=== PATIENT | female | born 1930 | race Caucasian/White ===

== ENCOUNTER 2016-08-01 15:11 | Outpatient (CLI) | payer MEDICARE, MEDICAID | END 2016-08-01 15:12 | disposition home or self-care (01) | DX: M50.30 Other cervical disc degeneration, unspecified cervical region (principal); M47.812 Spondylosis without myelopathy or radiculopathy, cervical region ==

== ENCOUNTER 2017-08-31 13:20 | Outpatient (CLI) | payer MEDICARE, MEDICAID ==
--- NOTE | 2017-09-01 18:39 | Mammography Report ---
DIGITAL SCREENING MAMMOGRAM: 08/31/2017 CLINICAL INDICATION: An 87-year-old with family history of breast cancer for screening. COMPARISON: 07/2015, 02/2012, 10/2009. TECHNIQUE: Routine CC and MLO projections were obtained of the breasts. FINDINGS: The breasts again demonstrate heterogeneously dense fibroglandular parenchyma bilaterally. Coarse and punctate, typically benign calcifications are present. No suspicious masses, clustered microcalcifications or regions of architectural distortion are identified. IMPRESSION: BENIGN FINDINGS. RECOMMENDATIONS: Routine annual screening unless otherwise clinically indicated. BIRADS category 2 benign findings. STANDARD QUALIFYING STATEMENTS 1. This examination was reviewed with the aid of Computed-Aided Detection (CAD). 2. A negative or benign imaging report should not delay biopsy if clinically suspicious findings are present. Consider surgical consultation if warranted. More than 5% of cancers are not identified by imaging. 3. Dense breasts may obscure an underlying neoplasm. TD: 09/01/2017 18:37
== END 2017-08-31 13:21 | disposition home or self-care (01) ==
LOC: DI 13:20
PROVIDERS: ATTEND Internal Medicine
DX: Z12.31 Encounter for screening mammogram for malignant neoplasm of breast (principal); Z80.3 Family history of malignant neoplasm of breast
CPT/HCPCS: 77067

== ENCOUNTER 2017-12-13 12:56 | Observation (INO) | payer MEDICARE, MEDICAID ==
--- NOTE | 2017-12-13 13:59 | XRAY Report ---
EXAM: CHEST RADIOGRAPHY EXAM DATE: 12/13/2017 01:46 PM. CLINICAL HISTORY: Dizzy, chest pain. COMPARISON: None. TECHNIQUE: 2 views. FINDINGS: Lungs/Pleura: There are peripheral reticular interstitial densities bilaterally. There is no consolid ation or pleural effusion. Negative for pneumothorax. Mediastinum: There is a moderate-sized retrocardiac density with air-fluid level consistent with hiat al hernia. Heart size is normal. There is mild/moderate aortic arch atherosclerotic calcification. Other: None. IMPRESSION: 1. Moderate-sized hiatal hernia. 2. Peripheral reticular interstitial density, most suggestive of chronic airway thickening versus int erstitial fibrosis. [facility] Referring Provider Line: [phone] SITE ID: [id number]
--- NOTE | 2017-12-13 13:59 | XRAY Preliminary Report ---
Exam: XR CHEST 2 VIEW X-RAY IMPRESSION: 1. Moderate-sized hiatal hernia. 2. Peripheral reticular interstitial density, most suggestive of chronic airway thickening versus int erstitial fibrosis. [facility] SITE ID: [id number]
[2017-12-13 14:04] LABS: BASOPHILS % (AUTO) 0.3 %; EOSINOPHILS # (AUTO) 0.1 10^3/uL (0.0-0.7); EOSINOPHILS % (AUTO) 1.1 %; HGB - HEMOGLOBIN 12.5 g/dL (12.0-16.0); LYMPHOCYTES # (AUTO) 0.8 10^3/uL (1.5-3.5); LYMPHOCYTES % (AUTO) 9.8 %; MEAN CORPUSCULAR HEMOGLOBIN 28.1 pg (27.0-31.0); MEAN CORPUSCULAR HGB CONC 33.2 g/dL (32.0-36.0); MEAN CORPUSCULAR VOLUME 84.9 fL (81.0-99.0); MONOCYTES # (AUTO) 0.4 10^3/uL (0.0-1.0); NEUTROPHILS # (AUTO) 6.9 10^3/uL (1.5-6.6); NEUTROPHILS % (AUTO) 83.8 %; PLT - PLATELET COUNT 229 10^3/uL (130-450); RED BLOOD COUNT 4.45 10^6/uL (4.20-5.40); RED CELL DISTRIBUTION WIDTH 14.2 % (12.0-15.0); WHITE BLOOD COUNT 8.2 x10^3/uL (4.8-10.8)
--- NOTE | 2017-12-13 14:13 | ED Physician Documentation ---
PD HPI ABD PAIN - Stated complaint Stated Complaint: DIZZY/RIB PX - Chief complaint Chief Complaint: Cardiac - History obtained from History obtained from: Patient, Friend - History of Present Illness Timing - onset: Today Timing - duration: Hours Timing - details: Gradual onset, Still present Quality: Sharp, Pain Location: RUQ Improved by: Laying still Worsened by: Moving, Breathing, Position, Palpation Associated symptoms: Nausea, Dizzy, Near syncope / syncope Similar symptoms before: Has not had sx before Recently seen: Not recently seen - Additional information Additional information: 87-year-old female was well last week and yesterday evening she began to have some chills and this morning while she was in [employer] she began to have some right upper quadrant pain she developed diaphoresis and nausea and felt faint. She is brought here to the emergency department by a friend for evaluation. Review of Systems Constitutional: reports: Chills. denies: Fever Eyes: denies: Decreased vision Ears: denies: Ear pain Nose: denies: Rhinorrhea / runny nose, Congestion Throat: denies: Sore throat Cardiac: denies: Chest pain / pressure, Palpitations Respiratory: denies: Dyspnea, Cough GI: reports: Abdominal Pain, Nausea. denies: Vomiting : denies: Dysuria, Frequency Skin: denies: Rash Musculoskeletal: denies: Neck pain, Back pain Neurologic: denies: Generalized weakness, Focal weakness, Numbness PD PAST MEDICAL HISTORY - Past Medical History Cardiovascular: Hypertension Musculoskeletal: Osteoarthritis - Allergies Allergies/Adverse Reactions: Allergies Allergy/AdvReac Type Severity Reaction Status Date / Time No Known Drug Allergies Allergy Verified 12/13/17 13:05 PD ED PE NORMAL - Vitals Vital signs reviewed: Yes (hypertensiv mild, bradycardic) - General General: No acute distress, Well developed/nourished - HEENT HEENT: Atraumatic, PERRL, EOMI - Neck Neck: Supple, no meningeal sign, No bony TTP - Cardiac Cardiac: RRR, No murmur - Respiratory Respiratory: No respiratory distress, Other (bibasilar rales ) - Abdomen Abdomen: Soft, Other (RUQ tenderness with + jones's ) - Back Back: No CVA TTP, No spinal TTP - Derm Derm: Normal color, Warm and dry, No rash - Extremities Extremities: No deformity, No edema - Neuro Neuro: No motor deficit, No sensory deficit Eye Opening: Spontaneous Motor: Obeys Commands Verbal: Oriented GCS Score: 15 - Psych Psych: Normal mood, Normal affect Results - Vitals Vitals: Vital Signs - 24 hr 12/13/17 13:03 Temperature 35.8 C L Heart Rate 45 L Respiratory 16 Rate Blood Pressure 148/68 H O2 Saturation 99 Oxygen O2 Source Room air - EKG (time done) 1314 Rate: Rate (enter#) (48) Rhythm: Sinus bradycardia Compare to prior EKG: Old EKG unavailable Computer interpretation: Disagree with computer (I do not see q-waves in the lateral leads) - Labs Labs: Laboratory Tests 12/13/17 12/13/17 12/13/17 13:58 13:58 13:58 WBC 8.2 RBC 4.45 Hgb 12.5 Hct 37.8 MCV 84.9 MCH 28.1 MCHC 33.2 RDW 14.2 Plt Count 229 MPV 8.0 Neut # 6.9 H Lymph # 0.8 L King # 0.4 Eos # 0.1 Baso # 0.0 Absolute Nucleated RBC 0.00 Nucleated RBC % 0.0 Sodium 131 L Potassium 3.6 Chloride 97 L Carbon Dioxide 26 Anion Gap 8.0 BUN 21 H Creatinine 0.8 Estimated GFR (MDRD) 68 L Glucose 128 H Calcium 9.3 Total Bilirubin 0.9 AST 22 ALT 15 Alkaline Phosphatase 68 Troponin I < 0.04 Total Protein 7.3 Albumin 4.0 Globulin 3.3 Albumin/Globulin Ratio 1.2 Lipase 31 - Rads (name of study) 2 veiw chest Radiology: Prelim report reviewed (Impression: 1. Moderate sized hiatal hernia 2. peripheral reticular interstitial density, most suggestive of chronic airway thickening versus interstitial fibrosis.), EMP read indepedently, See rad report abd ultrasound Radiology: Prelim report reviewed (Impression: Distended thick-walled gallbladder containing sludge. Unable to accurately assess for sonographic Jones sign is patient received pain medications prior to the exam. Gallbladder wall is thickening is a nonspecific sign which can be seen with cholecystitis as well as systemic process including pancreatitis hepatitis and others.), EMP read indepedently, See rad report Procedures - Bedside sono Bedside sono by EMP: With the use of bedside ultrasound the abdomen is examined in the right upper quadrant. There is an enlarged tender gallbladder with a thickened wall that reproduces the pain the patient is experiencing. There are no obvious stones the gallbladder is distended and tender. - IVC sono (time) 1404 Bedside IVC sono: IVC measures (cm) (1.32), Dehydration (minimal est 500ml deficit) PD MEDICAL DECISION MAKING - ED course Complexity details: reviewed old records, reviewed results, re-evaluated patient , considered differential, d/w patient, d/w family ED course: 87 y/o female was well yesterday and today she has significant right upper quadrant tenderness and pain that caused a near syncopal episode while she was in [employer]. She is come to the emergency department for evaluation and we have discovered an enlarged tender gallbladder with a thickened wall. She is diagnosed with cholecystitis. Dr. Popeye Gonzales is consulted in the case and will admit the patient to observation as she is now pain free and has a normal WBC after administration of toradal. Departure - Departure Disposition: ED Place in Observation Clinical Impression: Cholecystitis, acute Condition: Stable
[2017-12-13 14:16] LABS: ALBUMIN/GLOBULIN RATIO 1.2 (1.0-2.2); BILIRUBIN,TOTAL 0.9 mg/dL (0.2-1.0); CALCIUM 9.3 mg/dL (8.5-10.3); CREATININE 0.8 mg/dL (0.4-1.0); TOTAL PROTEIN 7.3 g/dL (6.7-8.2)
[2017-12-13] MEDS ORDERED: SODIUM CHLORIDE 0.9% 500 ML IV ONE (14:38)
[2017-12-13] MEDS ORDERED: KETOROLAC 60 MG/2 ML VIAL IVP STA (15:50)
--- NOTE | 2017-12-13 17:09 | Ultrasound Report ---
EXAM: ABDOMEN ULTRASOUND LIMITED, RUQ EXAM DATE: 12/13/2017 04:21 PM. CLINICAL HISTORY: Right upper quadrant tenderness with nausea/vomiting. COMPARISON: None. TECHNIQUE: Real-time scanning was performed with static images obtained. FINDINGS: Liver: Normal parenchymal echotexture. Main portal vein flow: Hepatopetal. Gallbladder: Distended and thick walled, the wall measuring up to 9 mm. Contains sludge. No sonograph ic Jones's sign, however, patient had received pain medications. Biliary System: CBD measures 5 mm. No intrahepatic or extrahepatic ductal dilatation. Right Kidney: 10.4 cm in length. Normal parenchymal echotexture. The visualized shadowing stones or h ydronephrosis. IMPRESSION: Distended, thick-walled gallbladder containing sludge. Unable to accurately assess for so nographic Jones's sign as patient received pain medications prior to the exam. Gallbladder wall thic kening is a nonspecific sign which can be seen with cholecystitis as well as systemic processes inclu ding pancreatitis, hepatitis, others. [facility] Referring Provider Line: [phone] SITE ID: [id number]
[2017-12-13] MEDS ORDERED: SODIUM CHLORIDE FLUSH 0.9% 10 ML SYRINGE IVP PRN (18:46)
[2017-12-13] MEDS ORDERED: ACETAMINOPHEN 1,000 MG/100 ML 100 ML IV PRN (18:46)
[2017-12-13] MEDS ORDERED: LACTATED RINGERS 1,000 ML IV SCH (19:00)
[2017-12-13] MEDS ORDERED: SODIUM CHLORIDE 0.9% 1,000 ML IV SCH (19:00)
--- NOTE | 2017-12-13 19:07 | CONSULTATION NOTE ---
Referring Provider Name of Referring Provider:: Dr. Marcano Consult Date: 12/13/17 Chief Complaint - Chief Complaint Chief Complaint: abdominal pain History of Present Illness - Admitted From Admitted From:: ER - History Obtained From Records Reviewed: yes History obtained from: pt Exam Limitations: none - History of Present Illness HPI Comment/Other: 87 yo female in her usual state of health until she awakend from sleep at 0530 today with RUQ pain, described as constant, steady, 3/10. She went to [facility] and while there noted dizziness, diaphoresis, and nausea, and was brought to the ER for further evaluation. In the ER she was c/o 5/10 pain and was given ketorolac following which her pain has resolved and she feels back to normal now. No hx prior similar episodes, hepatitis/jaundice, vomiting, wt loss, change in bowel habits, fever/chills, melena, hematochezia. Neg FH gallbladder disease and CRC. She has a hx of GERD which is well controlled with PPI therapy ; no dysphagia. No hx PUD. No use of NSAIDs, tobacco, or alcohol. History - Past Medical History Cardiovascular: reports: Hypertension Respiratory: reports: None Neuro: reports: None Endocrine/Autoimmune: reports: HyPOthyroidism GI: reports: GERD HEENT: reports: Chronic hearing loss Psych: reports: None Musculoskeletal: reports: Osteoarthritis MRSA Hx?: No - Past Surgical History General: reports: Colonoscopy (2006 several small polyps removed 10yr f/u rec per pt) /[employer]: reports: Hysterectomy HEENT: reports: Other (stapedectomy bilat) - Family & Social History Living arrangement: At home Living Situation: Alone - Substance History Use: Uses substance without health or social issues: NONE Abuse: Recurrent use of substance despite neg consequences: NONE Dependence: Experiences withdrawal or developed tolerances: NONE - POLST Patient has POLST: No POLST Status: Full Code Meds/Allgy - Home Medications Home Medications: Ambulatory Orders Medication Instructions Recorded Confirmed Levothyroxine [Synthroid] 125 mcg PO QDAC 12/13/17 12/13/17 Lisinopril/Hydrochlorothiazide 1 each PO DAILY 12/13/17 12/13/17 [Lisinopril-Hctz 20-12.5 mg Tab] Omeprazole [PriLOSEC] 20 mg PO DAILY 12/13/17 12/13/17 - Allergies Allergies/Adverse Reactions: Allergies Allergy/AdvReac Type Severity Reaction Status Date / Time No Known Drug Allergies Allergy Verified 12/13/17 13:05 Review of Systems - Constitutional Constitutional: reports: Diaphoresis. denies: Fever, Chills, Weight gain, Weight loss - Cardiovascular Cariovascular: reports: Lightheadedness, Exertional dyspnea. denies: Irregular heart rate, Palpitations, Chest pain, Edema, Syncope - Respiratory Respiratory: reports: SOB with exertion. denies: Cough, Sputum production, Wheezing, SOB at rest - Gastrointestinal Gastrointestinal: reports: Abdominal pain, Nausea. denies: Abdominal distention , Constipation, Diarrhea, Change in bowel habits, Rectal bleeding, Black stools , Bloody stools, Vomiting - Genitourinary Genitourinary: reports: Frequency. denies: Dysuria - Musculoskeletal Musculoskeletal: reports: Back pain - Hematologic/Lymphatic Hematologic/Lymphatic: denies: Bruising, Blood clots, Bleeding tendencies - All Other Systems All Other Systems: reports: Reviewed and negative Exam - Vital Signs Reviewed Vital Signs: Yes Vital Signs: Vital Signs x48h Temp Pulse Resp BP Pulse Ox 12/13/17 13:03 35.8 C L 45 L 16 148/68 H 99 - Physical Exam General Appearance: positive: No acute distress, Alert Eyes Bilateral: positive: Normal inspection, No scleral icterus ENT: positive: ENT inspection nml, Pharynx nml, No signs of dehydration Neck: positive: Nml inspection, No JVD. negative: Lymphadenopathy (R), Lymphadenopathy (L) Respiratory: positive: Chest non-tender, No respiratory distress, Breath sounds nml. negative: Wheezes, Rales, Rhonchi Cardiovascular: positive: Regular rate & rhythm, No murmur, No gallop Abdomen: positive: Nml bowel sounds, Tenderness (minimal RUQ tenderness to deep palpation; neg Jones's sign). negative: No organomegaly, No distention, Guarding, Rebound, Hepatomegaly, Splenomegaly, Mass Back: positive: Nml inspection. negative: CVA tenderness (R), CVA tenderness (L ) Skin: positive: Color nml, Warm, Dry. negative: Diaphoresis Extremities: positive: Non-tender, Nml appearance, No pedal edema. negative: Calf tenderness Neurologic/Psychiatric: positive: Oriented x3 Conclusion/Plan - Diagnosis Diagnosis: RUQ pain, resolving, likely due to biliary colic or subacute acalculous cholecystitis in elderly female. Bradycardia of unclear etiology. - Plan Plan: Admit for observation and hospitalist consultation. If pain recurs, then will recommend lap michelle if cleared medically for surgery. Discussed with pt who agrees with this plan. - Lab Results Fish Bones: 12/13/17 13:58 12/13/17 13:58 - Diagnostic Imaging Results Diagnostic Imaging Results: positive: Final report reviewed Diagnostic Imaging Results Comments: CT abd/pelvis: indistinct gb wall; rec US for further eval ABD US: thickened gb wall, sludge but no stones in gb; nl bile ducts; no pericholecystic fluid; neg Jones's sign. CXR: possible mild pulm fibrosis; NAD - EKG Results EKG Interpreted Independently: No EKG Findings: sinus bradycardia rate in 40s
[2017-12-13 20:12] LABS: BILIRUBIN,URINE NEGATIVE (NEGATIVE); GLUCOSE, URINE (UA) NEGATIVE (NEGATIVE); KETONES,URINE (UA) NEGATIVE (NEGATIVE); LEUKOCYTE ESTERASE, URINE NEGATIVE (NEGATIVE); NITRITE,URINE NEGATIVE (NEGATIVE); OCCULT BLOOD,URINE TRACE-INTA (NEGATIVE); PROTEIN,URINE NEGATIVE (NEGATIVE); UROBILINOGEN,URINE 0.2 (NORMAL) E.U./dL (NORMAL)
[2017-12-13 20:14] LABS: CLARITY,URINE CLEAR (CLEAR)
[2017-12-13] MEDS ORDERED: cloNIDine 0.1 MG PATCH TOP SCH (21:00)
[2017-12-13] MEDS: cloNIDine 0.1 MG TABLET PO PRN ×2 (21:06→21:35)
[2017-12-13] MEDS: SODIUM CHLORIDE 0.9% 1,000 ML IV SCH (21:07)
[2017-12-13] MEDS: SODIUM CHLORIDE 1 GM TABLET PO SCH (21:35)
[2017-12-14] MEDS: SODIUM CHLORIDE FLUSH 0.9% 10 ML SYRINGE IVP SCH ×2 (00:03→09:43)
[2017-12-14] MEDS ORDERED: cloNIDine 0.2 MG PATCH TOP SCH (01:00)
--- NOTE | 2017-12-14 01:20 | CONSULTATION NOTE ---
Referring Provider Name of Referring Provider:: Popeye Gonzales MD Consult Date: 12/13/17 Chief Complaint - Chief Complaint Chief Complaint: Nausea, RUQ pain History of Present Illness - Admitted From Admitted From:: Home - History Obtained From History obtained from: patient, ED physician Exam Limitations: None noted - History of Present Illness HPI Comment/Other: Mrs. Vidhya Lorenzana is a very pleasant 87-year-old woman who has had abdominal pain beginning yesterday with associated nausea. When the pain did not go away she came to the emergency department for evaluation and treatment. While here a CAT scan of her abdomen suggests that she may have cholecystitis and her admitting physician, Dr. Popeye Gonzales, has consulted the hospitalist team for medical management and evaluation/treatment of her bradycardia which was 45 in the ED but has since resolved. History - Past Medical History Cardiovascular: reports: Hypertension Respiratory: reports: None Neuro: reports: None Endocrine/Autoimmune: reports: HyPOthyroidism GI: reports: GERD : reports: Incontinence HEENT: reports: Chronic hearing loss Psych: reports: None Musculoskeletal: reports: Osteoarthritis Derm: reports: None, Other MRSA Hx?: No - Past Surgical History General: reports: Colonoscopy (2006 several small polyps removed 10yr f/u rec per pt) /[employer]: reports: Hysterectomy HEENT: reports: Other (stapedectomy bilat) - Family & Social History Living arrangement: At home Living Situation: Alone - Substance History Use: Uses substance without health or social issues: NONE Abuse: Recurrent use of substance despite neg consequences: NONE Dependence: Experiences withdrawal or developed tolerances: NONE - POLST Patient has POLST: No POLST Status: Full Code Meds/Allgy - Home Medications Home Medications: Ambulatory Orders Medication Instructions Recorded Confirmed Calcium Carbonate/Vitamin D3 12/13/17 [Calcium 250-Vit D3 125 Tablet] Levothyroxine [Synthroid] 125 mcg PO QDAC 12/13/17 12/13/17 Lisinopril/Hydrochlorothiazide 1 each PO DAILY 12/13/17 12/13/17 [Lisinopril-Hctz 20-12.5 mg Tab] Multivitamin [Multivitamins] 1 each PO 12/13/17 Omeprazole [PriLOSEC] 20 mg PO DAILY 12/13/17 12/13/17 - Allergies Allergies/Adverse Reactions: Allergies Allergy/AdvReac Type Severity Reaction Status Date / Time No Known Drug Allergies Allergy Verified 12/13/17 13:05 Review of Systems - Constitutional Constitutional: reports: Poor appetite. denies: Fatigue, Fever, Chills, Malaise - Eyes Eyes: denies: Pain, Irritation, Amaurosis, Blurred vision, Dipolpia - Ears, Nose & Throat Ears, Nose & Throat: reports: Hearing loss, Hearing aids. denies: Ear pain, Tinnitus, Vertigo, Nasal pain, Nasal discharge, Nosebleeds, Nasal congestion - Cardiovascular Cariovascular: denies: Irregular heart rate, Palpitations, Chest pain, Edema, Syncope - Respiratory Respiratory: denies: Cough, Sputum production, Wheezing, Snoring, Hemoptysis, Orthopnea, SOB at rest, SOB with exertion - Gastrointestinal Gastrointestinal: reports: Abdominal pain, Nausea. denies: Abdominal distention , Constipation, Diarrhea, Change in bowel habits, Vomiting - Genitourinary Genitourinary: denies: Dysuria, Frequency, Urgency, Hematuria - Musculoskeletal Musculoskeletal: denies: Muscle pain, Back pain, Muscle aches, Stiffness - Integumentary Integumentary: denies: Rash, Pruritis, Lesions, Dryness - Neurological Neurological: denies: General weakness, Focal weakness, Headache, Dizziness - Psychiatric Psychiatric: denies: Depression, Anxiety, Suicidal, Hallucinations - Endocrine Endocrine: denies: Polyuria, Polydypsia, Polyphagia - Hematologic/Lymphatic Hematologic/Lymphatic: denies: Anemia, Bruising, Petechiae, Lymphadenopathy - All Other Systems All Other Systems: reports: Reviewed and negative Exam - Vital Signs Reviewed Vital Signs: Yes Vital Signs: Vital Signs x48h Temp Pulse Resp BP BP Pulse Ox 12/13/17 23:46 36.9 C 62 17 130/53 L 96 12/13/17 20:08 36.0 C L 69 18 206/67 H 96 12/13/17 19:55 18 208/70 H 96 - Physical Exam General Appearance: positive: No acute distress, Alert. negative: Anxious, Lethargic Eyes Bilateral: positive: Normal inspection, PERRL, EOMI, No lid inflammation, Conjunctivae nml, No scleral icterus ENT: positive: ENT inspection nml, Pharynx nml, No signs of dehydration Neck: positive: Nml inspection, Thyroid nml, No JVD, Trachea midline. negative : Thyromegaly Respiratory: positive: Chest non-tender, No respiratory distress, Breath sounds nml. negative: Wheezes, Rales, Rhonchi Cardiovascular: positive: Regular rate & rhythm, No murmur, No gallop Peripheral Pulses: positive: 1+ Abdomen: positive: No organomegaly, Nml bowel sounds, No distention, Tenderness , Guarding. negative: Rebound, Hepatomegaly, Splenomegaly, Mass Back: positive: Nml inspection. negative: CVA tenderness (R), CVA tenderness (L ) Skin: positive: Color nml, No rash, Warm, Dry. negative: Cyanosis Extremities: positive: Non-tender, Full ROM, Nml appearance, No pedal edema Neurologic/Psychiatric: positive: Oriented x3, CN's nml (2-12), Motor nml, Sensation nml, Mood/affect nml Conclusion/Plan - Diagnosis Diagnosis: 1) RUQ pain, likely cholecystitis. Pt is currently NPO, may have surgery tomorrow. Coag studies ordered, corecting slight electrolyte abnormalities. 2) Bradycardia on admission, now resolved. Pt is not on any beta blockers or calcium channel blockers. Will check echocardiogram, troponin. 3) Hypothyroidism, continue synthroid. 4) Hypertension, continue ACEI - Lab Results Lab results reviewed: Yes Fish Bones: 12/13/17 13:58 12/13/17 13:58 - Diagnostic Imaging Results Diagnostic Imaging Results: positive: Final report reviewed Diagnostic Imaging Results Comments: EXAM: CHEST RADIOGRAPHY EXAM DATE: 12/13/2017 01:46 PM. CLINICAL HISTORY: Dizzy, chest pain. COMPARISON: None. TECHNIQUE: 2 views. FINDINGS: Lungs/Pleura: There are peripheral reticular interstitial densities bilaterally. There is no consolidation or pleural effusion. Negative for pneumothorax. Mediastinum: There is a moderate-sized retrocardiac density with air-fluid level consistent with hiatal hernia. Heart size is normal. There is mild/moderate aortic arch atherosclerotic calcification. Other: None. IMPRESSION: 1. Moderate-sized hiatal hernia. 2. Peripheral reticular interstitial density, most suggestive of chronic airway thickening versus interstitial fibrosis. EXAM: ABDOMEN ULTRASOUND LIMITED, RUQ EXAM DATE: 12/13/2017 04:21 PM. CLINICAL HISTORY: Right upper quadrant tenderness with nausea/vomiting. COMPARISON: None. TECHNIQUE: Real-time scanning was performed with static images obtained. FINDINGS: Liver: Normal parenchymal echotexture. Main portal vein flow: Hepatopetal. Gallbladder: Distended and thick walled, the wall measuring up to 9 mm. Contains sludge. No sonographic Jones's sign, however, patient had received pain medications. Biliary System: CBD measures 5 mm. No intrahepatic or extrahepatic ductal dilatation. Right Kidney: 10.4 cm in length. Normal parenchymal echotexture. The visualized shadowing stones or hydronephrosis. IMPRESSION: Distended, thick-walled gallbladder containing sludge. Unable to accurately assess for sonographic Jones's sign as patient received pain medications prior to the exam. Gallbladder wall thickening is a nonspecific sign which can be seen with cholecystitis as well as systemic processes including pancreatitis, hepatitis, others. - EKG Results EKG Interpreted Independently: Yes EKG Comparison: Old EKG unavailable EKG Findings: Sinus bradycardia, rate 48.
[2017-12-14 05:18] LABS: BASOPHILS % (AUTO) 0.4 %; EOSINOPHILS # (AUTO) 0.1 10^3/uL (0.0-0.7); EOSINOPHILS % (AUTO) 1.2 %; HGB - HEMOGLOBIN 11.2 g/dL (12.0-16.0); LYMPHOCYTES % (AUTO) 15.2 %; MEAN CORPUSCULAR HEMOGLOBIN 28.2 pg (27.0-31.0); MEAN CORPUSCULAR HGB CONC 33.3 g/dL (32.0-36.0); MEAN CORPUSCULAR VOLUME 84.8 fL (81.0-99.0); MEAN PLATELET VOLUME 8.2 fL (7.9-10.8); MONOCYTES # (AUTO) 0.7 10^3/uL (0.0-1.0); MONOCYTES % (AUTO) 10.2 %; NEUTROPHILS # (AUTO) 4.9 10^3/uL (1.5-6.6); PLT - PLATELET COUNT 200 10^3/uL (130-450); RED BLOOD COUNT 3.97 10^6/uL (4.20-5.40); RED CELL DISTRIBUTION WIDTH 14.3 % (12.0-15.0); WHITE BLOOD COUNT 6.7 x10^3/uL (4.8-10.8)
[2017-12-14 05:27] LABS: ALBUMIN 3.3 g/dL (3.2-5.5); ALBUMIN/GLOBULIN RATIO 1.2 (1.0-2.2); BILIRUBIN,TOTAL 0.8 mg/dL (0.2-1.0); CALCIUM 8.9 mg/dL (8.5-10.3); CREATININE 0.6 mg/dL (0.4-1.0)
[2017-12-14 05:30] LABS: PT - PROTHROMBIN TIME 11.5 secs (9.9-12.6)
[2017-12-14] MEDS: SODIUM CHLORIDE 0.9% 1,000 ML IV SCH (06:21)
[2017-12-14] MEDS ORDERED: SODIUM CHLORIDE 0.9% 1,000 ML IV SCH (08:17)
--- NOTE | 2017-12-14 08:20 | PROVIDER PROGRESS NOTE ---
Subjective - Prog Note Date Prog Note Date: 12/14/17 Prog Note Time: 08:18 - Subjective Pt reports feeling: No change Subjective: pt c/o minimal RUQ discomfort when taking a deep breath, no N/V; does not call it pain and doesn't want any analgesics; is hungry; wants to avoid surgery unless absolutely necessary. Current Medications - Current Medications Current Medications: Active Medications Generic Name Dose Route Start Last Admin Trade Name Freq PRN Reason Stop Dose Admin Clonidine HCl 0.1 mg 12/13/17 20:39 12/13/17 21:06 Catapres PO 0.1 mg Q2H PRN Administration SBP>140 or DBP>90 Clonidine HCl 1 patch 12/14/17 01:00 12/14/17 02:42 [id number] TOP Not Given Q7D GIANA Enoxaparin Sodium 40 mg 12/14/17 09:00 Lovenox SUBQ DAILY GIANA Acetaminophen 100 mls @ 400 mls/hr 12/13/17 18:46 Ofirmev IV Q6HR PRN PAIN Potassium Chloride 10 meq in 100 mls @ 100 mls/hr 12/14/17 08:03 Potassium Chloride IV 12/14/17 10:02 Q1H GIANA Sodium Chloride 1,000 mls @ 50 mls/hr 12/14/17 08:17 Normal Saline 0.9% IV .Q20H GIANA Nystatin 1 applic 12/14/17 09:00 Nystop TOP BID GIANA Sodium Chloride 10 ml 12/14/17 01:00 12/14/17 00:03 Normal Saline Flush 0.9% IVP Not Given 0100,0900,1700 GIANA Sodium Chloride 10 ml 12/13/17 18:46 Normal Saline Flush 0.9% IVP PRN PRN NEEDED PER PROVIDER ORDERS Sodium Chloride 1 gm 12/13/17 20:00 12/13/17 21:35 Salt Tab PO 1 gm DAILY GIANA Administration Calcium Carbonate/Vitamin D3 [Calcium 250-Vit D3 125 Tablet] 12/13/17 Levothyroxine [Synthroid] 125 mcg PO QDAC 12/13/17 Lisinopril/Hydrochlorothiazide [Lisinopril-Hctz 20-12.5 mg Tab] 1 each PO DAILY 12/13/17 Multivitamin [Multivitamins] 1 each PO 12/13/17 Omeprazole [PriLOSEC] 20 mg PO DAILY 12/13/17 Objective - Vital Signs/Intake & Output Reviewed Vital Signs: Yes Vital Signs: Vital Signs x48h Temp Pulse Resp BP Pulse Ox 12/14/17 04:47 36.9 C 58 L 17 118/48 L 96 12/14/17 02:43 55 L 132/55 H 12/14/17 02:40 37.0 C 62 18 147/61 H 97 Intake & Output: Intake & Output 12/11/17 12/12/17 12/13/17 12/14/17 23:59 23:59 23:59 23:59 Intake Total 923.333 Balance 923.333 - Objective General Appearance: positive: No acute distress, Alert Eyes Bilateral: positive: Normal inspection, No scleral icterus ENT: positive: Pharynx nml, No signs of dehydration Neck: positive: Nml inspection, No JVD Respiratory: positive: Chest non-tender, No respiratory distress, Breath sounds nml, Rales (fine right basilar rales) Cardiovascular: positive: Regular rate & rhythm, No murmur, No gallop Abdomen: positive: No organomegaly, Nml bowel sounds, No distention, Tenderness (minimal to deep palpation in RUQ; neg Jones's; no peritoneal signs). negative : Guarding, Rebound, Hepatomegaly, Splenomegaly, Mass Skin: positive: Color nml, Warm, Dry Extremities: positive: Non-tender, No pedal edema. negative: Calf tenderness Neurologic/Psychiatric: positive: Oriented x3 - Lab Results Fish Bones: 12/14/17 04:43 12/14/17 04:43 Other Labs: Lab Results x24hrs 12/14/17 12/14/17 12/14/17 Range/Units 04:43 04:43 04:43 WBC (4.8-10.8) x10^3/uL RBC (4.20-5.40) 10^6/uL Hgb (12.0-16.0) g/dL Hct (37.0-47.0) % MCV (81.0-99.0) fL MCH (27.0-31.0) pg MCHC (32.0-36.0) g/dL RDW (12.0-15.0) % Plt Count (130-450) 10^3/uL MPV (7.9-10.8) fL Neut # (1.5-6.6) 10^3/uL Lymph # (1.5-3.5) 10^3/uL [place] # (0.0-1.0) 10^3/uL Eos # (0.0-0.7) 10^3/uL Baso # (0.0-0.1) 10^3/uL Absolute Nucleated RBC x10^3/uL Nucleated RBC % /100WBC PT 11.5 (9.9-12.6) secs INR 1.0 (0.8-1.2) APTT 28.0 (24.9-33.3) secs Sodium (135-145) mmol/L Potassium (3.5-5.0) mmol/L Chloride (101-111) mmol/L Carbon Dioxide (21-32) mmol/L Anion Gap (6-13) BUN (6-20) mg/dL Creatinine (0.4-1.0) mg/dL Estimated GFR (MDRD) (>89) Glucose (70-100) mg/dL Calcium (8.5-10.3) mg/dL Total Bilirubin (0.2-1.0) mg/dL AST (10-42) IU/L ALT (10-60) IU/L Alkaline Phosphatase (42-121) IU/L Total Protein (6.7-8.2) g/dL Albumin (3.2-5.5) g/dL Globulin (2.1-4.2) g/dL Albumin/Globulin Ratio (1.0-2.2) TSH 0.64 (0.34-5.60) uIU/mL Urine Color Urine Clarity (CLEAR) Urine pH (5.0-7.5) PH Ur Specific [place] (1.002-1.030) Urine Protein (NEGATIVE) mg/dL Urine Glucose (UA) (NEGATIVE) mg/dL Urine Ketones (NEGATIVE) mg/dL Urine Occult Blood (NEGATIVE) Urine Nitrite (NEGATIVE) Urine Bilirubin (NEGATIVE) Urine Urobilinogen (NORMAL) E.U./dL Ur Leukocyte Esterase (NEGATIVE) Ur Microscopic Review Urine Culture Comments 12/14/17 12/14/17 12/13/17 Range/Units 04:43 04:43 20:00 WBC 6.7 (4.8-10.8) x10^3/uL RBC 3.97 L (4.20-5.40) 10^6/uL Hgb 11.2 L (12.0-16.0) g/dL Hct 33.6 L (37.0-47.0) % MCV 84.8 (81.0-99.0) fL MCH 28.2 (27.0-31.0) pg MCHC 33.3 (32.0-36.0) g/dL RDW 14.3 (12.0-15.0) % Plt Count 200 (130-450) 10^3/uL MPV 8.2 (7.9-10.8) fL Neut # 4.9 (1.5-6.6) 10^3/uL Lymph # 1.0 L (1.5-3.5) 10^3/uL [place] # 0.7 (0.0-1.0) 10^3/uL Eos # 0.1 (0.0-0.7) 10^3/uL Baso # 0.0 (0.0-0.1) 10^3/uL Absolute Nucleated RBC 0.00 x10^3/uL Nucleated RBC % 0.0 /100WBC PT (9.9-12.6) secs INR (0.8-1.2) APTT (24.9-33.3) secs Sodium 136 (135-145) mmol/L Potassium 3.3 L (3.5-5.0) mmol/L Chloride 102 (101-111) mmol/L Carbon Dioxide 26 (21-32) mmol/L Anion Gap 8.0 (6-13) BUN 17 (6-20) mg/dL Creatinine 0.6 (0.4-1.0) mg/dL Estimated GFR (MDRD) 95 (>89) Glucose 98 (70-100) mg/dL Calcium 8.9 (8.5-10.3) mg/dL Total Bilirubin 0.8 (0.2-1.0) mg/dL AST 19 (10-42) IU/L ALT 12 (10-60) IU/L Alkaline Phosphatase 53 (42-121) IU/L Total Protein 6.0 L (6.7-8.2) g/dL Albumin 3.3 (3.2-5.5) g/dL Globulin 2.7 (2.1-4.2) g/dL Albumin/Globulin Ratio 1.2 (1.0-2.2) TSH (0.34-5.60) uIU/mL Urine Color YELLOW Urine Clarity CLEAR (CLEAR) Urine pH 7.0 (5.0-7.5) PH Ur Specific [place] 1.010 (1.002-1.030) Urine Protein NEGATIVE (NEGATIVE) mg/dL Urine Glucose (UA) NEGATIVE (NEGATIVE) mg/dL Urine Ketones NEGATIVE (NEGATIVE) mg/dL Urine Occult Blood [place] (NEGATIVE) Urine Nitrite NEGATIVE (NEGATIVE) Urine Bilirubin NEGATIVE (NEGATIVE) Urine Urobilinogen 0.2 (NORMAL) (NORMAL) E.U./dL Ur Leukocyte Esterase NEGATIVE (NEGATIVE) Ur Microscopic Review NOT INDICATED Urine Culture Comments NOT INDICATED ABX Reporting Has patient been on IV antibiotics over the past 48 hours?: No Assessment/Plan - Problem List (1) Cholecystitis, acute Impression: Very mild subacute acalculous cholecystitis in an 87 yo female. No signs of sepsis or biliary obstruction; no stones noted on US. Plan: pt wishes to avoid surgery if possible; will start low fat diet and continue observation; if sx worsen, will recommend lap michelle. Echocardiogram pending per Dr. Santoyo
[2017-12-14] MEDS ORDERED: ENOXAPARIN 40 MG/0.4 ML SYRINGE SUBQ SCH (09:00)
[2017-12-14] MEDS ORDERED: NYSTATIN POWDER 15 GM TOP SCH (09:00)
[2017-12-14] MEDS: POTASSIUM CHLOR 10 MEQ/100 ML 10 MEQ/100 ML BAG IV SCH ×2 (09:34→10:46)
[2017-12-14] MEDS: SODIUM CHLORIDE 1 GM TABLET PO SCH (09:39)
[2017-12-14] MEDS ORDERED: POTASSIUM CHLORIDE 20 MEQ TABLET PO ONE (11:41)
[2017-12-14 14:38] VITALS: BP 158/54
--- NOTE | 2017-12-14 15:04 | Discharge Plan ---
Discharge Plan Disposition: 01 Home, Self Care Condition: Good Diet: Regular (low fat diet) Activity Restrictions: No Restrictions Shower Restrictions: No Driving Restrictions: No Instruction Topics: Gallstones Additional Instructions or Follow Up instructions: Call Dr. Popeye Gonzales's office at [phone] to arrange for a follow up appointment for 1 week or sooner if pain recurs. No Smoking: If you smoke, Please STOP! Call for help. Follow-up with: Shayna Astorga MD [Primary Care Provider] - 1 Week
--- NOTE | 2017-12-14 15:10 | DISCHARGE SUMMARY ---
"Discharge Summary Admit Date: 12/13/17 Discharge Date: 12/14/17 Discharging Provider: Popeye Gonzales MD Primary Care Provider: Dr. Fuller Code Status: Attempt Resuscitation Condition at Discharge: Good Discharge Disposition: 01 Home, Self Care Discharge Facility Name: [facility] - DIAGNOSES Admission Diagnoses: Subacute cholecystitis Discharge Diagnoses with Status of Each Condition: Same, resolving - HPI History of Present Illness: See admission H & P - CONSULTS | PROCEDURES Consultations: Hospitalist Procedures: None - HOSPITAL COURSE Hospital Course: Pt's pain essentially completely resolved and she was able to tolerate a low fat diet without difficulty. She remained afebrile with stable vs. Her initial bradycardia resolved as well. She preferred nonsurgical treatment of her condition if at all possible so she was discharged home on a low fat diet with plans for outpatient f/u with me and her PCP. - ALLERGIES Allergies/Adverse Reactions: Allergies Allergy/AdvReac Type Severity Reaction Status Date / Time No Known Drug Allergies Allergy Verified 12/13/17 13:05 - MEDICATIONS Home Medications: Ambulatory Orders Medication Instructions Recorded Confirmed Multivitamin [Multivitamins] 1 each PO DAILY 12/13/17 12/14/17 Omeprazole [PriLOSEC] 20 mg PO DAILY 12/13/17 12/13/17 Calcium Carbonate/Vitamin D3 1 each PO BID 12/14/17 12/14/17 [Calcium 600 + Vit D 400 Tablet] Hydrochlorothiazide 12.5 mg PO DAILY 12/14/17 12/14/17 Levothyroxine [Synthroid] 100 mcg PO QDAC 12/14/17 12/14/17 Lisinopril 20 mg PO BID 12/14/17 12/14/17 - PHYSICAL EXAM AT DISCHARGE General Appearance: positive: No acute distress, Alert Eyes Bilateral: positive: Normal inspection ENT: positive: ENT inspection nml Neck: positive: Nml inspection, No JVD Respiratory: positive: Chest non-tender, No respiratory distress, Breath sounds nml Cardiovascular: positive: Regular rate & rhythm, No murmur, No gallop Abdomen: positive: Non-tender, No organomegaly, Nml bowel sounds, No distention. negative: Guarding, Rebound Skin: positive: Color nml, Warm, Dry Extremities: positive: Non-tender. negative: Pedal edema, Calf tenderness Neurologic/Psychiatric: positive: Oriented x3 - LABS Result Diagrams: 12/14/17 04:43 12/14/17 04:43 - DIAGNOSTIC IMAGING Diagnostic Imaging Results: Final report reviewed - FOLLOW UP Follow Up: 1 week with PCP and Dr. Popeye Gonzales - TIME SPENT Time Spent in Discharge (Minutes): 15"
[2017-12-14] MEDS ORDERED: LEVOTHYROXINE 100 MCG TABLET PO SCH (16:00)
[2017-12-14] MEDS ORDERED: LISINOPRIL 20 MG TABLET PO SCH (21:00)
[2017-12-14] MEDS ORDERED: CALCIUM CARBONATE CHEW 500 MG TABLET PO SCH (21:00)
[2017-12-14] MEDS ORDERED: CHOLECALCIFEROL 400 UNIT TABLET PO SCH (21:00)
[2017-12-15] MEDS ORDERED: MULTIVITAMIN TABLET PO SCH (08:00)
[2017-12-15] MEDS ORDERED: hydroCHLOROthiazide 12.5 MG CAPSULE PO SCH (09:00)
== END 2017-12-14 15:45 | disposition home or self-care (01) ==
LOC: ED 12:56 → OBS 18:46
PROVIDERS: ADMIT Internal Medicine Gastroenterology; ATTEND Internal Medicine Gastroenterology
DX: K81.0 Acute cholecystitis (principal); R55 Syncope and collapse; E86.0 Dehydration; I10 Essential (primary) hypertension; R00.1 Bradycardia, unspecified; K21.9 Gastro-esophageal reflux disease without esophagitis; E03.9 Hypothyroidism, unspecified; Z86.010 Personal history of colon polyps
CPT/HCPCS: 36415; 71046; 76705; 80053; 81003; 83690; 84443; 84484; 85025; 85610; 85730; 93005; 96361; 96374; 99283; 99285; A9270; G0378; J1650; 81001; 87086; 96365; 96372; 96375; 99282

== ENCOUNTER 2019-04-26 17:08 | Outpatient (CLI) | payer MEDICARE, MEDICAID | END 2019-04-26 17:09 | disposition critical access hospital (66) | LOC: EMS 17:08 | PROVIDERS: ATTEND Surgery | DX: R10.10 Upper abdominal pain, unspecified (principal); R11.2 Nausea with vomiting, unspecified | CPT/HCPCS: A0425; A0429 ==

== ENCOUNTER 2019-04-26 17:11 | Inpatient (IN) | payer MEDICARE, MEDICAID ==
[2019-04-26] MEDS ORDERED: MORPHINE 2 MG/ML CARPUJECT IVP STA ×2 (17:29→18:31)
[2019-04-26] MEDS ORDERED: ONDANSETRON 4 MG/2 ML VIAL IVP STA (17:29)
--- NOTE | 2019-04-26 17:30 | ED Physician Documentation ---
PD HPI ABD PAIN - Stated complaint Stated Complaint: ABD PAIN - Chief complaint Chief Complaint: Abd Pain - History obtained from History obtained from: Patient, EMS - History of Present Illness Timing - onset: Today (88-year-old woman with a history of hypertension presents with abdominal pain that started this morning. Central and right upper quadrant. Its associated with vomiting and decreased bowel movements. She had a similar episode last year with cholecystitis that was conservatively managed. She says this feels similar but she is more nauseous with this and is having chills which she does not remember last time. She has a history of hysterectomy. She still does have her gallbladder.) Review of Systems Ten Systems: 10 systems reviewed and negative Constitutional: reports: Chills. denies: Fever Cardiac: denies: Chest pain / pressure, Palpitations, Pedal edema, Calf pain Respiratory: denies: Dyspnea, Cough GI: reports: Abdominal Pain. denies: Nausea, Vomiting, Constipation, Diarrhea : denies: Dysuria, Frequency PD PAST MEDICAL HISTORY - Past Medical History Past Medical History: No Cardiovascular: Hypertension Respiratory: None Neuro: None Endocrine/Autoimmune: HyPOthyroidism GI: GERD PATHOLOGY TRANSCRIPTIONIST: None : Incontinence HEENT: Chronic hearing loss Psych: None Musculoskeletal: Osteoarthritis Derm: Other - Past Surgical History Past Surgical History: Yes General: Colonoscopy /PATHOLOGY TRANSCRIPTIONIST: Hysterectomy HEENT: Other - Present Medications Home Medications: Ambulatory Orders Medication Instructions Recorded Confirmed Multivitamin [Multivitamins] 1 each PO DAILY 12/13/17 12/14/17 Omeprazole [PriLOSEC] 20 mg PO DAILY 12/13/17 12/13/17 Calcium Carbonate/Vitamin D3 1 each PO BID 12/14/17 12/14/17 [Calcium 600 + Vit D 400 Tablet] Hydrochlorothiazide 12.5 mg PO DAILY 12/14/17 12/14/17 Levothyroxine [Synthroid] 100 mcg PO QDAC 12/14/17 12/14/17 Lisinopril 20 mg PO BID 12/14/17 12/14/17 - Allergies Allergies/Adverse Reactions: Allergies Allergy/AdvReac Type Severity Reaction Status Date / Time No Known Drug Allergies Allergy Verified 04/26/19 17:19 - Social History Does the pt smoke?: No Smoking Status: Never smoker Does the pt drink ETOH?: No Does the pt have substance abuse?: No - Immunizations Immunizations are current?: Yes - POLST Patient has POLST: No POLST Status: Full Code PD ED PE NORMAL - Vitals Vital signs reviewed: Yes - General General: Alert and oriented X 3, No acute distress - HEENT HEENT: PERRL, EOMI - Neck Neck: Supple, no meningeal sign, No bony TTP - Cardiac Cardiac: RRR, No murmur - Respiratory Respiratory: No respiratory distress, Clear bilaterally - Abdomen Abdomen: Normal bowel sounds, Soft, Other (TTP RUQ) - Back Back: No CVA TTP, No spinal TTP - Derm Derm: Normal color, Warm and dry - Extremities Extremities: No edema, No calf tenderness / cord - Neuro Neuro: Alert and oriented X 3, Normal speech - Psych Psych: Normal mood, Normal affect Results - Vitals Vitals: Vital Signs - 24 hr 04/26/19 04/26/19 04/26/19 17:14 18:40 19:20 Temperature 36.7 C 37 C Heart Rate 80 76 91 Respiratory 18 22 20 Rate Blood Pressure 217/94 H 147/80 H 183/63 H O2 Saturation 97 99 99 Oxygen O2 Source Room air - EKG (time done) 1735 Rate: Rate (enter#) (77) Rhythm: NSR [place]: Normal Intervals: Normal AL QRS: LVH Ischemia: Non specific changes Computer interpretation: Agree with computer - Labs Labs: Laboratory Tests 04/26/19 04/26/19 04/26/19 17:42 17:42 17:42 WBC 16.2 H RBC 4.90 Hgb 13.8 Hct 42.6 MCV 86.9 MCH 28.2 MCHC 32.4 RDW 13.4 Plt Count 246 MPV 9.9 Neut # (Auto) 15.2 H Lymph # (Auto) 0.2 L [place] # (Auto) 0.6 Eos # (Auto) 0.0 Baso # (Auto) 0.1 Absolute Nucleated RBC 0.00 Nucleated RBC % 0.0 Sodium 138 Potassium 3.4 L Chloride 98 L Carbon Dioxide 27 Anion Gap 13.0 BUN 16 Creatinine 0.7 Estimated GFR (MDRD) 79 L Glucose 157 H Calcium 10.0 Total Bilirubin 1.8 H AST 154 H ALT 119 H Alkaline Phosphatase 65 Troponin I High Sens 5.2 Total Protein 7.6 Albumin 4.3 Globulin 3.3 Albumin/Globulin Ratio 1.3 Lipase 1600 H - Rads (name of study) RUQ sono Radiology: EMP read contemporaneously (Biliary sludge, mildlyProminent gallbladder wall and pericholecystic fluid) PD MEDICAL DECISION MAKING - ED course ED course: 88-year-old woman with history of conservatively managed cholecystitis in the past presents with similar episode but she says it is worse this time. Work-up demonstrates pancreatitis with modest elevation of her liver enzymes. Ultrasound as shown. Case discussed by phone with Dr. Popeye Gonzales at 8:05 PM who defers to medicine for admission, recommends no antibiotics at this juncture. Spoke with Dr. Ibarra for admission at 8:10 PM. Departure - Departure Disposition: 66 [facility] DC/Xfer Clinical Impression: Gallstone pancreatitis Condition: Serious
[2019-04-26 17:47] LABS: BASOPHILS # (AUTO) 0.1 10^3/uL (0.0-0.1); BASOPHILS % (AUTO) 0.3 %; EOSINOPHILS % (AUTO) 0.2 %; HGB - HEMOGLOBIN 13.8 g/dL (12.0-16.0); LYMPHOCYTES # (AUTO) 0.2 10^3/uL (1.5-3.5); LYMPHOCYTES % (AUTO) 1.1 %; MEAN CORPUSCULAR HEMOGLOBIN 28.2 pg (27.0-31.0); MEAN CORPUSCULAR HGB CONC 32.4 g/dL (32.0-36.0); MEAN CORPUSCULAR VOLUME 86.9 fL (81.0-99.0); MEAN PLATELET VOLUME 9.9 fL (7.9-10.8); MONOCYTES # (AUTO) 0.6 10^3/uL (0.0-1.0); MONOCYTES % (AUTO) 3.6 %; NEUTROPHILS # (AUTO) 15.2 10^3/uL (1.5-6.6); NEUTROPHILS % (AUTO) 94.3 %; PLT - PLATELET COUNT 246 10^3/uL (130-450); RED CELL DISTRIBUTION WIDTH 13.4 % (12.0-15.0); WHITE BLOOD COUNT 16.2 x10^3/uL (4.8-10.8)
[2019-04-26 18:28] LABS: ALBUMIN 4.3 g/dL (3.2-5.5); ALBUMIN/GLOBULIN RATIO 1.3 (1.0-2.2); BILIRUBIN,TOTAL 1.8 mg/dL (0.2-1.0); CREATININE 0.7 mg/dL (0.4-1.0); TOTAL PROTEIN 7.6 g/dL (6.7-8.2)
--- NOTE | 2019-04-26 20:00 | Ultrasound Report ---
Reason: Ruq pain Procedure Date: 04/26/2019 Accession Number: [id number] / [id number] Procedure: US - Abdomen Limited CPT Code: FULL RESULT: EXAM: ABDOMEN ULTRASOUND LIMITED, RUQ EXAM DATE: 04/26/2019 07:18 PM. CLINICAL HISTORY: Ruq pain. COMPARISON: ABDOMEN LIMITED 12/13/2017 3:14 PM. TECHNIQUE: Real-time scanning was performed with static images obtained. FINDINGS: Limited study secondary to patient positioning. LIVER: Top normal in size and heterogeneous in echogenicity. No suspicious hepatic masses identified. Lower surface is not well evaluated. PORTAL VEIN: Patent with hepatopedal flow. BILIARY: The common bile duct is normal in caliber for patient age. No intrahepatic biliary dilatation. GALLBLADDER: Sludge in gallbladder with nonspecific gallbladder wall thickening and pericholecystic fluid. Patient was medicated therefore unable to obtain a sonographic Jones's sign. RIGHT KIDNEY: Atrophic without hydronephrosis, large shadowing stones or perinephric fluid collections. PANCREAS: The visualized portions of the pancreas are unremarkable. IVC: The visualized portions of the inferior vena cava are unremarkable. AORTA: The visualized aorta is normal in caliber. ASCITES: No significant free fluid. Measurements: Liver: 16.6 cm Gallbladder wall thickness: 4 mm Common bile duct: 6 mm Right kidney: 8.2 cm IMPRESSION: 1. Sludge in the gallbladder with nonspecific gallbladder wall thickening and pericholecystic fluid. Patient was medicated therefore unable to obtain a sonographic Jones's sign. Findings are nonspecific and can be seen in cholecystitis, portal hypertension, congestive heart failure and other etiologies. Recommend clinical correlation. If persistent concern for cholecystitis, recommend HIDA scan. 2. The liver is heterogeneous in echotexture. The liver surface was not well evaluated. Correlate clinically for chronic liver disease. RADIA
[2019-04-26] MEDS ORDERED: ONDANSETRON 4 MG/2 ML VIAL IVP PRN (20:11)
--- NOTE | 2019-04-26 20:59 | HISTORY & PHYSICAL EXAMINATION ---
Chief Complaint - Chief Complaint Chief Complaint: epigastric pain History of Present Illness - Admitted From Admitted From:: [facility] - History Obtained From Records Reviewed: yes History obtained from: patient - History of Present Illness HPI Comment/Other: Patient seen and examined on 04/26/19 around 21:00pm Patient is an 88 y/o female who presented to the ED with complain of epigastric pain which start this morning when she was having breakfast. She reports vomiting about 4 times today. She did not have any problems with dinner last night. She has had similar symptoms in the past and it was managed medically. She denied chest pain, dyspnea, fever or chills. She has chronic back pain. She rated her pain 10/10 at onset and currently 7/10. In the ED she was found to have a lipase of 1600. Abdominal US showed sludge in gallbladder, nonspecific gallbladder wall thickening and pericholecystic fluid. As a result she was presented for admission for further management. History - Past Medical History Cardiovascular: reports: Hypertension Respiratory: reports: None Neuro: reports: None Endocrine/Autoimmune: reports: HyPOthyroidism GI: reports: GERD BANKRUPTCY LEGAL ASSISTANT: reports: None : reports: Incontinence HEENT: reports: Chronic hearing loss Psych: reports: None Musculoskeletal: reports: Osteoarthritis Derm: reports: Other MRSA Hx?: No - Past Surgical History General: reports: Colonoscopy Ortho: reports: Other (Back Surgery) /BANKRUPTCY LEGAL ASSISTANT: reports: Hysterectomy HEENT: reports: Other - Family & Social History Family History: Mother: Hypertension, Father: CVA/TIA, Sister: Cancer (breast), Brother: COPD/Emphysema, CVA/TIA Living Situation: Alone Social History Notes: She lives alone in an apartment. She has a caregiver who comes twice a week for 2 hours each time. An older sister lives in [place]. She denies alcohol, tobacco products or illicit drug. - Substance History Use: Uses substance without health or social issues: NONE - POLST Patient has POLST: No POLST Status: Full Code Meds/Allgy - Home Medications Home Medications: Ambulatory Orders Medication Instructions Recorded Confirmed Multivitamin [Multivitamins] 1 each PO DAILY 12/13/17 12/14/17 Omeprazole [PriLOSEC] 20 mg PO DAILY 12/13/17 12/13/17 Calcium Carbonate/Vitamin D3 1 each PO BID 12/14/17 12/14/17 [Calcium 600 + Vit D 400 Tablet] Hydrochlorothiazide 12.5 mg PO DAILY 12/14/17 12/14/17 Levothyroxine [Synthroid] 100 mcg PO QDAC 12/14/17 12/14/17 Lisinopril 20 mg PO BID 12/14/17 12/14/17 - Allergies Allergies/Adverse Reactions: Allergies Allergy/AdvReac Type Severity Reaction Status Date / Time No Known Drug Allergies Allergy Verified 04/26/19 17:19 Review of Systems - Constitutional Constitutional: denies: Fatigue, Fever - Eyes Eyes: denies: Blurred vision, Vision loss, Dipolpia - Ears, Nose & Throat Ears, Nose & Throat: denies: Vertigo, Sore throat - Cardiovascular Cariovascular: denies: Irregular heart rate, Chest pain, Edema, Syncope, Exertional dyspnea - Respiratory Respiratory: denies: Cough, Sputum production, Wheezing, SOB at rest, SOB with exertion - Gastrointestinal Gastrointestinal: reports: Abdominal pain, Nausea, Vomiting, Reflux/heartburn, Poor appetite. denies: Abdominal distention, Constipation, Diarrhea, Coffee grounds emesis - Genitourinary Genitourinary: denies: Dysuria, Frequency, Urgency, Hematuria, Incontinence, Flank pain - Musculoskeletal Musculoskeletal: reports: Back pain (chronic). denies: Muscle pain - Integumentary Integumentary: denies: Rash, Pruritis, Lesions, Dryness - Neurological Neurological: denies: General weakness, Headache, Dizziness - Psychiatric Psychiatric: denies: Depression, Anxiety - Endocrine Endocrine: denies: Polyuria, Polydypsia - Hematologic/Lymphatic Hematologic/Lymphatic: denies: Anemia, Bruising, Petechiae Prior Level of Functionality: She lives alone in an apartment. She has a caregiver who comes twice a week for 2 hours each time. An older sister lives in [place] She denies alcohol, tobacco products or illicit drug. Exam - Vital Signs Vital Signs: Vital Signs x48h Temp Pulse Resp BP Pulse Ox 04/26/19 20:46 90 18 148/57 H 96 04/26/19 19:20 37 C 91 20 183/63 H 99 04/26/19 18:40 76 22 147/80 H 99 04/26/19 17:14 36.7 C 80 18 217/94 H 97 - Physical Exam General Appearance: positive: Alert, Moderate distress. negative: Lethargic Eyes Bilateral: positive: Normal inspection, PERRL, EOMI ENT: positive: ENT inspection nml, Pharynx nml, No signs of dehydration Neck: positive: Nml inspection, No JVD, Trachea midline Respiratory: positive: Chest non-tender, No respiratory distress. negative: Wheezes, Rales, Rhonchi Cardiovascular: positive: Regular rate & rhythm Abdomen: positive: No distention, Tenderness. negative: Guarding, Rebound Back: positive: Nml inspection Skin: positive: Color nml, No rash, Warm, Dry Extremities: positive: Non-tender, Full ROM, Nml appearance Neurologic/Psychiatric: positive: Oriented x3, CN's nml (2-12), Motor nml, Sensation nml, Mood/affect nml Conclusion/Plan - Problem List (1) Gallstone pancreatitis Conclusion/Plan: NPO. IV Hydration with normal saline Pain management with dilaudid IV. General Surgery (Dr Popeye Gonzales) aware of patient and consulted (2) Leukocytosis Conclusion/Plan: Likely reactive. Will monitor (3) Hypertension Conclusion/Plan: Likely exacerbated by pain Will address pain with dilaudid On lisinopril and HCTZ at home. Will continue (4) Hypothyroidism Conclusion/Plan: Resume synthroid once verified (5) GERD (gastroesophageal reflux disease) Conclusion/Plan: Protonix ordered (6) Osteoporosis Conclusion/Plan: Patient on Calcium/Vit D supplement at home (7) Chronic back pain Conclusion/Plan: Pain management prn (8) Hypokalemia Conclusion/Plan: Will replace and recheck in the am - Lab Results Fish Bones: 04/26/19 17:42 04/26/19 17:42 Core Measures - Anticipated LOS I expect patient to be DC'd or transferred within 96 hours.: Yes - DVT/VTE - Prophylaxis VTE/DVT Device ordered at admit?: Yes
[2019-04-26] MEDS ORDERED: SODIUM CHLORIDE 0.9% 1,000 ML IV SCH (21:00)
[2019-04-26] MEDS: POTASSIUM CHLOR 10 MEQ/100 ML 10 MEQ/100 ML BAG IV SCH (22:09)
[2019-04-26] MEDS: SODIUM CHLORIDE FLUSH 0.9% 10 ML SYRINGE IVP PRN (22:11)
[2019-04-26] MEDS: HYDROmorphone 0.5 MG/0.5 ML SYRINGE IVP PRN (22:43)
[2019-04-27] MEDS: POTASSIUM CHLOR 10 MEQ/100 ML 10 MEQ/100 ML BAG IV SCH ×2 (00:43→01:43)
[2019-04-27] MEDS: HYDROmorphone 0.5 MG/0.5 ML SYRINGE IVP PRN ×7 (02:11→23:56)
[2019-04-27 05:53] LABS: BASOPHILS % (AUTO) 0.3 %; EOSINOPHILS % (AUTO) 1.6 %; HGB - HEMOGLOBIN 13.7 g/dL (12.0-16.0); MEAN CORPUSCULAR HEMOGLOBIN 28.5 pg (27.0-31.0); MEAN CORPUSCULAR VOLUME 86.5 fL (81.0-99.0); MONOCYTES % (AUTO) 3.7 %; NEUTROPHILS % (AUTO) 91.7 %; PLT - PLATELET COUNT 245 10^3/uL (130-450); RED CELL DISTRIBUTION WIDTH 13.7 % (12.0-15.0); WHITE BLOOD COUNT 13.6 x10^3/uL (4.8-10.8)
[2019-04-27 05:54] LABS: ABNORMAL LYMPHS % (MANUAL) 0 %
[2019-04-27] MEDS: PANTOPRAZOLE 40 MG VIAL IVP SCH (05:59)
[2019-04-27] MEDS: SODIUM CHLORIDE FLUSH 0.9% 10 ML SYRINGE IVP PRN (05:59)
[2019-04-27 06:10] LABS: BAND NEUTROPHILS % (MANUAL) 18 %; DIFFERENTIAL COMMENT MANUAL DIFFERENTIAL; LYMPHOCYTES # (MANUAL) 0.3 10^3/uL (1.5-3.5); LYMPHOCYTES % (MANUAL) 2 %; MONOCYTES # (MANUAL) 0.4 10^3/uL (0.0-1.0); PLATELET ESTIMATE, MANUAL NORMAL (130-450,000) (NORMAL); RBC MORPHOLOGY (MULTIPLE) NORMAL APPEARANCE (NORMAL)
[2019-04-27 06:20] LABS: ALBUMIN 3.4 g/dL (3.2-5.5); ALBUMIN/GLOBULIN RATIO 1.1 (1.0-2.2); BILIRUBIN,TOTAL 1.7 mg/dL (0.2-1.0); CALCIUM 8.9 mg/dL (8.5-10.3); CREATININE 1.3 mg/dL (0.4-1.0); TOTAL PROTEIN 6.4 g/dL (6.7-8.2)
[2019-04-27] MEDS ORDERED: MIN OIL/DIMETHICON/COCONUT OIL 92 GM TUBE TOP PRN (06:24)
[2019-04-27] MEDS: SODIUM CHLORIDE FLUSH 0.9% 10 ML SYRINGE IVP SCH ×3 (06:54→18:29)
[2019-04-27] MEDS: SODIUM CHLORIDE 0.9% 1,000 ML IV SCH ×2 (08:22→17:05)
[2019-04-27] MEDS: POLYETHYLENE GLYCOL 3350 17 GM PACKET PO SCH (08:23)
--- NOTE | 2019-04-27 08:52 | CONSULTATION NOTE ---
Referring Provider Name of Referring Provider:: Dr. Ibarra Consult Date: 04/27/19 Chief Complaint - Chief Complaint Chief Complaint: abd pain, N,V History of Present Illness - Admitted From Admitted From:: ER - History Obtained From Records Reviewed: yes History obtained from: pt, records Exam Limitations: none - History of Present Illness HPI Comment/Other: 88 yo female in her usual state of health until yesterday morning around 0700 when she noted the sudden onset of severe generalized upper abdominal pain, nausea and vomiting, which prompted her to seek evaluation in the ER yesterday and to be subsequently admitted. The pain is described as severe, constant, waxing and waning in severity but never completely resolving, initially 10/10, now somewhat improved to 7/10 and partially responsive to narcotic analgesics. The N/V have resolved over night but the pain has persisted. No change in bowel habits, melena, hematochezia, hematemesis or recent unexplained wt loss. She reports similar sx in 11/2017 where records show a brief admission for RUQ pain and findings c/w mild subacute acalculous cholecystitis. US showed sludge in the gallbladder but no stones. Her LFT's and lipase were nl at that time. She was treated medically with resolution of her sx and no recurrence of abdominal pain until now. She reports that she feels "blah" with fatty foods and so avoids them. Neg FH gallbladder disease or GI tumors. She has a hx of GERD well controlled with PPI therapy. She has a hx of a colonoscopy in 2006 showing several small polyps. No hx hepatitis or jaundice. Evaluation in the ER yesterday was notable for a WBC of 18K, lipase of 1600, bili of 1.8, moderate transaminitis (150,119), nl alk phos, and an abd US showing sludge in gallbladder, mild gb wall thickening, nl bile ducts, small amount of pericholecystic fluid. Today lipase is down to 890, WBC down to 13k, but lft's essentially unchanged. Surgical consultation was requested. History - Past Medical History Cardiovascular: reports: Hypertension Respiratory: reports: None Neuro: reports: None Endocrine/Autoimmune: reports: HyPOthyroidism GI: reports: GERD, Colon polyps (2006) CARPENTER MINE: reports: None : reports: Incontinence HEENT: reports: Chronic hearing loss Psych: reports: None Musculoskeletal: reports: Osteoarthritis, Chronic back pain Derm: reports: Other MRSA Hx?: No - Past Surgical History General: reports: Colonoscopy (2006) Ortho: reports: Other (Back Surgery) /CARPENTER MINE: reports: Hysterectomy (for benign disease) HEENT: reports: Other - Family & Social History Family History: Mother: Hypertension, Father: CVA/TIA, Sister: Cancer (breast), Brother: COPD/Emphysema, CVA/TIA Family History Comment/Other: neg for CRC or gb disease Living Situation: Alone Social History Notes: She lives alone in an apartment. She has a caregiver who comes twice a week for 2 hours each time. An older sister lives in [place]. She denies alcohol, tobacco products or illicit drug. - Substance History Use: Uses substance without health or social issues: NONE - POLST Patient has POLST: No POLST Status: Full Code Meds/Allgy - Home Medications Home Medications: Ambulatory Orders Medication Instructions Recorded Confirmed Multivitamin [Multivitamins] 1 each PO DAILY 12/13/17 12/14/17 Omeprazole [PriLOSEC] 20 mg PO DAILY 12/13/17 12/13/17 Calcium Carbonate/Vitamin D3 1 each PO BID 12/14/17 12/14/17 [Calcium 600 + Vit D 400 Tablet] Hydrochlorothiazide 12.5 mg PO DAILY 12/14/17 12/14/17 Levothyroxine [Synthroid] 100 mcg PO QDAC 12/14/17 12/14/17 Lisinopril 20 mg PO BID 12/14/17 12/14/17 - Allergies Allergies/Adverse Reactions: Allergies Allergy/AdvReac Type Severity Reaction Status Date / Time No Known Drug Allergies Allergy Verified 04/26/19 17:19 Review of Systems - Constitutional Constitutional: denies: Weight gain, Weight loss - Gastrointestinal Gastrointestinal: reports: Abdominal pain, Nausea, Vomiting, Reflux/heartburn. denies: Constipation, Diarrhea, Change in bowel habits, Rectal bleeding, Black stools, Bloody stools, Mariusz blood emesis, Coffee grounds emesis - Musculoskeletal Musculoskeletal: reports: Back pain - Hematologic/Lymphatic Hematologic/Lymphatic: denies: Bruising, Blood clots, Bleeding tendencies - All Other Systems All Other Systems: reports: Reviewed and negative (or covered in HPI/PMH) Exam - Vital Signs Reviewed Vital Signs: Yes Vital Signs: Vital Signs x48h Temp Pulse Resp BP Pulse Ox 04/27/19 05:00 36.9 C 79 16 146/62 H 94 04/27/19 01:00 37.4 C 80 16 123/49 L 93 - Physical Exam General Appearance: positive: Alert, Moderate distress Eyes Bilateral: positive: Normal inspection, Conjunctivae nml, No scleral icterus ENT: positive: ENT inspection nml, Dry mucous membranes Neck: positive: Nml inspection, Thyroid nml, No JVD, Trachea midline. negative: Lymphadenopathy (R), Lymphadenopathy (L) Respiratory: positive: Chest non-tender, No respiratory distress, Breath sounds nml Cardiovascular: positive: Regular rate & rhythm, No murmur, No gallop Abdomen: positive: Nml bowel sounds, Tenderness (diffuse upper abdominal tenderness with guarding) Back: positive: Nml inspection Skin: positive: Color nml, No rash, Warm, Dry. negative: Cyanosis Extremities: positive: No pedal edema. negative: Calf tenderness Neurologic/Psychiatric: positive: Oriented x3 Conclusion/Plan - Diagnosis Diagnosis: Acute biliary pancreatitis in an otherwise reasonably healthy 88 yo female. Currently she appears to be slowly improving. Persistent abnormal lfts concerning for persistent choledocholithiasis/partial biliary obstruction. Worsening renal function, possibly due to pre-renal azotemia. - Plan Plan: Agree with present management, including bowel rest, IVF, analgesics, PPI therapy. Would obtain MRCP for further evaluation. If common duct stones are demonstrated, then pt would probably benefit from preop ERCP, otherwise I would recommend cholecystectomy this admission following resolution of this episode in order to prevent a recurrence. Pt is agreeable with this plan; she definitely wants to have surgery if it will prevent another episode like this. Will follow. Thanks, - Lab Results Lab results reviewed: Yes Fish Bones: 04/27/19 05:25 04/27/19 05:25 Other Lab Results: See HPI - Diagnostic Imaging Results Diagnostic Imaging Results: positive: Final report reviewed Diagnostic Imaging Results Comments: See HPI
[2019-04-27] MEDS: NYSTATIN POWDER 15 GM TOP SCH ×2 (10:41→20:15)
[2019-04-27] MEDS: LIDOCAINE PATCH 5% TOP PRN (10:42)
[2019-04-27 13:04] LABS: BASOPHILS % (AUTO) 0.3 %; EOSINOPHILS # (AUTO) 0.3 10^3/uL (0.0-0.7); EOSINOPHILS % (AUTO) 2.1 %; LYMPHOCYTES # (AUTO) 0.3 10^3/uL (1.5-3.5); LYMPHOCYTES % (AUTO) 2.4 %; MEAN CORPUSCULAR HEMOGLOBIN 27.7 pg (27.0-31.0); MEAN CORPUSCULAR HGB CONC 32.1 g/dL (32.0-36.0); MEAN CORPUSCULAR VOLUME 86.4 fL (81.0-99.0); MEAN PLATELET VOLUME 10.3 fL (7.9-10.8); MONOCYTES # (AUTO) 0.5 10^3/uL (0.0-1.0); NEUTROPHILS # (AUTO) 10.7 10^3/uL (1.5-6.6); NEUTROPHILS % (AUTO) 90.7 %; PLT - PLATELET COUNT 228 10^3/uL (130-450); RED BLOOD COUNT 4.69 10^6/uL (4.20-5.40); RED CELL DISTRIBUTION WIDTH 14.1 % (12.0-15.0); WHITE BLOOD COUNT 11.7 x10^3/uL (4.8-10.8)
[2019-04-27] MEDS: oxyCODONE 5 MG TABLET PO PRN ×2 (13:10→20:52)
[2019-04-27 13:29] LABS: RBC MORPHOLOGY (MULTIPLE) 1+ ANISOCYTOSIS (NORMAL)
--- NOTE | 2019-04-27 14:45 | CT Report ---
Reason: abdominal pain, cholecystitis?, pancreatitis Procedure Date: 04/27/2019 Accession Number: [id number] / [id number] Procedure: CT - Abdomen/Pelvis WO CPT Code: FULL RESULT: EXAM: CT ABDOMEN AND PELVIS EXAM DATE: 04/27/2019 01:20 PM. CLINICAL HISTORY: Abdominal pain, cholecystitis?, pancreatitis. COMPARISONS: None. TECHNIQUE: Routine helical CT imaging was performed through the abdomen and pelvis. IV contrast: No. Enteric contrast: No. Reconstructions: Coronal and sagittal. In accordance with CT protocol optimization, one or more of the following dose reduction techniques were utilized for this exam: automated exposure control, adjustment of mA and/or KV based on patient size, or use of iterative reconstructive technique. FINDINGS: Lung Bases: There is bilateral patchy peripheral basilar density favoring dependent atelectasis. There is a very small right pleural effusion. Liver: The liver size is normal. The capsule of the liver has a mildly lobulated contour. Gallbladder/Bile Ducts: The gallbladder wall appears thickened. The gallbladder appears enlarged. There is pericholecystic fat stranding and edema. No calcified gallstone is visualized. Spleen: Normal in size. Pancreas: Grossly normal in size and contour. Adrenal Glands: Normal. Kidneys: Normal. No masses or hydronephrosis. Peritoneal Cavity/Bowel: There is a small volume of free fluid in the right upper quadrant of the abdomen. There is no mechanical bowel obstruction. The appendix is well visualized and normal. The cecum is located in the anterior right mid abdomen. Pelvic Organs: Urinary bladder appears unremarkable. There is a complex cystic structure in the pelvis located superior to the urinary bladder. This structure overall measures 91 x 90 x 81 mm. There is a single septation. A portion of the structure measures near water density at 8 HU. There is a portion which is more dense at 24 HU which could be complex fluid or solid. Ovaries not definitely identified separately. Uterus not visualized. Vasculature: There is moderate atherosclerotic vascular calcification and tortuosity without aneurysm. Bones: There are findings of previous laminectomy at L2 and L3. Other: None. IMPRESSION: 1. Dilated gallbladder with thickened wall and surrounding inflammation/edema suspicious for acute cholecystitis. 2. Small volume of intraperitoneal free fluid. 3. Lobulated liver contour suspicious for chronic liver disease and liver fibrosis. 4. Complex cyst or cystic mass in pelvis measuring 91 x 90 x 81 mm. Possibly arising from ovary, although ovaries not definitely identified. Differential including benign versus malignant cystic ovarian neoplasm versus complex omental cyst. RADIA
[2019-04-27] MEDS ORDERED: SODIUM CHLORIDE 0.9% 500 ML IV ONE (15:05)
[2019-04-27] MEDS: PIPERACILLIN/TAZOBACTAM 3.375 GM in SODIUM CHLORIDE 0.9% MINIBAG 100 ML IV SCH ×2 (16:19→23:51)
--- NOTE | 2019-04-27 16:35 | PROVIDER PROGRESS NOTE ---
Subjective - Prog Note Date Prog Note Date: 04/27/19 - Subjective Pt reports feeling: Improved Subjective: pt feel slight better for abdominal pain. she report epigastric pain in the palpitation. she denies nausea, vomiting at hospital. she denies fever, chill, chest pain. Current Medications - Current Medications Current Medications: Active Medications Hydromorphone HCl (Dilaudid Inj Syringe) 0.5 mg IVP Q2H PRN PRN Reason: Pain 8 to 10 Last Admin: 04/27/19 12:52 Dose: 0.5 mg Sodium Chloride (Normal Saline 0.9%) 1,000 mls @ 125 mls/hr IV .Q8H [facility] Last Admin: 04/27/19 08:22 Dose: 125 mls/hr Sodium Chloride (Normal Saline 0.9%) 500 mls @ 250 mls/hr IV ONCE ONE Stop: 04/27/19 17:04 Piperacillin Sod/Tazobactam (Sod 3.375 gm/ Sodium Chloride) 100 mls @ 200 mls/hr IV Q8H [facility] Last Admin: 04/27/19 16:19 Dose: 200 mls/hr Levothyroxine Sodium (Synthroid) 100 mcg PO QDAC [facility] Lidocaine (Lidoderm Patch) 1 patch TOP DAILY PRN PRN Reason: PAIN Last Admin: 04/27/19 10:42 Dose: 1 patch Lisinopril (Zestril) 20 mg PO BID [facility] Mineral Oil (Cavilon) 1 applic TOP PRN PRN PRN Reason: Skin Care Last Admin: 04/27/19 08:24 Dose: 1 applic Nystatin (Nystop) 1 applic TOP BID [facility] Last Admin: 04/27/19 10:41 Dose: 1 applic Ondansetron HCl (Zofran Inj) 4 mg IVP Q6HR PRN PRN Reason: Nausea / Vomiting Oxycodone HCl (Roxicodone) 5 mg PO Q4HR PRN PRN Reason: PAIN Last Admin: 04/27/19 13:10 Dose: 5 mg Pantoprazole Sodium (Protonix) 40 mg IVP QDAC [facility] Last Admin: 04/27/19 05:59 Dose: 40 mg Polyethylene Glycol (Miralax) 17 gm PO DAILY [facility] Last Admin: 04/27/19 08:23 Dose: Not Given Sodium Chloride (Normal Saline Flush 0.9%) 10 ml IVP PRN PRN PRN Reason: NEEDED PER PROVIDER ORDERS Last Admin: 04/27/19 05:59 Dose: 10 ml Sodium Chloride (Normal Saline Flush 0.9%) 10 ml IVP 0100,0900,1700 GIANA Last Admin: 04/27/19 08:23 Dose: Not Given Multivitamin [Multivitamins] 1 each PO DAILY 12/13/17 Omeprazole [PriLOSEC] 20 mg PO DAILY 12/13/17 Calcium Carbonate/Vitamin D3 [Calcium 600 + Vit D 400 Tablet] 1 tab PO BID 12/14/17 Hydrochlorothiazide 12.5 mg PO DAILY 12/14/17 Levothyroxine [Synthroid] 100 mcg PO QDAC 12/14/17 Lisinopril 20 mg PO BID 12/14/17 Objective - Vital Signs/Intake & Output Reviewed Vital Signs: Yes Vital Signs: Vital Signs x48h Temp Pulse Pulse Resp BP Pulse Ox 04/27/19 15:55 36.9 C 91 18 148/62 H 93 04/27/19 12:15 36.8 C 88 18 138/58 H 93 04/27/19 08:48 36.3 C L 85 18 136/50 H 93 04/27/19 08:44 36.9 C 79 16 95 Intake & Output: Intake & Output 04/24/19 04/25/19 04/26/19 04/27/19 23:59 23:59 23:59 23:59 Intake Total 1176.667 Output Total 200 Balance -200 1176.667 - Objective General Appearance: positive: No acute distress, Alert. negative: Lethargic Eyes Bilateral: positive: Normal inspection, PERRL, No lid inflammation, Conjunctivae nml ENT: positive: ENT inspection nml, Pharynx nml, No signs of dehydration. negative: Purulent nasal drainage, Pharyngeal erythema, Oral lesions Respiratory: positive: Chest non-tender, No respiratory distress, Breath sounds nml. negative: Wheezes, Rales, Rhonchi Cardiovascular: positive: Regular rate & rhythm, No murmur, No gallop. negative: Irregularly irregular, Extrasystoles, Tachycardia, Bradycardia, JVD present, Systolic murmur, Diastolic murmur Peripheral Pulses: 2+ Radial (R), 2+ Radial (L), 2+ Dorsalis pedis (R), 2+ Dorsalis pedis (L) Abdomen: positive: Non-tender, No organomegaly, Nml bowel sounds, No distention. negative: Tenderness, Guarding, Rebound Back: positive: Nml inspection. negative: CVA tenderness (R), CVA tenderness (L) Skin: positive: Color nml, No rash, Warm, Dry. negative: Cyanosis, Diaphoresis, Pallor Extremities: positive: Non-tender, Nml appearance. negative: Calf tenderness, Joint swelling, Steve's sign/cords Neurologic/Psychiatric: positive: Oriented x3, Sensation nml, Mood/affect nml. negative: Weakness, Sensory loss, Facial droop, Slurred/abnml speech, Depressed mood/affect - Lab Results Fish Bones: 04/27/19 12:41 04/27/19 05:25 Other Labs: Lab Results x24hrs 04/27/19 04/27/19 04/27/19 Range/Units 12:41 12:41 09:48 WBC 11.7 H (4.8-10.8) x10^3/uL RBC 4.69 (4.20-5.40) 10^6/uL Hgb 13.0 (12.0-16.0) g/dL Hct 40.5 (37.0-47.0) % MCV 86.4 (81.0-99.0) fL MCH 27.7 (27.0-31.0) pg MCHC 32.1 (32.0-36.0) g/dL RDW 14.1 (12.0-15.0) % Plt Count 228 (130-450) 10^3/uL MPV 10.3 (7.9-10.8) fL Neut # (Auto) 10.7 H (1.5-6.6) 10^3/uL Lymph # (Auto) 0.3 L (1.5-3.5) 10^3/uL [place] # (Auto) 0.5 (0.0-1.0) 10^3/uL Eos # (Auto) 0.3 (0.0-0.7) 10^3/uL Baso # (Auto) 0.0 (0.0-0.1) 10^3/uL Absolute Nucleated RBC 0.00 x10^3/uL Total Counted Band Neuts % (Manual) (0 - 10) % Abnorm Lymph % (Manual) % Nucleated RBC % 0.0 /100WBC Neutrophils # (Manual) (1.5-6.6) 10^3/uL Lymphocytes # (Manual) (1.5-3.5) 10^3/uL Monocytes # (Manual) (0.0-1.0) 10^3/uL Eosinophils # (Manual) (0-0.7) 10^3/uL Basophils # (Manual) (0-0.1) 10^3/uL Differential Comment Manual Slide Review Indicated Platelet Estimate (NORMAL) RBC Morph Micro Appear 1+ ANISOCYTOSIS (NORMAL) Whole Blood INR 1.1 (0.8-1.2) Sodium (135-145) mmol/L Potassium (3.5-5.0) mmol/L Chloride (101-111) mmol/L Carbon Dioxide (21-32) mmol/L Anion Gap (6-13) BUN (6-20) mg/dL Creatinine (0.4-1.0) mg/dL Estimated GFR (MDRD) (>89) Glucose (70-100) mg/dL Lactic Acid 1.4 (0.5-2.2) mmol/L Calcium (8.5-10.3) mg/dL Total Bilirubin (0.2-1.0) mg/dL AST (10-42) IU/L ALT (10-60) IU/L Alkaline Phosphatase (42-121) IU/L Troponin I High Sens (2.3-14.8) pg/mL Total Protein (6.7-8.2) g/dL Albumin (3.2-5.5) g/dL Globulin (2.1-4.2) g/dL Albumin/Globulin Ratio (1.0-2.2) Lipase (22-51) U/L 04/27/19 04/27/19 04/26/19 Range/Units 05:25 05:25 17:42 WBC 13.6 H (4.8-10.8) x10^3/uL RBC 4.80 (4.20-5.40) 10^6/uL Hgb 13.7 (12.0-16.0) g/dL Hct 41.5 (37.0-47.0) % MCV 86.5 (81.0-99.0) fL MCH 28.5 (27.0-31.0) pg MCHC 33.0 (32.0-36.0) g/dL RDW 13.7 (12.0-15.0) % Plt Count 245 (130-450) 10^3/uL MPV 10.0 (7.9-10.8) fL Neut # (Auto) Not Reportable (1.5-6.6) 10^3/uL Lymph # (Auto) Not Reportable (1.5-3.5) 10^3/uL [place] # (Auto) Not Reportable (0.0-1.0) 10^3/uL Eos # (Auto) Not Reportable (0.0-0.7) 10^3/uL Baso # (Auto) Not Reportable (0.0-0.1) 10^3/uL Absolute Nucleated RBC Not Reportable x10^3/uL Total Counted 100 Band Neuts % (Manual) 18 H (0 - 10) % Abnorm Lymph % (Manual) 0 % Nucleated RBC % Not Reportable /100WBC Neutrophils # (Manual) 12.9 H (1.5-6.6) 10^3/uL Lymphocytes # (Manual) 0.3 L (1.5-3.5) 10^3/uL Monocytes # (Manual) 0.4 (0.0-1.0) 10^3/uL Eosinophils # (Manual) 0.0 (0-0.7) 10^3/uL Basophils # (Manual) 0.0 (0-0.1) 10^3/uL Differential Comment MANUAL DIFFERENTIAL Manual Slide Review Platelet Estimate NORMAL (130-450,000) (NORMAL) RBC Morph Micro Appear NORMAL APPEARANCE (NORMAL) Whole Blood INR (0.8-1.2) Sodium 137 (135-145) mmol/L Potassium 4.5 (3.5-5.0) mmol/L Chloride 100 L (101-111) mmol/L Carbon Dioxide 27 (21-32) mmol/L Anion Gap 10.0 (6-13) BUN 26 H (6-20) mg/dL Creatinine 1.3 H (0.4-1.0) mg/dL Estimated GFR (MDRD) 39 L (>89) Glucose 123 H (70-100) mg/dL Lactic Acid (0.5-2.2) mmol/L Calcium 8.9 (8.5-10.3) mg/dL Total Bilirubin 1.7 H (0.2-1.0) mg/dL AST 220 H (10-42) IU/L ALT 214 H (10-60) IU/L Alkaline Phosphatase 60 (42-121) IU/L Troponin I High Sens 5.2 (2.3-14.8) pg/mL Total Protein 6.4 L (6.7-8.2) g/dL Albumin 3.4 (3.2-5.5) g/dL Globulin 3.0 (2.1-4.2) g/dL Albumin/Globulin Ratio 1.1 (1.0-2.2) Lipase 890 H (22-51) U/L 04/26/19 04/26/19 Range/Units 17:42 17:42 WBC 16.2 H (4.8-10.8) x10^3/uL RBC 4.90 (4.20-5.40) 10^6/uL Hgb 13.8 (12.0-16.0) g/dL Hct 42.6 (37.0-47.0) % MCV 86.9 (81.0-99.0) fL MCH 28.2 (27.0-31.0) pg MCHC 32.4 (32.0-36.0) g/dL RDW 13.4 (12.0-15.0) % Plt Count 246 (130-450) 10^3/uL MPV 9.9 (7.9-10.8) fL Neut # (Auto) 15.2 H (1.5-6.6) 10^3/uL Lymph # (Auto) 0.2 L (1.5-3.5) 10^3/uL [place] # (Auto) 0.6 (0.0-1.0) 10^3/uL Eos # (Auto) 0.0 (0.0-0.7) 10^3/uL Baso # (Auto) 0.1 (0.0-0.1) 10^3/uL Absolute Nucleated RBC 0.00 x10^3/uL Total Counted Band Neuts % (Manual) (0 - 10) % Abnorm Lymph % (Manual) % Nucleated RBC % 0.0 /100WBC Neutrophils # (Manual) (1.5-6.6) 10^3/uL Lymphocytes # (Manual) (1.5-3.5) 10^3/uL Monocytes # (Manual) (0.0-1.0) 10^3/uL Eosinophils # (Manual) (0-0.7) 10^3/uL Basophils # (Manual) (0-0.1) 10^3/uL Differential Comment Manual Slide Review Platelet Estimate (NORMAL) RBC Morph Micro Appear (NORMAL) Whole Blood INR (0.8-1.2) Sodium 138 (135-145) mmol/L Potassium 3.4 L (3.5-5.0) mmol/L Chloride 98 L (101-111) mmol/L Carbon Dioxide 27 (21-32) mmol/L Anion Gap 13.0 (6-13) BUN 16 (6-20) mg/dL Creatinine 0.7 (0.4-1.0) mg/dL Estimated GFR (MDRD) 79 L (>89) Glucose 157 H (70-100) mg/dL Lactic Acid (0.5-2.2) mmol/L Calcium 10.0 (8.5-10.3) mg/dL Total Bilirubin 1.8 H (0.2-1.0) mg/dL AST 154 H (10-42) IU/L ALT 119 H (10-60) IU/L Alkaline Phosphatase 65 (42-121) IU/L Troponin I High Sens (2.3-14.8) pg/mL Total Protein 7.6 (6.7-8.2) g/dL Albumin 4.3 (3.2-5.5) g/dL Globulin 3.3 (2.1-4.2) g/dL Albumin/Globulin Ratio 1.3 (1.0-2.2) Lipase 1600 H (22-51) U/L ABX Reporting Has patient been on IV antibiotics over the past 48 hours?: Yes Assessment/Plan - Problem List (1) Pancreatitis Impression: 04/27 Lipase is down to 890 from 1600. pt report her abdominal pain is slight better. pt can not have MRCP because of metal in her ear. CT reveals suspicion of acute cholecystitis max sims consulted with surgeon, followup continue IVF of NS continue pain control continue lab monitor Lipase (2)acute kidney injury 04/27 creatinine increase to 1.3 from 0.7. it is likely from pt's nausea and vomiting, pt's hypovolemia Bolus of NS of 500ml, increase IVF to 125 cc/h of NS continue lab monitor (3) Hypertension Conclusion/Plan: stable, continue home meds, Lisinopril and HCTZ vital monitor (4) Hypothyroidism Conclusion/Plan: will check TSH, and Resume synthroid (5) GERD (gastroesophageal reflux disease) Conclusion/Plan: Protonix ordered (6) Osteoporosis Conclusion/Plan: Patient on Calcium/Vit D supplement at home (7) Chronic back pain Conclusion/Plan: Pain management prn (8) Hypokalemia Conclusion/Plan: 04/27 resolved Will replace and recheck in the am
[2019-04-27] MEDS: LISINOPRIL 20 MG TABLET PO SCH (20:14)
[2019-04-28] MEDS: SODIUM CHLORIDE FLUSH 0.9% 10 ML SYRINGE IVP SCH ×3 (00:02→16:12)
[2019-04-28] MEDS: SODIUM CHLORIDE 0.9% 1,000 ML IV SCH (01:07)
[2019-04-28 05:00] LABS: BASOPHILS % (AUTO) 0.3 %; EOSINOPHILS % (AUTO) 1.3 %; HGB - HEMOGLOBIN 12.3 g/dL (12.0-16.0); LYMPHOCYTES % (AUTO) 2.6 %; MEAN CORPUSCULAR HEMOGLOBIN 27.8 pg (27.0-31.0); MEAN CORPUSCULAR HGB CONC 31.1 g/dL (32.0-36.0); MEAN CORPUSCULAR VOLUME 89.4 fL (81.0-99.0); MONOCYTES % (AUTO) 2.8 %; NEUTROPHILS % (AUTO) 92.7 %; PLT - PLATELET COUNT 179 10^3/uL (130-450); RED BLOOD COUNT 4.43 10^6/uL (4.20-5.40); RED CELL DISTRIBUTION WIDTH 14.4 % (12.0-15.0); WHITE BLOOD COUNT 9.6 x10^3/uL (4.8-10.8)
[2019-04-28 05:09] LABS: ABNORMAL LYMPHS % (MANUAL) 0 %
[2019-04-28 05:17] LABS: ALBUMIN 2.8 g/dL (3.2-5.5); BILIRUBIN,TOTAL 1.4 mg/dL (0.2-1.0); CALCIUM 8.1 mg/dL (8.5-10.3); TOTAL PROTEIN 5.7 g/dL (6.7-8.2)
[2019-04-28 05:30] LABS: BAND NEUTROPHILS % (MANUAL) 28 %; DIFFERENTIAL COMMENT MANUAL DIFFERENTIAL; LYMPHOCYTES # (MANUAL) 0.5 10^3/uL (1.5-3.5); LYMPHOCYTES % (MANUAL) 5 %; MONOCYTES # (MANUAL) 0.2 10^3/uL (0.0-1.0); PLATELET ESTIMATE, MANUAL NORMAL (130-450,000) (NORMAL); RBC MORPHOLOGY (MULTIPLE) NORMAL APPEARANCE (NORMAL)
[2019-04-28] MEDS: oxyCODONE 5 MG TABLET PO PRN ×3 (05:30→20:10)
[2019-04-28] MEDS: PANTOPRAZOLE 40 MG VIAL IVP SCH (06:39)
[2019-04-28] MEDS: SODIUM CHLORIDE FLUSH 0.9% 10 ML SYRINGE IVP PRN (06:39)
[2019-04-28] MEDS ORDERED: LEVOTHYROXINE 100 MCG TABLET PO SCH (07:00)
--- NOTE | 2019-04-28 07:35 | PROVIDER PROGRESS NOTE ---
Assessment/Plan - Problem List (1) Gallstone pancreatitis Assessment/Plan: Clinically slowly improving. Renal function improved. Persistent abn lft's concerning for choledocholithiasis despite neg CT scan; (unable to do MRCP due to metal in pt). Decreased O2 sat and pulm exam concerning for pneumonitis and /or atelectasis and/or pulm edema. Plan: obtain CXR, ow continue present management; will need to decide whether to do ERCP before lap michelle if lft's fail to improve over next few days. - Current Meds Current Meds: Current Medications Generic Name Dose Route Start Last Admin Trade Name Freq PRN Reason Stop Dose Admin Hydromorphone HCl 0.5 mg 04/26/19 20:11 04/27/19 23:56 Dilaudid Inj Syringe IVP 0.5 mg Q2H PRN Administration Pain 8 to 10 Sodium Chloride 1,000 mls @ 125 mls/hr 04/27/19 07:38 04/28/19 01:07 Normal Saline 0.9% IV 125 mls/hr .Q8H GIANA Administration Piperacillin Sod/Tazobactam 100 mls @ 200 mls/hr 04/27/19 16:00 04/28/19 01:08 Sod 3.375 gm/ Sodium Chloride IV Infused Q8H GIANA Infusion Levothyroxine Sodium 100 mcg 04/28/19 07:00 04/28/19 06:39 Synthroid PO 100 mcg QDAC GIANA Administration Lidocaine 1 patch 04/27/19 08:41 04/27/19 10:42 Lidoderm Patch TOP 1 patch DAILY PRN Administration PAIN Lisinopril 20 mg 04/27/19 21:00 04/27/19 20:14 Zestril PO 20 mg BID GIANA Administration Mineral Oil 1 applic 04/27/19 06:24 04/27/19 08:24 Cavilon TOP 1 applic PRN PRN Administration Skin Care Nystatin 1 applic 04/27/19 09:00 04/27/19 20:15 Nystop TOP 1 applic BID GIANA Administration Oxycodone HCl 5 mg 04/27/19 12:06 04/28/19 05:30 Roxicodone PO 5 mg Q4HR PRN Administration PAIN Pantoprazole Sodium 40 mg 04/27/19 07:00 04/28/19 06:39 Protonix IVP 40 mg QDAC GIANA Administration Polyethylene Glycol 17 gm 04/27/19 09:00 04/27/19 08:23 Miralax PO Not Given DAILY GIANA Sodium Chloride 10 ml 04/26/19 20:11 04/28/19 06:39 Normal Saline Flush 0.9% IVP 10 ml PRN PRN Administration NEEDED PER PROVIDER ORDERS Sodium Chloride 10 ml 04/27/19 01:00 04/28/19 00:02 Normal Saline Flush 0.9% IVP Not Given 0100,0900,1700 GIANA - Lab Result Lab results reviewed: Yes Fish Bone Diagrams: 04/28/19 04:40 04/28/19 04:40 - Diagnostic Imaging Results Diagnostic Imaging Results: Final report reviewed Diagnostic Imaging Results Comments: CT findings c/w acute cholecystitis; no biliary ductal dilatation; pancreas appears nl. - Additional Planning Condition/Complexity: Improved My Orders: My Active Orders 04/28/19 07:28 Chest 2 View X-Ray [XR] Routine 04/28/19 09:00 CA 125 [IAI] DAILY CEA - CARCINOEMBRYONIC ANTIGEN [IAI] DAILY Plan Discussed with:: Patient, Other (hospitalist) Time Spent: 31-60 minutes Subjective - Subjective Patient Reports: Feeling Better, Abdominal Pain (down to 4/10; no nausea/vo miting; no flatus/stool; getting hungry) Objective Vital Signs: Vital Signs - 24 hr 04/27/19 04/27/19 04/27/19 08:44 08:48 12:15 Temperature 36.9 C 36.3 C L 36.8 C Heart Rate 79 Heart Rate [ 85 88 Brachial] Respiratory 16 18 18 Rate Blood Pressure 136/50 H 138/58 H [Left Brachial artery] O2 Saturation 95 93 93 04/27/19 04/27/19 04/28/19 15:55 21:00 00:10 Temperature 36.9 C 37.0 C 37.1 C Heart Rate Heart Rate [ 91 92 105 H Brachial] Respiratory 18 18 18 Rate Blood Pressure 148/62 H 148/67 H 155/70 H [Left Brachial artery] O2 Saturation 93 91 L 88 L 04/28/19 04/28/19 01:11 04:48 Temperature 37.1 C Heart Rate Heart Rate [ 93 Brachial] Respiratory 18 Rate Blood Pressure 148/72 H [Left Brachial artery] O2 Saturation 93 97 Oxygen O2 Source Nasal cannula I&O (Last 24 Hrs): Intake and Output Totals x24h 04/26/19 04/27/19 04/28/19 23:59 23:59 23:59 Intake Total 2900.000 1100 Output Total 200 100 150 Balance -200 2800.000 950 General: Alert, Oriented x3, Cooperative, Mild distress HEENT: Mucous membr. moist/pink Neck: No JVD Neuro: Alert Cardiovascular: Regular rate, Normal S1, Normal S2, No murmurs Respiratory: Chest non-tender, No respiratory distress, Wheezes (faint basilar rales and exp wheezes; diminished breath sounds in bases), Rales Abdomen: Normal bowel sounds, Soft, No hepatospenomegaly, No masses, Other (mild upper abd tenderness, no guarding/rebound/peritoneal signs) Extremities: No edema, No tenderness/swelling - Results Results: Laboratory Results WBC 9.6 x10^3/uL (4.8-10.8) 04/28/19 04:40 RBC 4.43 10^6/uL (4.20-5.40) 04/28/19 04:40 Hgb 12.3 g/dL (12.0-16.0) 04/28/19 04:40 Hct 39.6 % (37.0-47.0) 04/28/19 04:40 MCV 89.4 fL (81.0-99.0) 04/28/19 04:40 MCH 27.8 pg (27.0-31.0) 04/28/19 04:40 MCHC 31.1 g/dL (32.0-36.0) L 04/28/19 04:40 RDW 14.4 % (12.0-15.0) 04/28/19 04:40 Plt Count 179 10^3/uL (130-450) 04/28/19 04:40 MPV 10.0 fL (7.9-10.8) 04/28/19 04:40 Neut # (Auto) Not Reportable 04/28/19 04:40 Lymph # (Auto) Not Reportable 04/28/19 04:40 [place] # (Auto) Not Reportable 04/28/19 04:40 Eos # (Auto) Not Reportable 04/28/19 04:40 Baso # (Auto) Not Reportable 04/28/19 04:40 Absolute Nucleated RBC Not Reportable 04/28/19 04:40 Total Counted 100 04/28/19 04:40 Band Neuts % (Manual) 28 % (0-10) H 04/28/19 04:40 Abnorm Lymph % (Manual) 0 % 04/28/19 04:40 Nucleated RBC % Not Reportable 04/28/19 04:40 Neutrophils # (Manual) 8.9 10^3/uL (1.5-6.6) H 04/28/19 04:40 Lymphocytes # (Manual) 0.5 10^3/uL (1.5-3.5) L 04/28/19 04:40 Monocytes # (Manual) 0.2 10^3/uL (0.0-1.0) 04/28/19 04:40 Eosinophils # (Manual) 0.0 10^3/uL (0-0.7) 04/28/19 04:40 Basophils # (Manual) 0.0 10^3/uL (0-0.1) 04/28/19 04:40 Differential Comment MANUAL DIFFERENTIAL 04/28/19 04:40 Manual Slide Review Indicated 04/27/19 12:41 Platelet Estimate NORMAL (130-450,000) (NORMAL) 04/28/19 04:40 RBC Morph Micro Appear NORMAL APPEARANCE (NORMAL) 04/28/19 04:40 Whole Blood INR 1.1 (0.8-1.2) 04/27/19 09:48 Sodium 138 mmol/L (135-145) 04/28/19 04:40 Potassium 3.9 mmol/L (3.5-5.0) 04/28/19 04:40 Chloride 105 mmol/L (101-111) 04/28/19 04:40 Carbon Dioxide 24 mmol/L (21-32) 04/28/19 04:40 Anion Gap 9.0 (6-13) 04/28/19 04:40 BUN 32 mg/dL (6-20) H 04/28/19 04:40 Creatinine 1.0 mg/dL (0.4-1.0) 04/28/19 04:40 Estimated GFR (MDRD) 53 (>89) L 04/28/19 04:40 Glucose 95 mg/dL (70-100) 04/28/19 04:40 Lactic Acid 1.4 mmol/L (0.5-2.2) 04/27/19 12:41 Calcium 8.1 mg/dL (8.5-10.3) L 04/28/19 04:40 Total Bilirubin 1.4 mg/dL (0.2-1.0) H 04/28/19 04:40 AST 221 IU/L (10-42) H 04/28/19 04:40 ALT 284 IU/L (10-60) H 04/28/19 04:40 Alkaline Phosphatase 78 IU/L (42-121) 04/28/19 04:40 Troponin I High Sens 5.2 pg/mL (2.3-14.8) 04/26/19 17:42 Total Protein 5.7 g/dL (6.7-8.2) L 04/28/19 04:40 Albumin 2.8 g/dL (3.2-5.5) L 04/28/19 04:40 Globulin 2.9 g/dL (2.1-4.2) 04/28/19 04:40 Albumin/Globulin Ratio 1.0 (1.0-2.2) 04/28/19 04:40 Lipase 217 U/L (22-51) H 04/28/19 04:40 TSH 0.20 uIU/mL (0.34-5.60) L 04/28/19 04:40 ABX Reporting Has patient been on IV antibiotics over the past 48 hours?: No
[2019-04-28] MEDS: hydroCHLOROthiazide 12.5 MG CAPSULE PO SCH (08:21)
[2019-04-28] MEDS: POLYETHYLENE GLYCOL 3350 17 GM PACKET PO SCH (08:21)
[2019-04-28] MEDS: PIPERACILLIN/TAZOBACTAM 3.375 GM in SODIUM CHLORIDE 0.9% MINIBAG 100 ML IV SCH ×2 (08:21→15:58)
[2019-04-28] MEDS: NYSTATIN POWDER 15 GM TOP SCH ×2 (08:21→20:13)
[2019-04-28] MEDS: LISINOPRIL 20 MG TABLET PO SCH ×2 (08:21→20:11)
--- NOTE | 2019-04-28 09:19 | XRAY Report ---
Reason: decreased 02 sat, eval for pneumonia, CHF Procedure Date: 04/28/2019 Accession Number: [id number] / [id number] Procedure: XR - Chest 2 View X-Ray CPT Code: 33128 FULL RESULT: EXAM: CHEST RADIOGRAPHY EXAM DATE: 04/28/2019 08:58 AM. CLINICAL HISTORY: Decreased 02 sat, eval for pneumonia, CHF. COMPARISON: CHEST 2 VIEW 12/13/2017 1:05 PM. TECHNIQUE: 2 views. FINDINGS IMPRESSION: 1. Interval new diffuse peripheral pulmonary opacities and new bilateral small pleural effusions with new mild cardiomegaly, suggesting new mild pulmonary edema versus nonspecific infiltrate. 2. No pneumothorax. 3. Moderate-sized hiatal hernia again noted, similar to the prior exam. RADIA
[2019-04-28] MEDS ORDERED: SODIUM CHLORIDE 0.9% 1,000 ML IV SCH (10:36)
[2019-04-28] MEDS ORDERED: D5.45NS W/20 MEQ KCL 1,000 ML IV SCH (11:00)
[2019-04-28] MEDS: D5.45NS W/20 MEQ KCL 1,000 ML IV SCH (15:55)
--- NOTE | 2019-04-28 16:07 | PROVIDER PROGRESS NOTE ---
Subjective - Prog Note Date Prog Note Date: 04/28/19 - Subjective Pt reports feeling: Improved Subjective: pt report her abdominal pain improved but when she deeply breath she still felt pain at right upper quadrant. she denies nausea or vomiting or fever. pt need 2 liter of O2 now. pt also present some shortness of breath and wheezing. pt denies fever, chill, and chest pain Current Medications - Current Medications Current Medications: Active Medications Hydrochlorothiazide (Hydrodiuril) 12.5 mg PO DAILY [facility] Last Admin: 04/28/19 08:21 Dose: 12.5 mg Hydromorphone HCl (Dilaudid Inj Syringe) 0.5 mg IVP Q2H PRN PRN Reason: Pain 8 to 10 Last Admin: 04/27/19 23:56 Dose: 0.5 mg Piperacillin Sod/Tazobactam (Sod 3.375 gm/ Sodium Chloride) 100 mls @ 200 mls/hr IV Q8H [facility] Last Admin: 04/28/19 15:58 Dose: 200 mls/hr Potassium Chloride/Dextrose/Sod Cl (D5.45ns W/20 Meq Kcl) 1,000 mls @ 75 mls/hr IV .[id number] [facility] Last Admin: 04/28/19 15:55 Dose: 75 mls/hr Levothyroxine Sodium (Synthroid) 88 mcg PO QDAC [facility] Lidocaine (Lidoderm Patch) 1 patch TOP DAILY PRN PRN Reason: PAIN Last Admin: 04/27/19 10:42 Dose: 1 patch Lisinopril (Zestril) 20 mg PO BID [facility] Last Admin: 04/28/19 08:21 Dose: 20 mg Mineral Oil (Cavilon) 1 applic TOP PRN PRN PRN Reason: Skin Care Last Admin: 04/27/19 08:24 Dose: 1 applic Nystatin (Nystop) 1 applic TOP BID [facility] Last Admin: 04/28/19 08:21 Dose: 1 applic Ondansetron HCl (Zofran Inj) 4 mg IVP Q6HR PRN PRN Reason: Nausea / Vomiting Oxycodone HCl (Roxicodone) 5 mg PO Q4HR PRN PRN Reason: PAIN Last Admin: 04/28/19 11:24 Dose: 5 mg Pantoprazole Sodium (Protonix) 40 mg IVP QDAC [facility] Last Admin: 04/28/19 06:39 Dose: 40 mg Polyethylene Glycol (Miralax) 17 gm PO DAILY [facility] Last Admin: 04/28/19 08:21 Dose: 17 gm Sodium Chloride (Normal Saline Flush 0.9%) 10 ml IVP PRN PRN PRN Reason: NEEDED PER PROVIDER ORDERS Last Admin: 04/28/19 06:39 Dose: 10 ml Sodium Chloride (Normal Saline Flush 0.9%) 10 ml IVP 0100,0900,1700 [facility] Last Admin: 04/28/19 16:12 Dose: Not Given Multivitamin [Multivitamins] 1 each PO DAILY 12/13/17 Omeprazole [PriLOSEC] 20 mg PO DAILY 12/13/17 Calcium Carbonate/Vitamin D3 [Calcium 600 + Vit D 400 Tablet] 1 tab PO BID 12/14/17 Hydrochlorothiazide 12.5 mg PO DAILY 12/14/17 Levothyroxine [Synthroid] 100 mcg PO QDAC 12/14/17 Lisinopril 20 mg PO BID 12/14/17 Objective - Vital Signs/Intake & Output Reviewed Vital Signs: Yes Vital Signs: Vital Signs x48h Temp Pulse Resp BP Pulse Ox 04/28/19 11:56 36.5 C 93 18 135/79 H 92 04/28/19 08:40 36.8 C 93 18 141/64 H 97 Intake & Output: Intake & Output 04/25/19 04/26/19 04/27/19 04/28/19 23:59 23:59 23:59 23:59 Intake Total 2900.000 2200.000 Output Total 200 100 600 Balance -200 2800.000 1600.000 - Objective General Appearance: positive: No acute distress, Alert. negative: Lethargic Eyes Bilateral: positive: Normal inspection, PERRL, No lid inflammation, Conjunctivae nml ENT: positive: ENT inspection nml, Pharynx nml, No signs of dehydration. negative: Purulent nasal drainage, Pharyngeal erythema, Oral lesions Neck: positive: Nml inspection, Thyroid nml, No JVD, Trachea midline. negative: Thyromegaly, Lymphadenopathy (R), Lymphadenopathy (L), Stiff neck, Swelling/bruising, Tracheal deviation Respiratory: positive: Chest non-tender, Wheezes. negative: Breath sounds nml, Rales, Rhonchi Cardiovascular: positive: Regular rate & rhythm, No murmur, No gallop. negative: Irregularly irregular, Extrasystoles, Tachycardia, Bradycardia, JVD present, Systolic murmur, Diastolic murmur Peripheral Pulses: 2+ Radial (R), 2+ Radial (L), 2+ Dorsalis pedis (R), 2+ Dorsalis pedis (L) Abdomen: positive: Non-tender, No organomegaly, Nml bowel sounds, No distention. negative: Tenderness, Guarding, Rebound Back: positive: Nml inspection. negative: CVA tenderness (R), CVA tenderness (L) Skin: positive: Color nml, No rash, Warm, Dry. negative: Cyanosis, Diaphoresis, Pallor Extremities: positive: Non-tender, Full ROM, Nml appearance. negative: Calf te nderness, Joint swelling, Steve's sign/cords Neurologic/Psychiatric: positive: Oriented x3, Sensation nml, Mood/affect nml. negative: Weakness, Sensory loss, Facial droop, Slurred/abnml speech, Depressed mood/affect - Lab Results Fish Bones: 04/28/19 04:40 04/28/19 04:40 Other Labs: Lab Results x24hrs 04/28/19 04/28/19 04/28/19 Range/Units 09:00 09:00 04:40 WBC (4.8-10.8) x10^3/uL RBC (4.20-5.40) 10^6/uL Hgb (12.0-16.0) g/dL Hct (37.0-47.0) % MCV (81.0-99.0) fL MCH (27.0-31.0) pg MCHC (32.0-36.0) g/dL RDW (12.0-15.0) % Plt Count (130-450) 10^3/uL MPV (7.9-10.8) fL Neut # (Auto) Lymph # (Auto) [place] # (Auto) Eos # (Auto) Baso # (Auto) Absolute Nucleated RBC Total Counted Band Neuts % (Manual) (0 - 10) % Abnorm Lymph % (Manual) % Nucleated RBC % Neutrophils # (Manual) (1.5-6.6) 10^3/uL Lymphocytes # (Manual) (1.5-3.5) 10^3/uL Monocytes # (Manual) (0.0-1.0) 10^3/uL Eosinophils # (Manual) (0-0.7) 10^3/uL Basophils # (Manual) (0-0.1) 10^3/uL Differential Comment Platelet Estimate (NORMAL) RBC Morph Micro Appear (NORMAL) Sodium (135-145) mmol/L Potassium (3.5-5.0) mmol/L Chloride (101-111) mmol/L Carbon Dioxide (21-32) mmol/L Anion Gap (6-13) BUN (6-20) mg/dL Creatinine (0.4-1.0) mg/dL Estimated GFR (MDRD) (>89) Glucose (70-100) mg/dL Calcium (8.5-10.3) mg/dL Total Bilirubin (0.2-1.0) mg/dL AST (10-42) IU/L ALT (10-60) IU/L Alkaline Phosphatase (42-121) IU/L Total Protein (6.7-8.2) g/dL Albumin (3.2-5.5) g/dL Globulin (2.1-4.2) g/dL Albumin/Globulin Ratio (1.0-2.2) Lipase (22-51) U/L Carcinoembryonic Ag 1.5 ng/mL CA 125 Antigen 12.1 (0.0-35.0) U/mL TSH 0.20 L (0.34-5.60) uIU/mL 04/28/19 04/28/19 Range/Units 04:40 04:40 WBC 9.6 (4.8-10.8) x10^3/uL RBC 4.43 (4.20-5.40) 10^6/uL Hgb 12.3 (12.0-16.0) g/dL Hct 39.6 (37.0-47.0) % MCV 89.4 (81.0-99.0) fL MCH 27.8 (27.0-31.0) pg MCHC 31.1 L (32.0-36.0) g/dL RDW 14.4 (12.0-15.0) % Plt Count 179 (130-450) 10^3/uL MPV 10.0 (7.9-10.8) fL Neut # (Auto) Not Reportable Lymph # (Auto) Not Reportable [place] # (Auto) Not Reportable Eos # (Auto) Not Reportable Baso # (Auto) Not Reportable Absolute Nucleated RBC Not Reportable Total Counted 100 Band Neuts % (Manual) 28 H (0 - 10) % Abnorm Lymph % (Manual) 0 % Nucleated RBC % Not Reportable Neutrophils # (Manual) 8.9 H (1.5-6.6) 10^3/uL Lymphocytes # (Manual) 0.5 L (1.5-3.5) 10^3/uL Monocytes # (Manual) 0.2 (0.0-1.0) 10^3/uL Eosinophils # (Manual) 0.0 (0-0.7) 10^3/uL Basophils # (Manual) 0.0 (0-0.1) 10^3/uL Differential Comment MANUAL DIFFERENTIAL Platelet Estimate NORMAL (130-450,000) (NORMAL) RBC Morph Micro Appear NORMAL APPEARANCE (NORMAL) Sodium 138 (135-145) mmol/L Potassium 3.9 (3.5-5.0) mmol/L Chloride 105 (101-111) mmol/L Carbon Dioxide 24 (21-32) mmol/L Anion Gap 9.0 (6-13) BUN 32 H (6-20) mg/dL Creatinine 1.0 (0.4-1.0) mg/dL Estimated GFR (MDRD) 53 L (>89) Glucose 95 (70-100) mg/dL Calcium 8.1 L (8.5-10.3) mg/dL Total Bilirubin 1.4 H (0.2-1.0) mg/dL AST 221 H (10-42) IU/L ALT 284 H (10-60) IU/L Alkaline Phosphatase 78 (42-121) IU/L Total Protein 5.7 L (6.7-8.2) g/dL Albumin 2.8 L (3.2-5.5) g/dL Globulin 2.9 (2.1-4.2) g/dL Albumin/Globulin Ratio 1.0 (1.0-2.2) Lipase 217 H (22-51) U/L Carcinoembryonic Ag ng/mL CA 125 Antigen (0.0-35.0) U/mL TSH (0.34-5.60) uIU/mL ABX Reporting Has patient been on IV antibiotics over the past 48 hours?: Yes Assessment/Plan - Problem List (1) Pancreatitis Impression: 04/28 improved. Lipase is down to 217. pt report her abdominal pain is better continue gently IVF with D5 lab monitor 04/27 Lipase is down to 890 from 1600. pt report her abdominal pain is slight better. pt can not have MRCP because of metal in her ear. CT reveals suspicion of acute cholecystitis add zosyn consulted with surgeon, followup continue IVF of NS continue pain control continue lab monitor Lipase (2) acute cholecystitis 04/28 CT reveals acute cholecystiti, and present right upper quadrant pain continue Zosyn continue pain control NPO with D5 1/2 NS (3)acute kidney injury 04/28 improved, creatinine is 1.o today. continue gently hydration, lab monitor 04/27 creatinine increase to 1.3 from 0.7. it is likely from pt's nausea and vomiting, pt's hypovolemia Bolus of NS of 500ml, increase IVF to 125 cc/h of NS continue lab monitor (4) Hypertension Conclusion/Plan: stable, continue home meds, Lisinopril and HCTZ vital monitor (5) Hypothyroidism Conclusion/Plan: 04/28 TSH is 0.2 lower, decrease synthroid to 88mcg from 100 mcg advise followup PCP management will check TSH, and Resume synthroid (6) GERD (gastroesophageal reflux disease) Conclusion/Plan: Protonix ordered (7) Osteoporosis Conclusion/Plan: Patient on Calcium/Vit D supplement at home (8) Chronic back pain Conclusion/Plan: Pain management prn (9) Hypokalemia Conclusion/Plan: 04/27 resolved (10) pelvic mass 04/28 CT reveal pelvic mass, 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
--- NOTE | 2019-04-28 23:01 | Ultrasound Report ---
Reason: characterize complex cystic mass Procedure Date: 04/28/2019 Accession Number: [id number] / [id number] Procedure: US - Pelvic w/Transvaginal CPT Code: FULL RESULT: EXAM: PELVIC ULTRASOUND EXAM DATE: 04/28/2019 09:30 PM. CLINICAL HISTORY: Complex cystic mass seen on recent abdomen/pelvis CT. Patient presents for further characterization. COMPARISON: ABDOMEN/PELVIS W/O 04/27/2019 1:19 PM. TECHNIQUE: Realtime transabdominal pelvic scan performed to identify the uterus and adnexa and as an overview of other pelvic structures, followed by transvaginal scan to provide greater detail of the uterus and adnexa, with static image documentation. FINDINGS: Limited evaluation secondary to patient positioning and cooperation. Uterus: Hysterectomy. Ovaries: Not reliably identified. Adnexa: Redemonstration of a cystic mass with thick septation in the right adnexa measuring approximately 9 x 5.9 x 8.6 cm. There appears to be vascular flow within the septation. The mass abuts and is inseparable from the dome of the urinary bladder. Free Fluid: None. IMPRESSION: 1. Status post hysterectomy. 2. The ovaries are not reliably identified. 3. Redemonstration of a cystic mass with thick septation in the right adnexa measuring approximately 9 x 5.9 x 8.6 cm. There appears to be vascular flow within the septation. The mass abuts and is inseparable from the dome of the urinary bladder. Both benign Shabnam etiology should be considered. Recommend MRI female pelvis for further evaluation. RADIA
[2019-04-29] MEDS: SODIUM CHLORIDE FLUSH 0.9% 10 ML SYRINGE IVP SCH ×3 (00:01→15:55)
[2019-04-29] MEDS: PIPERACILLIN/TAZOBACTAM 3.375 GM in SODIUM CHLORIDE 0.9% MINIBAG 100 ML IV SCH ×3 (00:06→15:55)
[2019-04-29] MEDS ORDERED: METOPROLOL 5 MG/5 ML VIAL IVP STA (00:10)
[2019-04-29] MEDS ORDERED: SODIUM CHLORIDE FLUSH 0.9% 10 ML SYRINGE ONE (00:23)
[2019-04-29] MEDS ORDERED: diltiaZEM INJ 5 MG/ML VIAL IVP PRN (00:23)
[2019-04-29] MEDS: D5.45NS W/20 MEQ KCL 1,000 ML IV SCH (00:42)
[2019-04-29 05:54] LABS: BASOPHILS % (AUTO) 0.5 %; EOSINOPHILS % (AUTO) 1.1 %; HGB - HEMOGLOBIN 11.2 g/dL (12.0-16.0); LYMPHOCYTES % (AUTO) 2.4 %; MEAN CORPUSCULAR HEMOGLOBIN 28.1 pg (27.0-31.0); MEAN CORPUSCULAR HGB CONC 32.2 g/dL (32.0-36.0); MEAN CORPUSCULAR VOLUME 87.2 fL (81.0-99.0); MEAN PLATELET VOLUME 10.4 fL (7.9-10.8); MONOCYTES % (AUTO) 4.8 %; NEUTROPHILS % (AUTO) 90.8 %; PLT - PLATELET COUNT 157 10^3/uL (130-450); RED BLOOD COUNT 3.99 10^6/uL (4.20-5.40); RED CELL DISTRIBUTION WIDTH 14.2 % (12.0-15.0); WHITE BLOOD COUNT 9.9 x10^3/uL (4.8-10.8)
[2019-04-29 06:06] LABS: ALBUMIN 2.4 g/dL (3.2-5.5); ALBUMIN/GLOBULIN RATIO 0.9 (1.0-2.2); BILIRUBIN,TOTAL 1.2 mg/dL (0.2-1.0); CALCIUM 8.3 mg/dL (8.5-10.3); CREATININE 0.8 mg/dL (0.4-1.0); TOTAL PROTEIN 5.2 g/dL (6.7-8.2)
[2019-04-29 06:13] LABS: ABNORMAL LYMPHS % (MANUAL) 0 %
[2019-04-29] MEDS: SODIUM CHLORIDE FLUSH 0.9% 10 ML SYRINGE IVP PRN (06:13)
[2019-04-29] MEDS: LEVOTHYROXINE 100 MCG TABLET PO SCH (06:13)
[2019-04-29] MEDS: PANTOPRAZOLE 40 MG VIAL IVP SCH (06:13)
[2019-04-29 06:22] LABS: BAND NEUTROPHILS % (MANUAL) 27 %; DIFFERENTIAL COMMENT MANUAL DIFFERENTIAL; LYMPHOCYTES # (MANUAL) 0.7 10^3/uL (1.5-3.5); LYMPHOCYTES % (MANUAL) 7 %; MONOCYTES # (MANUAL) 0.7 10^3/uL (0.0-1.0); PLATELET ESTIMATE, MANUAL NORMAL (130-450,000) (NORMAL); RBC MORPHOLOGY (MULTIPLE) NORMAL APPEARANCE (NORMAL)
[2019-04-29] MEDS ORDERED: POTASSIUM CHLOR 10 MEQ/100 ML 10 MEQ/100 ML BAG IV ONE (08:24)
[2019-04-29] MEDS: LISINOPRIL 20 MG TABLET PO SCH ×2 (08:29→20:46)
[2019-04-29] MEDS: hydroCHLOROthiazide 12.5 MG CAPSULE PO SCH (08:29)
[2019-04-29] MEDS: NYSTATIN POWDER 15 GM TOP SCH ×2 (08:30→20:51)
[2019-04-29] MEDS: POLYETHYLENE GLYCOL 3350 17 GM PACKET PO SCH (08:30)
--- NOTE | 2019-04-29 09:18 | XRAY Report ---
Reason: sob, pre-operation assessment Procedure Date: 04/29/2019 Accession Number: [id number] / [id number] Procedure: XR - Chest 1 View X-Ray CPT Code: 24687 FULL RESULT: EXAM: CHEST RADIOGRAPHY EXAM DATE: 04/29/2019 08:52 AM. CLINICAL HISTORY: Sob, pre-operation assessment. COMPARISON: CHEST 2 VIEW 04/28/2019 8:33 AM. TECHNIQUE: 1 view. FINDINGS: Lungs/Pleura: Pulmonary vascularity is increased with cephalization of the vessels, interstitial edema. Bibasilar atelectasis. Small bilateral effusions. Decrease all lines. No pneumothorax. Mediastinum: Cardiomegaly. Hiatal hernia. Other: None. IMPRESSION: 1. Cardiomegaly, CHF 2. Bibasilar atelectasis. Small bilateral effusions. RADIA
[2019-04-29] MEDS ORDERED: IPRATROPIUM/ALBUTEROL 3 ML NEB INH PRN (12:02)
[2019-04-29] MEDS ORDERED: ALBUTEROL NEB 2.5 MG/3 ML INH PRN (12:02)
[2019-04-29] MEDS: POTASSIUM CHLOR 10 MEQ/100 ML 10 MEQ/100 ML BAG IV SCH ×2 (12:06→14:02)
--- NOTE | 2019-04-29 12:46 | PROVIDER PROGRESS NOTE ---
Assessment/Plan - Problem List (1) Gallstone pancreatitis Assessment/Plan: clinically markedly improved; Rec: lap michelle if/when medically cleared for surgery. Discussed with pt, son, and hospitalists. (2) Cholecystitis, acute Assessment/Plan: clinically resolving; plan: lap michelle when medically cleared for surgery. (3) CHF (congestive heart failure) Qualifiers: Heart failure type: systolic Heart failure chronicity: acute Qualified Code(s): I50.21 - Acute systolic (congestive) heart failure Assessment/Plan: Onset yesterday; appears somewhat improved today. Rec: ECHO today, further eval/rx per hospitalists; surgery when well compensated/stable. 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 Rec: agree with repairer welding systems and equipment consultation. Unrelated to present illness. Outpt f/u likely will be advised. - Current Meds Current Meds: Current Medications Generic Name Dose Route Start Last Admin Trade Name Freq PRN Reason Stop Dose Admin Hydrochlorothiazide 12.5 mg 04/28/19 09:00 04/29/19 08:29 Hydrodiuril PO 12.5 mg DAILY GIANA Administration Hydromorphone HCl 0.5 mg 04/26/19 20:11 04/27/19 23:56 Dilaudid Inj Syringe IVP 0.5 mg Q2H PRN Administration Pain 8 to 10 Piperacillin Sod/Tazobactam 100 mls @ 200 mls/hr 04/27/19 16:00 04/29/19 09:05 Sod 3.375 gm/ Sodium Chloride IV Infused Q8H GIANA Infusion Potassium Chloride/Dextrose/Sod Cl 1,000 mls @ 75 mls/hr 04/28/19 14:53 04/29/19 00:42 D5.45ns W/20 Meq Kcl IV 75 mls/hr .[id number] GIANA Administration Levothyroxine Sodium 88 mcg 04/29/19 07:00 04/29/19 06:13 Synthroid PO 88 mcg QDAC GIANA Administration Lidocaine 1 patch 04/27/19 08:41 04/27/19 10:42 Lidoderm Patch TOP 1 patch DAILY PRN Administration PAIN Lisinopril 20 mg 04/27/19 21:00 04/29/19 08:29 Zestril PO 20 mg BID GIANA Administration Mineral Oil 1 applic 04/27/19 06:24 04/27/19 08:24 Cavilon TOP 1 applic PRN PRN Administration Skin Care Nystatin 1 applic 04/27/19 09:00 04/29/19 08:30 Nystop TOP 1 applic BID GIANA Administration Oxycodone HCl 5 mg 04/27/19 12:06 04/28/19 20:10 Roxicodone PO 5 mg Q4HR PRN Administration PAIN Pantoprazole Sodium 40 mg 04/27/19 07:00 04/29/19 06:13 Protonix IVP 40 mg QDAC GIANA Administration Polyethylene Glycol 17 gm 04/27/19 09:00 04/29/19 08:30 Miralax PO 17 gm DAILY GIANA Administration Sodium Chloride 10 ml 04/26/19 20:11 04/29/19 06:13 Normal Saline Flush 0.9% IVP 10 ml PRN PRN Administration NEEDED PER PROVIDER ORDERS Sodium Chloride 10 ml 04/27/19 01:00 04/29/19 08:30 Normal Saline Flush 0.9% IVP 10 ml 0100,0900,1700 GIANA Administration - Lab Result Fish Bone Diagrams: 04/29/19 05:25 04/29/19 05:25 - Diagnostic Imaging Results Diagnostic Imaging Results: Final report reviewed, Read independently Diagnostic Imaging Results Comments: CXR today: florid CHF and pulmonary edema with cardiomegaly, perihilar infiltrates, and small bilat pleural effusions. - Additional Planning Condition/Complexity: Improved Plan Discussed with:: Patient, Family, Other (hospitalists) Time Spent: 31-60 minutes Subjective - Subjective Patient Reports: Feeling Better, Abdominal Pain (minimal at present) Objective Vital Signs: Vital Signs - 24 hr 04/28/19 04/28/19 04/28/19 16:23 17:59 19:56 Temperature 36.8 C 37 C Heart Rate [ 92 145 H 89 Brachial] Respiratory 20 20 24 Rate Blood Pressure Blood Pressure 161/89 H [Left Brachial artery] Blood Pressure 151/66 H 183/85 H 152/89 H [Right Brachial artery] O2 Saturation 94 94 96 04/28/19 04/28/19 04/28/19 23:40 23:42 23:44 Temperature 37.4 C Heart Rate [ 158 H 125 H 158 H Brachial] Respiratory 26 H Rate Blood Pressure Blood Pressure 152/112 H 154/124 H 157/112 H [Left Brachial artery] Blood Pressure [Right Brachial artery] O2 Saturation 88 L 95 95 04/28/19 04/29/19 04/29/19 23:53 00:01 00:09 Temperature Heart Rate [ 142 H 149 H 149 H Brachial] Respiratory Rate Blood Pressure Blood Pressure 155/95 H 145/85 H 152/71 H [Left Brachial artery] Blood Pressure [Right Brachial artery] O2 Saturation 96 96 96 04/29/19 04/29/19 04/29/19 00:13 00:14 00:17 Temperature Heart Rate [ 140 H 131 H Brachial] Respiratory Rate Blood Pressure 137/60 H Blood Pressure 137/60 H [Left Brachial artery] Blood Pressure [Right Brachial artery] O2 Saturation 96 96 04/29/19 04/29/19 04/29/19 00:19 00:21 00:22 Temperature Heart Rate [ 139 H 127 H 128 H Brachial] Respiratory Rate Blood Pressure Blood Pressure 125/66 [Left Brachial artery] Blood Pressure [Right Brachial artery] O2 Saturation 96 96 96 04/29/19 04/29/19 04/29/19 00:24 00:25 00:26 Temperature Heart Rate [ 128 H 83 128 H Brachial] Respiratory Rate Blood Pressure Blood Pressure 131/56 H [Left Brachial artery] Blood Pressure [Right Brachial artery] O2 Saturation 96 96 97 04/29/19 04/29/19 04/29/19 00:28 00:35 00:37 Temperature Heart Rate [ 126 H 83 126 H Brachial] Respiratory Rate Blood Pressure Blood Pressure 115/53 L [Left Brachial artery] Blood Pressure [Right Brachial artery] O2 Saturation 96 04/29/19 04/29/19 04/29/19 00:40 00:45 01:00 Temperature Heart Rate [ 87 97 86 Brachial] Respiratory Rate Blood Pressure Blood Pressure 121/52 L 119/53 L [Left Brachial artery] Blood Pressure 115/54 L [Right Brachial artery] O2 Saturation 04/29/19 04/29/19 04/29/19 01:15 03:00 06:00 Temperature 37.1 C Heart Rate [ 86 88 85 Brachial] Respiratory 18 Rate Blood Pressure Blood Pressure 122/53 L 115/66 163/71 H [Left Brachial artery] Blood Pressure [Right Brachial artery] O2 Saturation 96 98 04/29/19 08:34 Temperature 36.9 C Heart Rate [ 85 Brachial] Respiratory 18 Rate Blood Pressure Blood Pressure 154/90 H [Left Brachial artery] Blood Pressure [Right Brachial artery] O2 Saturation 94 Oxygen O2 Source Room air I&O (Last 24 Hrs): Intake and Output Totals x24h 04/27/19 04/28/19 04/29/19 23:59 23:59 23:59 Intake Total 2900.000 3274.996 858.75 Output Total 100 800 400 Balance 2800.000 2474.996 458.75 General: Alert, Oriented x3, Cooperative, Mild distress Neck: Other (neck veins full) Cardiovascular: Regular rate, Normal S1, Normal S2 Respiratory: Chest non-tender, No respiratory distress, Other (diminished breath sounds in bases) Abdomen: Soft, No hepatospenomegaly, No masses, Other (mild RUQ tenderness, no peritoneal signs) Extremities: No edema, No tenderness/swelling Skin: No rashes - Results Results: Laboratory Results WBC 9.9 x10^3/uL (4.8-10.8) 04/29/19 05:25 RBC 3.99 10^6/uL (4.20-5.40) L 04/29/19 05:25 Hgb 11.2 g/dL (12.0-16.0) L 04/29/19 05:25 Hct 34.8 % (37.0-47.0) L 04/29/19 05:25 MCV 87.2 fL (81.0-99.0) 04/29/19 05:25 MCH 28.1 pg (27.0-31.0) 04/29/19 05:25 MCHC 32.2 g/dL (32.0-36.0) 04/29/19 05:25 RDW 14.2 % (12.0-15.0) 04/29/19 05:25 Plt Count 157 10^3/uL (130-450) 04/29/19 05:25 MPV 10.4 fL (7.9-10.8) 04/29/19 05:25 Neut # (Auto) Not Reportable 04/29/19 05:25 Lymph # (Auto) Not Reportable 04/29/19 05:25 [place] # (Auto) Not Reportable 04/29/19 05:25 Eos # (Auto) Not Reportable 04/29/19 05:25 Baso # (Auto) Not Reportable 04/29/19 05:25 Absolute Nucleated RBC Not Reportable 04/29/19 05:25 Total Counted 100 04/29/19 05:25 Band Neuts % (Manual) 27 % (0-10) H 04/29/19 05:25 Abnorm Lymph % (Manual) 0 % 04/29/19 05:25 Nucleated RBC % Not Reportable 04/29/19 05:25 Neutrophils # (Manual) 8.5 10^3/uL (1.5-6.6) H 04/29/19 05:25 Lymphocytes # (Manual) 0.7 10^3/uL (1.5-3.5) L 04/29/19 05:25 Monocytes # (Manual) 0.7 10^3/uL (0.0-1.0) 04/29/19 05:25 Eosinophils # (Manual) 0.0 10^3/uL (0-0.7) 04/29/19 05:25 Basophils # (Manual) 0.0 10^3/uL (0-0.1) 04/29/19 05:25 Differential Comment MANUAL DIFFERENTIAL 04/29/19 05:25 Manual Slide Review Indicated 04/27/19 12:41 Platelet Estimate NORMAL (130-450,000) (NORMAL) 04/29/19 05:25 RBC Morph Micro Appear NORMAL APPEARANCE (NORMAL) 04/29/19 05:25 Whole Blood INR 1.1 (0.8-1.2) 04/27/19 09:48 Sodium 138 mmol/L (135-145) 04/29/19 05:25 Potassium 3.3 mmol/L (3.5-5.0) L 04/29/19 05:25 Chloride 107 mmol/L (101-111) 04/29/19 05:25 Carbon Dioxide 23 mmol/L (21-32) 04/29/19 05:25 Anion Gap 8.0 (6-13) 04/29/19 05:25 BUN 26 mg/dL (6-20) H 04/29/19 05:25 Creatinine 0.8 mg/dL (0.4-1.0) 04/29/19 05:25 Estimated GFR (MDRD) 68 (>89) L 04/29/19 05:25 Glucose 127 mg/dL (70-100) H 04/29/19 05:25 Lactic Acid 1.4 mmol/L (0.5-2.2) 04/27/19 12:41 Calcium 8.3 mg/dL (8.5-10.3) L 04/29/19 05:25 Total Bilirubin 1.2 mg/dL (0.2-1.0) H 04/29/19 05:25 AST 74 IU/L (10-42) H 04/29/19 05:25 ALT 152 IU/L (10-60) H 04/29/19 05:25 Alkaline Phosphatase 128 IU/L (42-121) H 04/29/19 05:25 Troponin I High Sens 5.2 pg/mL (2.3-14.8) 04/26/19 17:42 Total Protein 5.2 g/dL (6.7-8.2) L 04/29/19 05:25 Albumin 2.4 g/dL (3.2-5.5) L 04/29/19 05:25 Globulin 2.8 g/dL (2.1-4.2) 04/29/19 05:25 Albumin/Globulin Ratio 0.9 (1.0-2.2) L 04/29/19 05:25 Lipase 54 U/L (22-51) H 04/29/19 05:25 Carcinoembryonic Ag 1.5 ng/mL 04/28/19 09:00 CA 125 Antigen 12.1 U/mL (0.0-35.0) 04/28/19 09:00 TSH 0.20 uIU/mL (0.34-5.60) L 04/28/19 04:40 ABX Reporting Has patient been on IV antibiotics over the past 48 hours?: Yes
[2019-04-29] MEDS ORDERED: D5.45NS W/20 MEQ KCL 1,000 ML IV SCH (13:30)
[2019-04-29] MEDS ORDERED: hydrALAZINE INJ 20 MG/ML VIAL IVP PRN (13:31)
--- NOTE | 2019-04-29 13:43 | PROVIDER PROGRESS NOTE ---
Subjective - Prog Note Date Prog Note Date: 04/29/19 - Subjective Pt reports feeling: Improved Subjective: pt report she feel better, breath good as she know. she denies fever, chill, shortness of breath, and chest pain. she report her abdominal pain is good controlled. Current Medications - Current Medications Current Medications: Active Medications Hydralazine HCl (Apresoline Inj) 10 mg IVP QID PRN PRN Reason: Hypertensive Emergency Hydrochlorothiazide (Hydrodiuril) 12.5 mg PO DAILY [facility] Last Admin: 04/29/19 08:29 Dose: 12.5 mg Hydromorphone HCl (Dilaudid Inj Syringe) 0.5 mg IVP Q2H PRN PRN Reason: Pain 8 to 10 Last Admin: 04/27/19 23:56 Dose: 0.5 mg Piperacillin Sod/Tazobactam (Sod 3.375 gm/ Sodium Chloride) 100 mls @ 200 mls/hr IV Q8H [facility] Last Infusion: 04/29/19 09:05 Dose: Infused Potassium Chloride/Dextrose/Sod Cl (D5.45ns W/20 Meq Kcl) 1,000 mls @ 40 mls/hr IV .Q25H [facility] Levalbuterol HCl (Xopenex) 1.25 mg INH RTQ4H PRN PRN Reason: Wheezing Levothyroxine Sodium (Synthroid) 88 mcg PO QDAC [facility] Last Admin: 04/29/19 06:13 Dose: 88 mcg Lidocaine (Lidoderm Patch) 1 patch TOP DAILY PRN PRN Reason: PAIN Last Admin: 04/27/19 10:42 Dose: 1 patch Lisinopril (Zestril) 20 mg PO BID [facility] Last Admin: 04/29/19 08:29 Dose: 20 mg Mineral Oil (Cavilon) 1 applic TOP PRN PRN PRN Reason: Skin Care Last Admin: 04/27/19 08:24 Dose: 1 applic Nystatin (Nystop) 1 applic TOP BID [facility] Last Admin: 04/29/19 08:30 Dose: 1 applic Ondansetron HCl (Zofran Inj) 4 mg IVP Q6HR PRN PRN Reason: Nausea / Vomiting Oxycodone HCl (Roxicodone) 5 mg PO Q4HR PRN PRN Reason: PAIN Last Admin: 04/28/19 20:10 Dose: 5 mg Pantoprazole Sodium (Protonix) 40 mg IVP QDAC [facility] Last Admin: 04/29/19 06:13 Dose: 40 mg Polyethylene Glycol (Miralax) 17 gm PO DAILY [facility] Last Admin: 04/29/19 08:30 Dose: 17 gm Sodium Chloride (Normal Saline Flush 0.9%) 10 ml IVP PRN PRN PRN Reason: NEEDED PER PROVIDER ORDERS Last Admin: 04/29/19 06:13 Dose: 10 ml Sodium Chloride (Normal Saline Flush 0.9%) 10 ml IVP 0100,0900,1700 [facility] Last Admin: 04/29/19 08:30 Dose: 10 ml Spironolactone (Aldactone) 25 mg PO DAILY [facility] Multivitamin [Multivitamins] 1 each PO DAILY 12/13/17 Omeprazole [PriLOSEC] 20 mg PO DAILY 12/13/17 Calcium Carbonate/Vitamin D3 [Calcium 600 + Vit D 400 Tablet] 1 tab PO BID 12/14/17 Hydrochlorothiazide 12.5 mg PO DAILY 12/14/17 Levothyroxine [Synthroid] 100 mcg PO QDAC 12/14/17 Lisinopril 20 mg PO BID 12/14/17 Objective - Vital Signs/Intake & Output Reviewed Vital Signs: Yes Vital Signs: Vital Signs x48h Temp Pulse Resp BP BP Pulse Ox 04/29/19 13:00 36.4 C L 80 18 183/85 H 94 04/29/19 08:34 36.9 C 85 18 154/90 H 94 04/29/19 06:00 37.1 C 85 18 163/71 H 98 Intake & Output: Intake & Output 04/26/19 04/27/19 04/28/19 04/29/19 23:59 23:59 23:59 23:59 Intake Total 2900.000 3274.996 858.75 Output Total 200 100 800 400 Balance -200 2800.000 2474.996 458.75 - Objective General Appearance: positive: No acute distress, Alert. negative: Lethargic Eyes Bilateral: positive: Normal inspection, PERRL, No lid inflammation ENT: positive: ENT inspection nml, Pharynx nml, No signs of dehydration. negative: Purulent nasal drainage, Dry mucous membranes Neck: positive: Nml inspection, Thyroid nml, No JVD, Trachea midline. negative: Thyromegaly, Lymphadenopathy (R), Lymphadenopathy (L), Stiff neck, Swelling/bruising, Tracheal deviation Respiratory: positive: Chest non-tender, No respiratory distress, Breath sounds nml. negative: Wheezes, Rales, Rhonchi Cardiovascular: positive: Regular rate & rhythm, No murmur, No gallop. negative: Irregularly irregular, Extrasystoles, Tachycardia, Bradycardia, JVD present, Systolic murmur, Diastolic murmur Peripheral Pulses: 2+ Radial (R), 2+ Radial (L), 2+ Dorsalis pedis (R), 2+ Dorsalis pedis (L) Abdomen: positive: Non-tender, No organomegaly, Nml bowel sounds, No distention. negative: Tenderness, Guarding, Rebound Back: positive: Nml inspection. negative: CVA tenderness (R), CVA tenderness (L) Skin: positive: Color nml, No rash, Warm, Dry. negative: Cyanosis, Diaphoresis, Pallor Extremities: positive: Non-tender, Full ROM, Nml appearance. negative: Calf tenderness, Joint swelling, Steve's sign/cords Neurologic/Psychiatric: positive: Oriented x3, Sensation nml, Mood/affect nml. negative: Weakness, Sensory loss, Facial droop, Slurred/abnml speech, Depressed mood/affect - Lab Results Fish Bones: 04/29/19 05:25 04/29/19 05:25 Other Labs: Lab Results x24hrs 04/29/19 04/29/19 Range/Units 05:25 05:25 WBC 9.9 (4.8-10.8) x10^3/uL RBC 3.99 L (4.20-5.40) 10^6/uL Hgb 11.2 L (12.0-16.0) g/dL Hct 34.8 L (37.0-47.0) % MCV 87.2 (81.0-99.0) fL MCH 28.1 (27.0-31.0) pg MCHC 32.2 (32.0-36.0) g/dL RDW 14.2 (12.0-15.0) % Plt Count 157 (130-450) 10^3/uL MPV 10.4 (7.9-10.8) fL Neut # (Auto) Not Reportable Lymph # (Auto) Not Reportable [place] # (Auto) Not Reportable Eos # (Auto) Not Reportable Baso # (Auto) Not Reportable Absolute Nucleated RBC Not Reportable Total Counted 100 Band Neuts % (Manual) 27 H (0 - 10) % Abnorm Lymph % (Manual) 0 % Nucleated RBC % Not Reportable Neutrophils # (Manual) 8.5 H (1.5-6.6) 10^3/uL Lymphocytes # (Manual) 0.7 L (1.5-3.5) 10^3/uL Monocytes # (Manual) 0.7 (0.0-1.0) 10^3/uL Eosinophils # (Manual) 0.0 (0-0.7) 10^3/uL Basophils # (Manual) 0.0 (0-0.1) 10^3/uL Differential Comment MANUAL DIFFERENTIAL Platelet Estimate NORMAL (130-450,000) (NORMAL) RBC Morph Micro Appear NORMAL APPEARANCE (NORMAL) Sodium 138 (135-145) mmol/L Potassium 3.3 L (3.5-5.0) mmol/L Chloride 107 (101-111) mmol/L Carbon Dioxide 23 (21-32) mmol/L Anion Gap 8.0 (6-13) BUN 26 H (6-20) mg/dL Creatinine 0.8 (0.4-1.0) mg/dL Estimated GFR (MDRD) 68 L (>89) Glucose 127 H (70-100) mg/dL Calcium 8.3 L (8.5-10.3) mg/dL Total Bilirubin 1.2 H (0.2-1.0) mg/dL AST 74 H (10-42) IU/L ALT 152 H (10-60) IU/L Alkaline Phosphatase 128 H (42-121) IU/L Total Protein 5.2 L (6.7-8.2) g/dL Albumin 2.4 L (3.2-5.5) g/dL Globulin 2.8 (2.1-4.2) g/dL Albumin/Globulin Ratio 0.9 L (1.0-2.2) Lipase 54 H (22-51) U/L ABX Reporting Has patient been on IV antibiotics over the past 48 hours?: Yes Assessment/Plan - Problem List (1) Pancreatitis Impression: 04/29 today pt's lipase is down 54. pt report her abdominal pain is good controlled. very gently IVF with 40ml/h of D5, consideration of small pleural effusion in lung continue lab and vital, and tele monitor 04/28 improved. Lipase is down to 217. pt report her abdominal pain is better continue gently IVF with D5 lab monitor 04/27 Lipase is down to 890 from 1600. pt report her abdominal pain is slight better. pt can not have MRCP because of metal in her ear. CT reveals suspicion of acute cholecystitis add zosyn consulted with surgeon, followup continue IVF of NS continue pain control continue lab monitor Lipase (2) acute cholecystitis 04/29 pt report pt's abdominal pain is good controlled. WBC is still in normal arrange. continue antibiotics Zosyn pt might have Epi on tomorrow, continue NPO with gently IVF of D5 Revised cardiac risk index for pre-operative Risk is one points class II risk, 6% 30-day risk of , [place], or cardiac arrest 04/28 CT reveals acute cholecystiti, and present right upper quadrant pain continue Zosyn continue pain control NPO with D5 1/2 NS (3)acute kidney injury 04/29 continue improved lab monitor 04/28 improved, creatinine is 1.o today. continue gently hydration, lab monitor 04/27 creatinine increase to 1.3 from 0.7. it is likely from pt's nausea and vomiting, pt's hypovolemia Bolus of NS of 500ml, increase IVF to 125 cc/h of NS continue lab monitor (4) Hypertension Conclusion/Plan: 04/29 slight elevated BP, add spironolactone, consideration of pulmonary HTN, cor pulmonale, and slight hypokalemia add hydralazine PRN vital monitor stable, continue home meds, Lisinopril and HCTZ vital monitor (5) Hypothyroidism Conclusion/Plan: 04/28 TSH is 0.2 lower, decrease synthroid to 88mcg from 100 mcg advise followup PCP management will check TSH, and Resume synthroid (6) GERD (gastroesophageal reflux disease) Conclusion/Plan: Protonix ordered (7) Osteoporosis Conclusion/Plan: Patient on Calcium/Vit D supplement at home (8) Chronic back pain Conclusion/Plan: Pain management prn (9) Hypokalemia Conclusion/Plan: 04/27 resolved (10) pelvic mass 04/29 US reveal benign rachel etiology should be considered per UA reading. un fortunately pt can not have MRI because of mental piece in her ear. 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 pt's breath is better, no wheezing in whole lobes bilaterally. pt has 94% on room air. CXR reveals bibasilar atelectasis, small bilateral effusion. Adriana Santizo reached with Dr. Gonzales, surgeon, will hold surgeon today decrease IVF from 75mm/h to to 40 ml/h add Spironolactone daily tele and vital monitor supplement of O2 as needed 04/28 pt present some SOB, with wheezing breath sound CXR reveals pulmonary edema, it is likely from fluid overload, but pt's decrease kidney function required hydration reduce IVF from 125cc to 75 cc/h supplement O2 as needed closely monitor pt's respiratory status, (12) pulmonary HTN 04/29 ECHO reveals RVSP 74 mmHG, reveals the result of ECHO with pt and pt's son spironolactone is added for pt (13) Cor pulmonale 04/29 ECHO reveals severe right abnormal high pressure, add spironolactone continue Lisinopril.
[2019-04-29] MEDS: SPIRONOLACTONE 25 MG TABLET PO SCH (14:02)
[2019-04-29] MEDS ORDERED: LEVALBUTEROL 1.25 MG/3 ML NEB INH PRN (15:00)
[2019-04-29] MEDS: HYDROmorphone 0.5 MG/0.5 ML SYRINGE IVP PRN ×2 (15:54→20:47)
[2019-04-29] MEDS: METOPROLOL SUCCINATE 25 MG TABLET PO SCH (18:34)
[2019-04-30] MEDS: PIPERACILLIN/TAZOBACTAM 3.375 GM in SODIUM CHLORIDE 0.9% MINIBAG 100 ML IV SCH ×3 (00:24→16:29)
[2019-04-30] MEDS: SODIUM CHLORIDE FLUSH 0.9% 10 ML SYRINGE IVP SCH ×3 (00:25→16:30)
[2019-04-30] MEDS: SODIUM CHLORIDE FLUSH 0.9% 10 ML SYRINGE IVP PRN (05:39)
[2019-04-30] MEDS: LEVOTHYROXINE 100 MCG TABLET PO SCH (05:39)
[2019-04-30] MEDS: oxyCODONE 5 MG TABLET PO PRN ×3 (05:51→20:38)
[2019-04-30] MEDS: PANTOPRAZOLE 40 MG VIAL IVP SCH (05:55)
[2019-04-30 06:10] LABS: BASOPHILS # (AUTO) 0.1 10^3/uL (0.0-0.1); BASOPHILS % (AUTO) 0.5 %; EOSINOPHILS % (AUTO) 0.2 %; HGB - HEMOGLOBIN 11.9 g/dL (12.0-16.0); LYMPHOCYTES # (AUTO) 0.5 10^3/uL (1.5-3.5); LYMPHOCYTES % (AUTO) 3.6 %; MEAN CORPUSCULAR HEMOGLOBIN 27.9 pg (27.0-31.0); MEAN CORPUSCULAR HGB CONC 32.2 g/dL (32.0-36.0); MEAN CORPUSCULAR VOLUME 86.6 fL (81.0-99.0); MEAN PLATELET VOLUME 10.2 fL (7.9-10.8); MONOCYTES # (AUTO) 0.8 10^3/uL (0.0-1.0); MONOCYTES % (AUTO) 6.1 %; NEUTROPHILS # (AUTO) 11.4 10^3/uL (1.5-6.6); NEUTROPHILS % (AUTO) 88.7 %; PLT - PLATELET COUNT 174 10^3/uL (130-450); RED BLOOD COUNT 4.26 10^6/uL (4.20-5.40); RED CELL DISTRIBUTION WIDTH 14.3 % (12.0-15.0); WHITE BLOOD COUNT 12.9 x10^3/uL (4.8-10.8)
[2019-04-30 06:18] LABS: ALBUMIN 2.5 g/dL (3.2-5.5); ALBUMIN/GLOBULIN RATIO 0.8 (1.0-2.2); BILIRUBIN,TOTAL 1.1 mg/dL (0.2-1.0); CALCIUM 8.8 mg/dL (8.5-10.3); CREATININE 0.8 mg/dL (0.4-1.0); TOTAL PROTEIN 5.8 g/dL (6.7-8.2)
[2019-04-30] MEDS: POLYETHYLENE GLYCOL 3350 17 GM PACKET PO SCH (09:17)
[2019-04-30] MEDS: METOPROLOL SUCCINATE 25 MG TABLET PO SCH (09:18)
[2019-04-30] MEDS: hydroCHLOROthiazide 12.5 MG CAPSULE PO SCH (09:18)
[2019-04-30] MEDS: SPIRONOLACTONE 25 MG TABLET PO SCH (09:18)
[2019-04-30] MEDS: LISINOPRIL 20 MG TABLET PO SCH ×2 (09:18→20:41)
[2019-04-30] MEDS: NYSTATIN POWDER 15 GM TOP SCH ×2 (09:19→20:41)
--- NOTE | 2019-04-30 09:30 | XRAY Report ---
Reason: SOB Procedure Date: 04/30/2019 Accession Number: [id number] / [id number] Procedure: XR - Chest 2 View X-Ray CPT Code: 96993 FULL RESULT: EXAM: CHEST RADIOGRAPHY EXAM DATE: 04/30/2019 08:16 AM. CLINICAL HISTORY: Shortness of breath. COMPARISON: CHEST 1 VIEW 04/29/2019 8:34 AM CHEST 2 VIEW 04/28/2019 8:33 AM. TECHNIQUE: 2 views. FINDINGS: Lungs/Pleura: Mild pulmonary vascular congestion appears decreased compared to prior. There is similar diffuse bilateral interstitial prominence. There are mild streaky opacities at the bilateral lung bases. Small bilateral pleural effusions appear similar to prior. No pneumothorax. Mediastinum: There is stable mild enlargement of the cardiac silhouette. There is mild atherosclerotic calcification of the aortic arch. Other: No acute osseous abnormality. There are multilevel smooth anterior bridging osteophytes of the thoracic spine compatible with diffuse idiopathic skeletal hyperostosis. IMPRESSION: 1. Mild CHF/fluid overload pattern including neurovascular congestion, interstitial edema, stable cardiomegaly, and small bilateral pleural effusions. Pulmonary vascular congestion appears slightly decreased compared to the prior exam. 2. Similar appearance of mild streaky bilateral basilar atelectasis or infiltrate. RADIA
--- NOTE | 2019-04-30 09:54 | PROVIDER PROGRESS NOTE ---
Assessment/Plan - Problem List (1) Gallstone pancreatitis Assessment/Plan: Clinically resolved; Rec: given current cardiac status (CHF, elevated troponins, BMP) pt appears to not be optimized medically and might be at too high risk for surgery at this time, so will try feeding patient. If tolerates low fat diet, then pt can be discharged home and have a formal outpatient cardiology evaluation and then have surgery electively if/when cleared by them. Discussed with pt and family who are comfortable with this plan. If sx recur with feeding, then new plan will need to be devised. (2) Cholecystitis, acute Assessment/Plan: clinically resolved; rec: see above for biliary pancreatitis. (3) CHF (congestive heart failure) Qualifiers: Heart failure type: combined systolic and diastolic Heart failure chron icity: acute Qualified Code(s): I50.41 - Acute combined systolic (congestive) and diastolic (congestive) heart failure Assessment/Plan: Improving slowly; associated with severe pulmonary hypertension and persistent elevated troponins; Rec: as per hospitalist service. Pt does not appear medically optimized for surgery at present. Discussed with hospitalist, Dr. Ibarra, who agrees. - Current Meds Current Meds: Current Medications Generic Name Dose Route Start Last Admin Trade Name Freq PRN Reason Stop Dose Admin Hydrochlorothiazide 12.5 mg 04/28/19 09:00 04/30/19 09:18 Hydrodiuril PO 12.5 mg DAILY GIANA Administration Hydromorphone HCl 0.5 mg 04/26/19 20:11 04/29/19 20:47 Dilaudid Inj Syringe IVP 0.5 mg Q2H PRN Administration Pain 8 to 10 Piperacillin Sod/Tazobactam 100 mls @ 200 mls/hr 04/27/19 16:00 04/30/19 06:10 Sod 3.375 gm/ Sodium Chloride IV Infused Q8H GIANA Infusion Potassium Chloride/Dextrose/Sod Cl 1,000 mls @ 40 mls/hr 04/29/19 13:30 04/29/19 15:55 D5.45ns W/20 Meq Kcl IV 40 mls/hr .Q25H GIANA Administration Levothyroxine Sodium 88 mcg 04/29/19 07:00 04/30/19 05:39 Synthroid PO 88 mcg QDAC GIANA Administration Lidocaine 1 patch 04/27/19 08:41 04/27/19 10:42 Lidoderm Patch TOP 1 patch DAILY PRN Administration PAIN Lisinopril 20 mg 04/27/19 21:00 04/30/19 09:18 Zestril PO 20 mg BID GIANA Administration Metoprolol Succinate 25 mg 04/29/19 17:26 04/30/19 09:18 Toprol Xl PO 25 mg DAILY GIANA Administration Mineral Oil 1 applic 04/27/19 06:24 04/27/19 08:24 Cavilon TOP 1 applic PRN PRN Administration Skin Care Nystatin 1 applic 04/27/19 09:00 04/30/19 09:19 Nystop TOP 1 applic BID GIANA Administration Oxycodone HCl 5 mg 04/27/19 12:06 04/30/19 05:51 Roxicodone PO 5 mg Q4HR PRN Administration PAIN Pantoprazole Sodium 40 mg 04/27/19 07:00 04/30/19 05:55 Protonix IVP 40 mg QDAC GIANA Administration Polyethylene Glycol 17 gm 04/27/19 09:00 04/30/19 09:17 Miralax PO 17 gm DAILY GIANA Administration Sodium Chloride 10 ml 04/26/19 20:11 04/30/19 05:39 Normal Saline Flush 0.9% IVP 10 ml PRN PRN Administration NEEDED PER PROVIDER ORDERS Sodium Chloride 10 ml 04/27/19 01:00 04/30/19 09:18 Normal Saline Flush 0.9% IVP 10 ml 0100,0900,1700 GIANA Administration Spironolactone 25 mg 04/29/19 13:35 04/30/19 09:18 Aldactone PO 25 mg DAILY GIANA Administration - Lab Result Fish Bone Diagrams: 04/30/19 05:56 04/30/19 05:56 - Diagnostic Imaging Results Diagnostic Imaging Results: Final report reviewed, Read independently Diagnostic Imaging Results Comments: CXR shows improved but persistent signs of CHF with perihilar fullness, infil trates, basilar atelectasis, small pleural effusions, cardiomegaly. - Additional Planning Condition/Complexity: Improved Plan Discussed with:: Patient, Family, Other (hospitalist) Time Spent: 31-60 minutes Objective Vital Signs: Vital Signs - 24 hr 04/29/19 04/29/19 04/29/19 13:00 15:42 19:00 Temperature 36.4 C L 36.9 C 36.3 C L Heart Rate Heart Rate [ 80 91 84 Brachial] Respiratory 18 18 18 Rate Blood Pressure 183/85 H 170/88 H 170/83 H [Right Brachial artery] O2 Saturation 94 93 93 04/29/19 04/29/19 04/30/19 19:10 23:55 03:00 Temperature 36.9 C 36.8 C Heart Rate 84 Heart Rate [ 78 78 Brachial] Respiratory 18 16 16 Rate Blood Pressure 150/72 H 150/96 H [Right Brachial artery] O2 Saturation 93 92 04/30/19 07:48 Temperature 36.9 C Heart Rate Heart Rate [ 81 Brachial] Respiratory 22 Rate Blood Pressure 173/78 H [Right Brachial artery] O2 Saturation 93 Oxygen O2 Source Room air I&O (Last 24 Hrs): Intake and Output Totals x24h 04/28/19 04/29/19 04/30/19 23:59 23:59 23:59 Intake Total 3274.996 2158.75 200 Output Total 800 650 Balance 2474.996 1508.75 200 - Results Results: Laboratory Results WBC 12.9 x10^3/uL (4.8-10.8) H 04/30/19 05:56 RBC 4.26 10^6/uL (4.20-5.40) 04/30/19 05:56 Hgb 11.9 g/dL (12.0-16.0) L 04/30/19 05:56 Hct 36.9 % (37.0-47.0) L 04/30/19 05:56 MCV 86.6 fL (81.0-99.0) 04/30/19 05:56 MCH 27.9 pg (27.0-31.0) 04/30/19 05:56 MCHC 32.2 g/dL (32.0-36.0) 04/30/19 05:56 RDW 14.3 % (12.0-15.0) 04/30/19 05:56 Plt Count 174 10^3/uL (130-450) 04/30/19 05:56 MPV 10.2 fL (7.9-10.8) 04/30/19 05:56 Neut # (Auto) 11.4 10^3/uL (1.5-6.6) H 04/30/19 05:56 Lymph # (Auto) 0.5 10^3/uL (1.5-3.5) L 04/30/19 05:56 [place] # (Auto) 0.8 10^3/uL (0.0-1.0) 04/30/19 05:56 Eos # (Auto) 0.0 10^3/uL (0.0-0.7) 04/30/19 05:56 Baso # (Auto) 0.1 10^3/uL (0.0-0.1) 04/30/19 05:56 Absolute Nucleated RBC 0.00 x10^3/uL 04/30/19 05:56 Total Counted 100 04/29/19 05:25 Band Neuts % (Manual) 27 % (0-10) H 04/29/19 05:25 Abnorm Lymph % (Manual) 0 % 04/29/19 05:25 Nucleated RBC % 0.0 /100WBC 04/30/19 05:56 Neutrophils # (Manual) 8.5 10^3/uL (1.5-6.6) H 04/29/19 05:25 Lymphocytes # (Manual) 0.7 10^3/uL (1.5-3.5) L 04/29/19 05:25 Monocytes # (Manual) 0.7 10^3/uL (0.0-1.0) 04/29/19 05:25 Eosinophils # (Manual) 0.0 10^3/uL (0-0.7) 04/29/19 05:25 Basophils # (Manual) 0.0 10^3/uL (0-0.1) 04/29/19 05:25 Differential Comment MANUAL DIFFERENTIAL 04/29/19 05:25 Manual Slide Review Indicated 04/27/19 12:41 Platelet Estimate NORMAL (130-450,000) (NORMAL) 04/29/19 05:25 RBC Morph Micro Appear NORMAL APPEARANCE (NORMAL) 04/29/19 05:25 Whole Blood INR 1.1 (0.8-1.2) 04/27/19 09:48 Sodium 139 mmol/L (135-145) 04/30/19 05:56 Potassium 3.4 mmol/L (3.5-5.0) L 04/30/19 05:56 Chloride 106 mmol/L (101-111) 04/30/19 05:56 Carbon Dioxide 24 mmol/L (21-32) 04/30/19 05:56 Anion Gap 9.0 (6-13) 04/30/19 05:56 BUN 23 mg/dL (6-20) H 04/30/19 05:56 Creatinine 0.8 mg/dL (0.4-1.0) 04/30/19 05:56 Estimated GFR (MDRD) 68 (>89) L 04/30/19 05:56 Glucose 98 mg/dL (70-100) 04/30/19 05:56 Lactic Acid 1.4 mmol/L (0.5-2.2) 04/27/19 12:41 Calcium 8.8 mg/dL (8.5-10.3) 04/30/19 05:56 Total Bilirubin 1.1 mg/dL (0.2-1.0) H 04/30/19 05:56 AST 55 IU/L (10-42) H 04/30/19 05:56 ALT 116 IU/L (10-60) H 04/30/19 05:56 Alkaline Phosphatase 230 IU/L (42-121) H 04/30/19 05:56 Troponin I High Sens 39.2 pg/mL (2.3-14.8) H* 04/30/19 00:12 B-Natriuretic Peptide 522 pg/mL (5-100) H 04/30/19 05:56 Total Protein 5.8 g/dL (6.7-8.2) L 04/30/19 05:56 Albumin 2.5 g/dL (3.2-5.5) L 04/30/19 05:56 Globulin 3.3 g/dL (2.1-4.2) 04/30/19 05:56 Albumin/Globulin Ratio 0.8 (1.0-2.2) L 04/30/19 05:56 Lipase 36 U/L (22-51) 04/30/19 05:56 Carcinoembryonic Ag 1.5 ng/mL 04/28/19 09:00 CA 125 Antigen 12.1 U/mL (0.0-35.0) 04/28/19 09:00 TSH 0.20 uIU/mL (0.34-5.60) L 04/28/19 04:40 ABX Reporting Has patient been on IV antibiotics over the past 48 hours?: Yes
--- NOTE | 2019-04-30 10:51 | PROVIDER PROGRESS NOTE ---
Assessment/Plan - Problem List (1) Cholecystitis, acute Assessment/Plan: Possibly improving with medical management of bowel rest and iv antibiotic: Pip/Tazo. The surgeon has been following along and initial plan was for cholecystectomy, but that was postponed yesterday due to acute heart failure. Today the CXR is improved, but no surgery is planned, as of today due to clinical improvement with no abdominal pain or nausea. Will advance diet as tolerated. Watch WBC, which did increase today from 9 to 12 today. Because this in new CHF, the surgeon would like her to have cardiac clearance before any surgery, plus she does not require urget surgery, since the sx are resolving with medical management. If diet not tolerated, a different plan will be needed. (2) Acute diastolic (congestive) heart failure Assessment/Plan: The Echo showed an LVEF of 60% and grade II LV diastolic dysfunction. She does not have systolic heart failure. I spoke with the surgeon to correct his notes. Plan treatment with (new) B-joe plus Lisinopril to control BP control, since HTN is likely a cause of the diastolic dysfunction. She was not given Lasix, since she had KIZZY, and also was not eating due to NPO status. Yesterday the iv fluids were decreased to 40 cc/hr. Now the fluids are ordered to be off, in order to just hydrate po (since a diet of clear liquids was ordered today). The DC fluids was ordered at 0948, but not done til 1600. Because this in new CHF, the surgeon would like her to have cardiac clearance before any surgery, plus she does not require urget surgery, since the sx are resolving with medical management. (3) PSVT (paroxysmal supraventricular tachycardia) Assessment/Plan: She had another self terminated run of SVT, asymptomatic, it was at a rate of 175. She had longer SVT earlier this admission. Continue with daily beta-joe for suppression (4) KIZZY (acute kidney injury) Assessment/Plan: Improving after aggressive iv hydration, which was slowed down due to CHF clinically and by CXR. Follow BMP daily as fluids will be orally starting today. (5) Hypokalemia Assessment/Plan: Replace and follow electrolytes daily. Will stop the HCTZ, which may be adding to the hypokalemia (6) Hypertension Assessment/Plan: Controlled on home med of Lisinopril, and added Toprol and Spironolactone here. Will stop the HCTZ, which may be adding to the hypokalemia (7) Pulmonary HTN Assessment/Plan: This is a new finding from the Echo done 2 days ago. Spironolactone was ordered for gentle diuresis. (8) Pelvic mass in female Assessment/Plan: This will need W/U as an outpatient. (9) Gallstone pancreatitis Assessment/Plan: Resolved, with normal Lipases and no further abd pain. - Current Meds Current Meds: Current Medications Generic Name Dose Route Start Last Admin Trade Name Freq PRN Reason Stop Dose Admin Hydromorphone HCl 0.5 mg 04/26/19 20:11 04/29/19 20:47 Dilaudid Inj Syringe IVP 0.5 mg Q2H PRN Administration Pain 8 to 10 Piperacillin Sod/Tazobactam 100 mls @ 200 mls/hr 04/27/19 16:00 04/30/19 06:10 Sod 3.375 gm/ Sodium Chloride IV Infused Q8H GIANA Infusion Levothyroxine Sodium 88 mcg 04/29/19 07:00 04/30/19 05:39 Synthroid PO 88 mcg QDAC GIANA Administration Lidocaine 1 patch 04/27/19 08:41 04/27/19 10:42 Lidoderm Patch TOP 1 patch DAILY PRN Administration PAIN Lisinopril 20 mg 04/27/19 21:00 04/30/19 09:18 Zestril PO 20 mg BID GIANA Administration Metoprolol Succinate 25 mg 04/29/19 17:26 04/30/19 09:18 Toprol Xl PO 25 mg DAILY GIANA Administration Mineral Oil 1 applic 04/27/19 06:24 04/27/19 08:24 Cavilon TOP 1 applic PRN PRN Administration Skin Care Nystatin 1 applic 04/27/19 09:00 04/30/19 09:19 Nystop TOP 1 applic BID GIANA Administration Oxycodone HCl 5 mg 04/27/19 12:06 04/30/19 05:51 Roxicodone PO 5 mg Q4HR PRN Administration PAIN Sodium Chloride 10 ml 04/26/19 20:11 04/30/19 05:39 Normal Saline Flush 0.9% IVP 10 ml PRN PRN Administration NEEDED PER PROVIDER ORDERS Sodium Chloride 10 ml 04/27/19 01:00 04/30/19 09:18 Normal Saline Flush 0.9% IVP 10 ml 0100,0900,1700 GIANA Administration Spironolactone 25 mg 04/29/19 13:35 04/30/19 09:18 Aldactone PO 25 mg DAILY GIANA Administration - Lab Result Fish Bone Diagrams: 05/01/19 05:22 05/01/19 05:22 - Additional Planning My Orders: My Active Orders 05/01/19 07:00 Pantoprazole [Protonix] 40 mg PO QDAC Subjective - Subjective Patient Reports: Feeling Better, Resting Comfortably Objective Vital Signs: Vital Signs - 24 hr 04/29/19 04/29/19 04/29/19 13:00 15:42 19:00 Temperature 36.4 C L 36.9 C 36.3 C L Heart Rate Heart Rate [ 80 91 84 Brachial] Respiratory 18 18 18 Rate Blood Pressure 183/85 H 170/88 H 170/83 H [Right Brachial artery] O2 Saturation 94 93 93 04/29/19 04/29/19 04/30/19 19:10 23:55 03:00 Temperature 36.9 C 36.8 C Heart Rate 84 Heart Rate [ 78 78 Brachial] Respiratory 18 16 16 Rate Blood Pressure 150/72 H 150/96 H [Right Brachial artery] O2 Saturation 93 92 04/30/19 07:48 Temperature 36.9 C Heart Rate Heart Rate [ 81 Brachial] Respiratory 22 Rate Blood Pressure 173/78 H [Right Brachial artery] O2 Saturation 93 Oxygen O2 Source Room air I&O (Last 24 Hrs): Intake and Output Totals x24h 04/28/19 04/29/19 04/30/19 23:59 23:59 23:59 Intake Total 3274.996 2158.75 200 Output Total 800 650 Balance 2474.996 1508.75 200 General: Alert, Oriented x3 HEENT: Mucous membr. moist/pink Neck: Supple, No JVD Neuro: Alert, Non Focal Cardiovascular: Regular rate, No murmurs Respiratory: No respiratory distress, Breath sounds nml Abdomen: Normal bowel sounds, Soft Extremities: No edema - Results Results: Laboratory Results WBC 12.9 x10^3/uL (4.8-10.8) H 04/30/19 05:56 RBC 4.26 10^6/uL (4.20-5.40) 04/30/19 05:56 Hgb 11.9 g/dL (12.0-16.0) L 04/30/19 05:56 Hct 36.9 % (37.0-47.0) L 04/30/19 05:56 MCV 86.6 fL (81.0-99.0) 04/30/19 05:56 MCH 27.9 pg (27.0-31.0) 04/30/19 05:56 MCHC 32.2 g/dL (32.0-36.0) 04/30/19 05:56 RDW 14.3 % (12.0-15.0) 04/30/19 05:56 Plt Count 174 10^3/uL (130-450) 04/30/19 05:56 MPV 10.2 fL (7.9-10.8) 04/30/19 05:56 Neut # (Auto) 11.4 10^3/uL (1.5-6.6) H 04/30/19 05:56 Lymph # (Auto) 0.5 10^3/uL (1.5-3.5) L 04/30/19 05:56 [place] # (Auto) 0.8 10^3/uL (0.0-1.0) 04/30/19 05:56 Eos # (Auto) 0.0 10^3/uL (0.0-0.7) 04/30/19 05:56 Baso # (Auto) 0.1 10^3/uL (0.0-0.1) 04/30/19 05:56 Absolute Nucleated RBC 0.00 x10^3/uL 04/30/19 05:56 Total Counted 100 04/29/19 05:25 Band Neuts % (Manual) 27 % (0-10) H 04/29/19 05:25 Abnorm Lymph % (Manual) 0 % 04/29/19 05:25 Nucleated RBC % 0.0 /100WBC 04/30/19 05:56 Neutrophils # (Manual) 8.5 10^3/uL (1.5-6.6) H 04/29/19 05:25 Lymphocytes # (Manual) 0.7 10^3/uL (1.5-3.5) L 04/29/19 05:25 Monocytes # (Manual) 0.7 10^3/uL (0.0-1.0) 04/29/19 05:25 Eosinophils # (Manual) 0.0 10^3/uL (0-0.7) 04/29/19 05:25 Basophils # (Manual) 0.0 10^3/uL (0-0.1) 04/29/19 05:25 Differential Comment MANUAL DIFFERENTIAL 04/29/19 05:25 Manual Slide Review Indicated 04/27/19 12:41 Platelet Estimate NORMAL (130-450,000) (NORMAL) 04/29/19 05:25 RBC Morph Micro Appear NORMAL APPEARANCE (NORMAL) 04/29/19 05:25 Whole Blood INR 1.1 (0.8-1.2) 04/27/19 09:48 Sodium 139 mmol/L (135-145) 04/30/19 05:56 Potassium 3.4 mmol/L (3.5-5.0) L 04/30/19 05:56 Chloride 106 mmol/L (101-111) 04/30/19 05:56 Carbon Dioxide 24 mmol/L (21-32) 04/30/19 05:56 Anion Gap 9.0 (6-13) 04/30/19 05:56 BUN 23 mg/dL (6-20) H 04/30/19 05:56 Creatinine 0.8 mg/dL (0.4-1.0) 04/30/19 05:56 Estimated GFR (MDRD) 68 (>89) L 04/30/19 05:56 Glucose 98 mg/dL (70-100) 04/30/19 05:56 Lactic Acid 1.4 mmol/L (0.5-2.2) 04/27/19 12:41 Calcium 8.8 mg/dL (8.5-10.3) 04/30/19 05:56 Total Bilirubin 1.1 mg/dL (0.2-1.0) H 04/30/19 05:56 AST 55 IU/L (10-42) H 04/30/19 05:56 ALT 116 IU/L (10-60) H 04/30/19 05:56 Alkaline Phosphatase 230 IU/L (42-121) H 04/30/19 05:56 Troponin I High Sens 39.2 pg/mL (2.3-14.8) H* 04/30/19 00:12 B-Natriuretic Peptide 522 pg/mL (5-100) H 04/30/19 05:56 Total Protein 5.8 g/dL (6.7-8.2) L 04/30/19 05:56 Albumin 2.5 g/dL (3.2-5.5) L 04/30/19 05:56 Globulin 3.3 g/dL (2.1-4.2) 04/30/19 05:56 Albumin/Globulin Ratio 0.8 (1.0-2.2) L 04/30/19 05:56 Lipase 36 U/L (22-51) 04/30/19 05:56 Carcinoembryonic Ag 1.5 ng/mL 04/28/19 09:00 CA 125 Antigen 12.1 U/mL (0.0-35.0) 04/28/19 09:00 TSH 0.20 uIU/mL (0.34-5.60) L 04/28/19 04:40
[2019-04-30] MEDS: ENOXAPARIN 30 MG/0.3 ML SYRINGE SUBQ SCH (11:01)
[2019-05-01] MEDS: PIPERACILLIN/TAZOBACTAM 3.375 GM in SODIUM CHLORIDE 0.9% MINIBAG 100 ML IV SCH ×4 (00:51→19:37)
[2019-05-01] MEDS: SODIUM CHLORIDE FLUSH 0.9% 10 ML SYRINGE IVP SCH ×4 (00:51→19:38)
[2019-05-01 05:48] LABS: BASOPHILS # (AUTO) 0.1 10^3/uL (0.0-0.1); BASOPHILS % (AUTO) 0.5 %; EOSINOPHILS # (AUTO) 0.1 10^3/uL (0.0-0.7); HGB - HEMOGLOBIN 11.1 g/dL (12.0-16.0); LYMPHOCYTES # (AUTO) 0.7 10^3/uL (1.5-3.5); LYMPHOCYTES % (AUTO) 5.3 %; MEAN CORPUSCULAR HEMOGLOBIN 26.9 pg (27.0-31.0); MEAN CORPUSCULAR HGB CONC 31.6 g/dL (32.0-36.0); MEAN CORPUSCULAR VOLUME 85.2 fL (81.0-99.0); MEAN PLATELET VOLUME 10.2 fL (7.9-10.8); MONOCYTES % (AUTO) 7.3 %; NEUTROPHILS # (AUTO) 10.9 10^3/uL (1.5-6.6); NEUTROPHILS % (AUTO) 83.1 %; PLT - PLATELET COUNT 161 10^3/uL (130-450); RED BLOOD COUNT 4.12 10^6/uL (4.20-5.40); RED CELL DISTRIBUTION WIDTH 14.4 % (12.0-15.0); WHITE BLOOD COUNT 13.1 x10^3/uL (4.8-10.8)
[2019-05-01 06:00] LABS: ALBUMIN 2.3 g/dL (3.2-5.5); ALBUMIN/GLOBULIN RATIO 0.7 (1.0-2.2); BILIRUBIN,TOTAL 1.1 mg/dL (0.2-1.0); CALCIUM 8.7 mg/dL (8.5-10.3); CREATININE 0.8 mg/dL (0.4-1.0); TOTAL PROTEIN 5.6 g/dL (6.7-8.2)
[2019-05-01] MEDS: PANTOPRAZOLE 40 MG TABLET PO SCH (06:43)
--- NOTE | 2019-05-01 07:57 | PROVIDER PROGRESS NOTE ---
Assessment/Plan - Problem List (1) Gallstone pancreatitis Assessment/Plan: Clinically resolved. Plan: advance to low fat diet as mj. Outpatient lap michelle after formal cardiology evaluation and cleared for elective surgery. Plan discussed in detail again with pt and her sister. (2) Cholecystitis, acute Assessment/Plan: Clinically resolved; PLan: same as for bililary pancreatitis. (3) CHF (congestive heart failure) Qualifiers: Heart failure type: diastolic Heart failure chronicity: acute Qualified Code(s): I50.31 - Acute diastolic (congestive) heart failure Assessment/Plan: As per hospitalists. Pulmonary edema with findings consistent with "cardiac asthma" persist. - Current Meds Current Meds: Current Medications Generic Name Dose Route Start Last Admin Trade Name Freq PRN Reason Stop Dose Admin Enoxaparin Sodium 30 mg 04/30/19 10:00 04/30/19 11:01 Lovenox SUBQ 30 mg DAILY GIANA Administration Hydromorphone HCl 0.5 mg 04/26/19 20:11 04/29/19 20:47 Dilaudid Inj Syringe IVP 0.5 mg Q2H PRN Administration Pain 8 to 10 Piperacillin Sod/Tazobactam 100 mls @ 200 mls/hr 04/27/19 16:00 05/01/19 01:21 Sod 3.375 gm/ Sodium Chloride IV Infused Q8H GIANA Infusion Levothyroxine Sodium 88 mcg 04/29/19 07:00 04/30/19 05:39 Synthroid PO 88 mcg QDAC GIANA Administration Lidocaine 1 patch 04/27/19 08:41 04/27/19 10:42 Lidoderm Patch TOP 1 patch DAILY PRN Administration PAIN Lisinopril 20 mg 04/27/19 21:00 04/30/19 20:41 Zestril PO 20 mg BID GIANA Administration Metoprolol Succinate 25 mg 04/29/19 17:26 04/30/19 09:18 Toprol Xl PO 25 mg DAILY GIANA Administration Mineral Oil 1 applic 04/27/19 06:24 04/27/19 08:24 Cavilon TOP 1 applic PRN PRN Administration Skin Care Nystatin 1 applic 04/27/19 09:00 04/30/19 20:41 Nystop TOP 1 applic BID GIANA Administration Oxycodone HCl 5 mg 04/27/19 12:06 04/30/19 20:38 Roxicodone PO 5 mg Q4HR PRN Administration PAIN Pantoprazole Sodium 40 mg 05/01/19 07:00 05/01/19 06:43 Protonix PO 40 mg QDAC GIANA Administration Sodium Chloride 10 ml 04/26/19 20:11 04/30/19 05:39 Normal Saline Flush 0.9% IVP 10 ml PRN PRN Administration NEEDED PER PROVIDER ORDERS Sodium Chloride 10 ml 04/27/19 01:00 05/01/19 00:51 Normal Saline Flush 0.9% IVP 10 ml 0100,0900,1700 GIANA Administration Spironolactone 25 mg 04/29/19 13:35 04/30/19 09:18 Aldactone PO 25 mg DAILY GIANA Administration - Lab Result Lab results reviewed: Yes Fish Bone Diagrams: 05/01/19 05:22 05/01/19 05:22 - Diagnostic Imaging Results Diagnostic Imaging Results: Read independently Diagnostic Imaging Results Comments: CXR shows peristent cardiomegaly and fluffy perihilar inflitrates, small pl effusions c/w pulmonary edema. - Additional Planning Condition/Complexity: Improved My Orders: My Active Orders 04/30/19 10:00 Enoxaparin [Lovenox] 30 mg SUBQ DAILY 05/01/19 09:00 Chest 2 View X-Ray [XR] DAILY Polyethylene Glycol 3350 [Miralax] 17 gm PO DAILY 05/01/19 Lunch Full Liquid Diet [DIET] Plan Discussed with:: Patient, Family, Other (hospitalist) Time Spent: 31-60 minutes Subjective - Subjective Patient Reports: Feeling Better, Resting Comfortably, No Complaints (hungry; no stool since admission; no abd pain; tolerating clear liquid diet well so far) Objective Vital Signs: Vital Signs - 24 hr 04/30/19 04/30/19 04/30/19 10:50 13:06 16:07 Temperature 36.6 C 36.7 C Heart Rate 72 Heart Rate [ 79 72 Brachial] Respiratory 16 16 15 Rate Blood Pressure 134/76 H 151/93 H [Left Brachial artery] Blood Pressure [Right Brachial artery] Blood Pressure [Right Radial artery] O2 Saturation 92 94 04/30/19 04/30/19 04/30/19 19:10 20:44 22:55 Temperature 36.7 C 37.0 C Heart Rate 79 Heart Rate [ 83 83 Brachial] Respiratory 16 20 20 Rate Blood Pressure [Left Brachial artery] Blood Pressure [Right Brachial artery] Blood Pressure 153/81 H 154/74 H [Right Radial artery] O2 Saturation 94 93 04/30/19 05/01/19 05/01/19 23:35 02:55 07:42 Temperature 37.2 C 36.8 C 36.7 C Heart Rate Heart Rate [ 77 80 76 Brachial] Respiratory 16 16 18 Rate Blood Pressure 183/80 H [Left Brachial artery] Blood Pressure 114/50 L 115/92 H [Right Brachial artery] Blood Pressure [Right Radial artery] O2 Saturation 92 93 94 Oxygen O2 Source Room air I&O (Last 24 Hrs): Intake and Output Totals x24h 04/29/19 04/30/19 05/01/19 23:59 23:59 23:59 Intake Total 2158.75 1876 100 Output Total 650 200 Balance 1508.75 1676 100 General: Alert, Oriented x3, Cooperative Neck: Supple, No JVD Neuro: Alert Cardiovascular: Regular rate, Normal S1, Normal S2 Respiratory: Chest non-tender, No respiratory distress, Wheezes (expiratory), Rales (at bases) Abdomen: Soft, No tenderness, No hepatospenomegaly, No masses Extremities: No edema, No tenderness/swelling - Results Results: Laboratory Results WBC 13.1 x10^3/uL (4.8-10.8) H 05/01/19 05:22 RBC 4.12 10^6/uL (4.20-5.40) L 05/01/19 05:22 Hgb 11.1 g/dL (12.0-16.0) L 05/01/19 05:22 Hct 35.1 % (37.0-47.0) L 05/01/19 05:22 MCV 85.2 fL (81.0-99.0) 05/01/19 05:22 MCH 26.9 pg (27.0-31.0) L 05/01/19 05:22 MCHC 31.6 g/dL (32.0-36.0) L 05/01/19 05:22 RDW 14.4 % (12.0-15.0) 05/01/19 05:22 Plt Count 161 10^3/uL (130-450) 05/01/19 05:22 MPV 10.2 fL (7.9-10.8) 05/01/19 05:22 Neut # (Auto) 10.9 10^3/uL (1.5-6.6) H 05/01/19 05:22 Lymph # (Auto) 0.7 10^3/uL (1.5-3.5) L 05/01/19 05:22 [place] # (Auto) 1.0 10^3/uL (0.0-1.0) 05/01/19 05:22 Eos # (Auto) 0.1 10^3/uL (0.0-0.7) 05/01/19 05:22 Baso # (Auto) 0.1 10^3/uL (0.0-0.1) 05/01/19 05:22 Absolute Nucleated RBC 0.00 x10^3/uL 05/01/19 05:22 Total Counted 100 04/29/19 05:25 Band Neuts % (Manual) 27 % (0-10) H 04/29/19 05:25 Abnorm Lymph % (Manual) 0 % 04/29/19 05:25 Nucleated RBC % 0.0 /100WBC 05/01/19 05:22 Neutrophils # (Manual) 8.5 10^3/uL (1.5-6.6) H 04/29/19 05:25 Lymphocytes # (Manual) 0.7 10^3/uL (1.5-3.5) L 04/29/19 05:25 Monocytes # (Manual) 0.7 10^3/uL (0.0-1.0) 04/29/19 05:25 Eosinophils # (Manual) 0.0 10^3/uL (0-0.7) 04/29/19 05:25 Basophils # (Manual) 0.0 10^3/uL (0-0.1) 04/29/19 05:25 Differential Comment MANUAL DIFFERENTIAL 04/29/19 05:25 Manual Slide Review Indicated 04/27/19 12:41 Platelet Estimate NORMAL (130-450,000) (NORMAL) 04/29/19 05:25 RBC Morph Micro Appear NORMAL APPEARANCE (NORMAL) 04/29/19 05:25 Whole Blood INR 1.1 (0.8-1.2) 04/27/19 09:48 Sodium 140 mmol/L (135-145) 05/01/19 05:22 Potassium 3.2 mmol/L (3.5-5.0) L 05/01/19 05:22 Chloride 107 mmol/L (101-111) 05/01/19 05:22 Carbon Dioxide 25 mmol/L (21-32) 05/01/19 05:22 Anion Gap 8.0 (6-13) 05/01/19 05:22 BUN 21 mg/dL (6-20) H 05/01/19 05:22 Creatinine 0.8 mg/dL (0.4-1.0) 05/01/19 05:22 Estimated GFR (MDRD) 68 (>89) L 05/01/19 05:22 Glucose 89 mg/dL (70-100) 05/01/19 05:22 Lactic Acid 1.4 mmol/L (0.5-2.2) 04/27/19 12:41 Calcium 8.7 mg/dL (8.5-10.3) 05/01/19 05:22 Total Bilirubin 1.1 mg/dL (0.2-1.0) H 05/01/19 05:22 AST 32 IU/L (10-42) 05/01/19 05:22 ALT 84 IU/L (10-60) H 05/01/19 05:22 Alkaline Phosphatase 238 IU/L (42-121) H 05/01/19 05:22 Troponin I High Sens 39.2 pg/mL (2.3-14.8) H* 04/30/19 00:12 B-Natriuretic Peptide 581 pg/mL (5-100) H 05/01/19 05:22 Total Protein 5.6 g/dL (6.7-8.2) L 05/01/19 05:22 Albumin 2.3 g/dL (3.2-5.5) L 05/01/19 05:22 Globulin 3.3 g/dL (2.1-4.2) 05/01/19 05:22 Albumin/Globulin Ratio 0.7 (1.0-2.2) L 05/01/19 05:22 Lipase 28 U/L (22-51) 05/01/19 05:22 Carcinoembryonic Ag 1.5 ng/mL 04/28/19 09:00 CA 125 Antigen 12.1 U/mL (0.0-35.0) 04/28/19 09:00 TSH 0.20 uIU/mL (0.34-5.60) L 04/28/19 04:40 ABX Reporting Has patient been on IV antibiotics over the past 48 hours?: Yes
--- NOTE | 2019-05-01 08:45 | XRAY Report ---
Reason: f/u CHF Procedure Date: 05/01/2019 Accession Number: [id number] / [id number] Procedure: XR - Chest 2 View X-Ray CPT Code: 25592 FULL RESULT: EXAM: CHEST RADIOGRAPHY EXAM DATE: 05/01/2019 05:57 AM. CLINICAL HISTORY: F/u CHF. COMPARISON: CHEST 2 VIEW 04/30/2019 7:49 AM. TECHNIQUE: 2 views. FINDINGS: Lungs/Pleura: Mild pulmonary vascular congestion and diffuse bilateral interstitial prominence appear similar to prior. Mild streaky and hazy opacities at the bilateral lung bases are unchanged. There are small bilateral pleural effusions, similar to prior. No pneumothorax. Mediastinum: There is stable mild enlargement of the cardiac silhouette. There is mild atherosclerotic calcification of the aortic arch. Other: Bones are diffusely demineralized. No acute displaced fracture visualized. There are moderate degenerative disk changes of the thoracic spine. IMPRESSION: 1. Similar appearance of mild CHF/fluid overload pattern including pulmonary vascular congestion, interstitial edema, mild cardiomegaly, and small bilateral pleural effusions. 2. Mild streaky and hazy bilateral basilar atelectasis or infiltrate, similar to prior. RADIA
[2019-05-01] MEDS: LISINOPRIL 20 MG TABLET PO SCH ×2 (08:50→21:21)
[2019-05-01] MEDS: LEVOTHYROXINE 88 MCG TABLET PO SCH (08:50)
[2019-05-01] MEDS: METOPROLOL SUCCINATE 25 MG TABLET PO SCH ×2 (08:50→21:20)
[2019-05-01] MEDS: SPIRONOLACTONE 25 MG TABLET PO SCH (08:50)
[2019-05-01] MEDS: ENOXAPARIN 30 MG/0.3 ML SYRINGE SUBQ SCH (08:51)
[2019-05-01] MEDS: POLYETHYLENE GLYCOL 3350 17 GM PACKET PO SCH (08:51)
[2019-05-01] MEDS: NYSTATIN POWDER 15 GM TOP SCH ×2 (08:52→21:21)
[2019-05-01] MEDS ORDERED: POTASSIUM CHLORIDE 20 MEQ TABLET PO SCH (09:13)
[2019-05-01] MEDS ORDERED: VANCOMYCIN PER PHARMACY 1 GM in SODIUM CHLORIDE 0.9% 250 ML IV SCH (10:00)
[2019-05-01] MEDS ORDERED: VANCOMYCIN INJ 1 GM in SODIUM CHLORIDE 0.9% 250 ML IV SCH (10:00)
[2019-05-01] MEDS: FUROSEMIDE 20 MG TABLET PO SCH (10:18)
--- NOTE | 2019-05-01 12:09 | PROVIDER PROGRESS NOTE ---
Subjective - Prog Note Date Prog Note Date: 05/01/19 - Subjective Pt reports feeling: Improved Subjective: pt report she tolerate the diet, she has no nausea or vomiting and no abdominal pain. she report her breath is better than yesterday. she denies fever, chill, SOB or chest pain. Current Medications - Current Medications Current Medications: Active Medications Clonidine HCl (Catapres) 0.1 mg PO BID PRN PRN Reason: Hypertensive Emergency Enoxaparin Sodium (Lovenox) 30 mg SUBQ DAILY [facility] Last Admin: 05/01/19 08:51 Dose: 30 mg Furosemide (Lasix) 20 mg PO DAILY [facility] Last Admin: 05/01/19 10:18 Dose: 20 mg Hydromorphone HCl (Dilaudid Inj Syringe) 0.5 mg IVP Q2H PRN PRN Reason: Pain 8 to 10 Last Admin: 04/29/19 20:47 Dose: 0.5 mg Vancomycin HCl 0.75 gm/ Sodium (Chloride) 250 mls @ 167 mls/hr IV Q12H GIANA Piperacillin Sod/Tazobactam (Sod 3.375 gm/ Sodium Chloride) 100 mls @ 200 mls/hr IV Q6H GIANA Levalbuterol HCl (Xopenex) 1.25 mg INH RTQ4H PRN PRN Reason: Wheezing Levothyroxine Sodium (Synthroid) 88 mcg PO QDAC [facility] Last Admin: 05/01/19 08:50 Dose: 88 mcg Lidocaine (Lidoderm Patch) 1 patch TOP DAILY PRN PRN Reason: PAIN Last Admin: 04/27/19 10:42 Dose: 1 patch Lisinopril (Zestril) 20 mg PO BID [facility] Last Admin: 05/01/19 08:50 Dose: 20 mg Metoprolol Succinate (Toprol Xl) 25 mg PO DAILY [facility] Last Admin: 05/01/19 08:50 Dose: 25 mg Mineral Oil (Cavilon) 1 applic TOP PRN PRN PRN Reason: Skin Care Last Admin: 04/27/19 08:24 Dose: 1 applic Nystatin (Nystop) 1 applic TOP BID [facility] Last Admin: 05/01/19 08:52 Dose: 1 applic Ondansetron HCl (Zofran Inj) 4 mg IVP Q6HR PRN PRN Reason: Nausea / Vomiting Oxycodone HCl (Roxicodone) 5 mg PO Q4HR PRN PRN Reason: PAIN Last Admin: 04/30/19 20:38 Dose: 5 mg Pantoprazole Sodium (Protonix) 40 mg PO QDAC [facility] Last Admin: 05/01/19 06:43 Dose: 40 mg Polyethylene Glycol (Miralax) 17 gm PO DAILY [facility] Last Admin: 05/01/19 08:51 Dose: 17 gm Sodium Chloride (Normal Saline Flush 0.9%) 10 ml IVP PRN PRN PRN Reason: NEEDED PER PROVIDER ORDERS Last Admin: 04/30/19 05:39 Dose: 10 ml Sodium Chloride (Normal Saline Flush 0.9%) 10 ml IVP 0100,0900,1700 [facility] Last Admin: 05/01/19 08:50 Dose: 10 ml Spironolactone (Aldactone) 25 mg PO DAILY [facility] Last Admin: 05/01/19 08:50 Dose: 25 mg Multivitamin [Multivitamins] 1 each PO DAILY 12/13/17 Omeprazole [PriLOSEC] 20 mg PO DAILY 12/13/17 Calcium Carbonate/Vitamin D3 [Calcium 600 + Vit D 400 Tablet] 1 tab PO BID 11/18 03/06 Hydrochlorothiazide 12.5 mg PO DAILY 12/14/17 Levothyroxine [Synthroid] 100 mcg PO QDAC 12/14/17 Lisinopril 20 mg PO BID 12/14/17 Objective - Vital Signs/Intake & Output Reviewed Vital Signs: Yes Vital Signs: Vital Signs x48h Temp Pulse Resp BP Pulse Ox 05/01/19 07:42 36.7 C 76 18 183/80 H 94 Intake & Output: Intake & Output 04/28/19 04/29/19 04/30/19 05/01/19 23:59 23:59 23:59 23:59 Intake Total 3274.996 2158.75 1876 320 Output Total 800 650 200 Balance 2474.996 1508.75 1676 320 - Objective General Appearance: positive: No acute distress, Alert. negative: Lethargic Eyes Bilateral: positive: Normal inspection, PERRL, No lid inflammation, Conjunctivae nml ENT: positive: ENT inspection nml, Pharynx nml, No signs of dehydration. negative: Purulent nasal drainage, Pharyngeal erythema, Oral lesions Neck: positive: Nml inspection, Thyroid nml, No JVD, Trachea midline. negative: Thyromegaly, Lymphadenopathy (R), Lymphadenopathy (L), Stiff neck, Swelling/bruising, Tracheal deviation Respiratory: positive: Chest non-tender, No respiratory distress, Rhonchi. negative: Breath sounds nml, Wheezes, Rales Cardiovascular: positive: Regular rate & rhythm, No murmur, No gallop. negative: Irregularly irregular, Extrasystoles, Tachycardia, Bradycardia, JVD present, Systolic murmur, Diastolic murmur Peripheral Pulses: 2+ Radial (R), 2+ Radial (L), 2+ Dorsalis pedis (R), 2+ Dorsalis pedis (L) Abdomen: positive: Non-tender, No organomegaly, Nml bowel sounds, No distention. negative: Tenderness, Guarding, Rebound Back: positive: Nml inspection. negative: CVA tenderness (R), CVA tenderness (L) Skin: positive: Color nml, No rash, Warm, Dry. negative: Cyanosis, Diaphoresis, Pallor Extremities: positive: Non-tender, Nml appearance. negative: Calf tenderness, Joint swelling, Steve's sign/cords Neurologic/Psychiatric: positive: Oriented x3, Sensation nml, Mood/affect nml. negative: Weakness, Sensory loss, Facial droop, Slurred/abnml speech, Depressed mood/affect - Lab Results Fish Bones: 05/01/19 05:22 05/01/19 05:22 Other Labs: Lab Results x24hrs 05/01/19 05/01/19 05/01/19 Range/Units 05:22 05:22 05:22 WBC 13.1 H (4.8-10.8) x10^3/uL RBC 4.12 L (4.20-5.40) 10^6/uL Hgb 11.1 L (12.0-16.0) g/dL Hct 35.1 L (37.0-47.0) % MCV 85.2 (81.0-99.0) fL MCH 26.9 L (27.0-31.0) pg MCHC 31.6 L (32.0-36.0) g/dL RDW 14.4 (12.0-15.0) % Plt Count 161 (130-450) 10^3/uL MPV 10.2 (7.9-10.8) fL Neut # (Auto) 10.9 H (1.5-6.6) 10^3/uL Lymph # (Auto) 0.7 L (1.5-3.5) 10^3/uL [place] # (Auto) 1.0 (0.0-1.0) 10^3/uL Eos # (Auto) 0.1 (0.0-0.7) 10^3/uL Baso # (Auto) 0.1 (0.0-0.1) 10^3/uL Absolute Nucleated RBC 0.00 x10^3/uL Nucleated RBC % 0.0 /100WBC Sodium 140 (135-145) mmol/L Potassium 3.2 L (3.5-5.0) mmol/L Chloride 107 (101-111) mmol/L Carbon Dioxide 25 (21-32) mmol/L Anion Gap 8.0 (6-13) BUN 21 H (6-20) mg/dL Creatinine 0.8 (0.4-1.0) mg/dL Estimated GFR (MDRD) 68 L (>89) Glucose 89 (70-100) mg/dL Calcium 8.7 (8.5-10.3) mg/dL Total Bilirubin 1.1 H (0.2-1.0) mg/dL AST 32 (10-42) IU/L ALT 84 H (10-60) IU/L Alkaline Phosphatase 238 H (42-121) IU/L B-Natriuretic Peptide 581 H (5-100) pg/mL Total Protein 5.6 L (6.7-8.2) g/dL Albumin 2.3 L (3.2-5.5) g/dL Globulin 3.3 (2.1-4.2) g/dL Albumin/Globulin Ratio 0.7 L (1.0-2.2) Lipase 28 (22-51) U/L ABX Reporting Has patient been on IV antibiotics over the past 48 hours?: Yes Assessment/Plan - Problem List (1) Pancreatitis Impression: 05/01 significant improved. pt has no abdominal pain pt tolerate diet. pt's l ipase is normal now 04/29 today pt's lipase is down 54. pt report her abdominal pain is good contro lled. very gently IVF with 40ml/h of D5, consideration of small pleural effusion in lung continue lab and vital, and tele monitor 04/28 improved. Lipase is down to 217. pt report her abdominal pain is better continue gently IVF with D5 lab monitor 04/27 Lipase is down to 890 from 1600. pt report her abdominal pain is slight better. pt can not have MRCP because of metal in her ear. CT reveals suspicion of acute cholecystitis add zosyn consulted with surgeon, followup continue IVF of NS continue pain control continue lab monitor Lipase (2)pneumonia pt feels better breath today. CXR reveals fluffy perihilar inflitrates, small pl effusions c/w pulmonary edema. WBC is 13.1 today, slight elevated from yesterday 12.9. Sats is better 99% on room air continue Zosyn, add Vancomycin for HCAP daily lab monitor incentive spirometer encourage pt safely ambulation as can (3) acute cholecystitis 05/01, significantly improved. pt has no abdominal pain, pt tolerate diet, no nausea or vomiting followup surgeon's recommendation, out-pt followup surgeon 04/29 pt report pt's abdominal pain is good controlled. WBC is still in normal arrange. continue antibiotics Zosyn pt might have Epi on tomorrow, continue NPO with gently IVF of D5 Revised cardiac risk index for pre-operative Risk is one points class II risk, 6% 30-day risk of , DE, or cardiac arrest 04/28 CT reveals acute cholecystiti, and present right upper quadrant pain continue Zosyn continue pain control NPO with D5 1/2 NS (4)acute kidney injury 05/01 resolved, as pt's baseline 04/29 continue improved lab monitor 04/28 improved, creatinine is 1.o today. continue gently hydration, lab monitor 04/27 creatinine increase to 1.3 from 0.7. it is likely from pt's nausea and vomiting, pt's hypovolemia Bolus of NS of 500ml, increase IVF to 125 cc/h of NS continue lab monitor (5) Hypertension Conclusion/Plan: 06/01 add clonidine PRN, continue Lisinopril, metoprolol continue vital monitor 04/29 slight elevated BP, add spironolactone, consideration of pulmonary HTN, cor pulmonale, and slight hypokalemia add hydralazine PRN vital monitor stable, continue home meds, Lisinopril and HCTZ vital monitor (6) Hypothyroidism Conclusion/Plan: 04/28 TSH is 0.2 lower, decrease synthroid to 88mcg from 100 mcg advise followup PCP management will check TSH, and Resume synthroid (7) GERD (gastroesophageal reflux disease) Conclusion/Plan: Protonix ordered (8) Osteoporosis Conclusion/Plan: Patient on Calcium/Vit D supplement at home (9) Chronic back pain Conclusion/Plan: Pain management prn (10) Hypokalemia Conclusion/Plan: 04/27 resolved (11) pelvic mass 05/01, consulted with OB, will followup. US reveal benign rachel etiology should be considered per UA reading. 04/29 US reveal benign rachel etiology should be considered per UA reading. unfortunately pt can not have MRI because of mental piece in her ear. 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 pt has no obvious SOB. pt does not need O2 supplement as far. pt's lung sound still abnormal with mild to moderate crackles bilaterally continue treated with antibiotics add low dosage Lasix 20 mg daily, since CXR reveals pulmonary edema, small pleural effusion 04/29. pt's breath is better, no wheezing in whole lobes bilaterally. pt has 94% on room air. CXR reveals bibasilar atelectasis, small bilateral effusion. Adriana Santizo reached with Dr. Gonzales, surgeon, will hold surgeon today decrease IVF from 75mm/h to to 40 ml/h add Spironolactone daily tele and vital monitor supplement of O2 as needed 04/28 pt present some SOB, with wheezing breath sound CXR reveals pulmonary edema, it is likely from fluid overload, but pt's decrease kidney function required hydration reduce IVF from 125cc to 75 cc/h supplement O2 as needed closely monitor pt's respiratory status, (13) pulmonary HTN 04/29 ECHO reveals RVSP 74 mmHG, reveals the result of ECHO with pt and pt's son spironolactone is added for pt (14) Cor pulmonale 04/29 ECHO reveals severe right abnormal high pressure, add spironolactone continue Lisinopril, and Metoprolol
[2019-05-01] MEDS: LIDOCAINE PATCH 5% TOP PRN (16:57)
[2019-05-01] MEDS: VANCOMYCIN INJ 0.75 GM in SODIUM CHLORIDE 0.9% 250 ML IV SCH (21:35)
[2019-05-01] MEDS: SODIUM CHLORIDE FLUSH 0.9% 10 ML SYRINGE IVP PRN (23:11)
[2019-05-02] MEDS: PIPERACILLIN/TAZOBACTAM 3.375 GM in SODIUM CHLORIDE 0.9% MINIBAG 100 ML IV SCH ×4 (02:10→19:41)
[2019-05-02] MEDS: SODIUM CHLORIDE FLUSH 0.9% 10 ML SYRINGE IVP SCH ×3 (02:11→16:50)
[2019-05-02 05:59] LABS: BASOPHILS # (AUTO) 0.1 10^3/uL (0.0-0.1); BASOPHILS % (AUTO) 0.6 %; EOSINOPHILS # (AUTO) 0.2 10^3/uL (0.0-0.7); EOSINOPHILS % (AUTO) 1.1 %; HGB - HEMOGLOBIN 10.6 g/dL (12.0-16.0); LYMPHOCYTES # (AUTO) 0.8 10^3/uL (1.5-3.5); LYMPHOCYTES % (AUTO) 5.5 %; MEAN CORPUSCULAR HEMOGLOBIN 28.1 pg (27.0-31.0); MEAN CORPUSCULAR VOLUME 85.1 fL (81.0-99.0); MEAN PLATELET VOLUME 10.1 fL (7.9-10.8); MONOCYTES % (AUTO) 7.5 %; NEUTROPHILS % (AUTO) 79.1 %; PLT - PLATELET COUNT 160 10^3/uL (130-450); RED BLOOD COUNT 3.77 10^6/uL (4.20-5.40); RED CELL DISTRIBUTION WIDTH 14.3 % (12.0-15.0)
[2019-05-02 06:09] LABS: ALBUMIN/GLOBULIN RATIO 0.7 (1.0-2.2); BILIRUBIN,TOTAL 1.1 mg/dL (0.2-1.0); CALCIUM 8.1 mg/dL (8.5-10.3); CREATININE 0.7 mg/dL (0.4-1.0)
[2019-05-02] MEDS: PANTOPRAZOLE 40 MG TABLET PO SCH (06:41)
[2019-05-02] MEDS: LEVOTHYROXINE 88 MCG TABLET PO SCH (06:42)
[2019-05-02] MEDS: cloNIDine 0.1 MG TABLET PO PRN ×2 (06:42→15:43)
[2019-05-02] MEDS ORDERED: POTASSIUM CHLORIDE 20 MEQ TABLET PO SCH (08:00)
[2019-05-02] MEDS: ENOXAPARIN 30 MG/0.3 ML SYRINGE SUBQ SCH (09:23)
[2019-05-02] MEDS: POLYETHYLENE GLYCOL 3350 17 GM PACKET PO SCH (09:24)
[2019-05-02] MEDS: DOCUSATE SODIUM 250 MG CAPSULE PO SCH (09:24)
[2019-05-02] MEDS: SENNA 8.6 MG TABLET PO SCH (09:24)
[2019-05-02] MEDS: FUROSEMIDE 20 MG TABLET PO SCH (09:25)
[2019-05-02] MEDS: METOPROLOL SUCCINATE 25 MG TABLET PO SCH ×2 (09:25→21:00)
[2019-05-02] MEDS: SPIRONOLACTONE 25 MG TABLET PO SCH (09:25)
[2019-05-02] MEDS: LISINOPRIL 20 MG TABLET PO SCH ×2 (09:25→21:00)
[2019-05-02] MEDS: NYSTATIN POWDER 15 GM TOP SCH ×2 (09:26→21:01)
[2019-05-02] MEDS: VANCOMYCIN INJ 0.75 GM in SODIUM CHLORIDE 0.9% 250 ML IV SCH ×2 (10:43→22:19)
[2019-05-02] MEDS: guaiFENesin 600 MG TABLET PO SCH ×2 (14:43→21:00)
[2019-05-02] MEDS: metroNIDAZOLE 500 MG/100 ML 500 MG/100 ML BAG IV SCH (15:41)
[2019-05-02] MEDS ORDERED: MAGNESIUM SULFATE 1 GM in SODIUM CHLORIDE 0.9% 50 ML IV ONE (17:10)
--- NOTE | 2019-05-02 17:41 | PROVIDER PROGRESS NOTE ---
Assessment/Plan - Problem List (1) Gallstone pancreatitis Assessment/Plan: Resolved; tolerating a low fat diet well; rec: consider elective outpatient lap michelle after cardiac/pulmonary status has been fully evaluated and optimized, or if felt to be too high risk, the medical management alone might suffice. Spoke in detail with patient and daughter regarding this, and they are in agreement with this plan. (2) Cholecystitis, acute Assessment/Plan: resolved; see plan for biliary pancreatitis above. (3) CHF (congestive heart failure) Qualifiers: Heart failure type: diastolic Heart failure chronicity: acute Qualified Code(s): I50.31 - Acute diastolic (congestive) heart failure Assessment/Plan: as per Dr. Méndez. - Current Meds Current Meds: Current Medications Generic Name Dose Route Start Last Admin Trade Name Freq PRN Reason Stop Dose Admin Clonidine HCl 0.1 mg 05/01/19 09:23 05/02/19 15:43 Catapres PO 0.1 mg BID PRN Administration Hypertensive Emergency Docusate Sodium 250 - 500 mg 05/02/19 09:00 05/02/19 09:24 Colace 250mg Capsule PO 250 mg DAILY GIANA Administration Enoxaparin Sodium 30 mg 04/30/19 10:00 05/02/19 09:23 Lovenox SUBQ 30 mg DAILY GIANA Administration Furosemide 20 mg 05/01/19 10:00 05/02/19 09:25 Lasix PO 20 mg DAILY GIANA Administration Guaifenesin 600 mg 05/02/19 14:00 05/02/19 14:43 Mucinex PO 600 mg BID GIANA Administration Hydromorphone HCl 0.5 mg 04/26/19 20:11 04/29/19 20:47 Dilaudid Inj Syringe IVP 0.5 mg Q2H PRN Administration Pain 8 to 10 Vancomycin HCl 0.75 gm/ Sodium 250 mls @ 167 mls/hr 05/01/19 22:00 05/02/19 12:15 Chloride IV Infused Q12H GIANA Infusion Piperacillin Sod/Tazobactam 100 mls @ 200 mls/hr 05/01/19 14:00 05/02/19 15:20 Sod 3.375 gm/ Sodium Chloride IV Infused Q6H GIANA Infusion Metronidazole 500 mg in 100 mls @ 100 mls/hr 05/02/19 14:00 05/02/19 16:50 Flagyl 500 Mg/100 Ml IV Infused Q8H GIANA Infusion Levothyroxine Sodium 88 mcg 05/01/19 07:00 05/02/19 06:42 Synthroid PO 88 mcg QDAC GIANA Administration Lidocaine 1 patch 04/27/19 08:41 05/01/19 16:57 Lidoderm Patch TOP 1 patch DAILY PRN Administration PAIN Lisinopril 10 mg 05/01/19 21:00 05/02/19 09:25 Zestril PO 10 mg BID GIANA Administration Metoprolol Succinate 25 mg 05/01/19 21:00 05/02/19 09:25 Toprol Xl PO 25 mg BID GIANA Administration Mineral Oil 1 applic 04/27/19 06:24 04/27/19 08:24 Cavilon TOP 1 applic PRN PRN Administration Skin Care Nystatin 1 applic 04/27/19 09:00 05/02/19 09:26 Nystop TOP 1 applic BID GIANA Administration Oxycodone HCl 5 mg 04/27/19 12:06 04/30/19 20:38 Roxicodone PO 5 mg Q4HR PRN Administration PAIN Pantoprazole Sodium 40 mg 05/01/19 07:00 05/02/19 06:41 Protonix PO 40 mg QDAC GIANA Administration Polyethylene Glycol 17 gm 05/01/19 09:00 05/02/19 09:24 Miralax PO 17 gm DAILY GIANA Administration Senna 8.6 - 17.2 mg 05/02/19 09:00 05/02/19 09:24 Senokot PO 8.6 mg DAILY GIANA Administration Sodium Chloride 10 ml 04/26/19 20:11 05/01/19 23:11 Normal Saline Flush 0.9% IVP 10 ml PRN PRN Administration NEEDED PER PROVIDER ORDERS Sodium Chloride 10 ml 04/27/19 01:00 05/02/19 16:50 Normal Saline Flush 0.9% IVP 10 ml 0100,0900,1700 GIANA Administration Spironolactone 25 mg 04/29/19 13:35 05/02/19 09:25 Aldactone PO 25 mg DAILY GIANA Administration - Lab Result Lab results reviewed: Yes Fish Bone Diagrams: 05/02/19 05:06 05/02/19 05:06 - Additional Planning Condition/Complexity: Improved My Orders: My Active Orders 05/03/19 08:00 Saccharomyces Boulardii [Florastor] 250 mg PO BIDWM Plan Discussed with:: Patient, Family Time Spent: 15-30 minutes Subjective - Subjective Patient Reports: Feeling Better, Resting Comfortably, No Complaints (tolerating a low fat diet well so far; no abd pain, N/V, moved bowels today) Objective Vital Signs: Vital Signs - 24 hr 05/01/19 05/01/19 05/02/19 19:39 21:10 00:15 Temperature 36.9 C 36.9 C Heart Rate [ 81 75 79 Brachial] Respiratory 14 18 Rate Blood Pressure 154/71 H [Left Brachial artery] Blood Pressure [Right Brachial artery] Blood Pressure 155/94 H 182/93 H [Right Radial artery] O2 Saturation 95 94 05/02/19 05/02/19 05/02/19 01:00 05:00 07:35 Temperature 36.9 C 36.6 C Heart Rate [ 71 71 Brachial] Respiratory 18 18 Rate Blood Pressure 196/82 H [Left Brachial artery] Blood Pressure [Right Brachial artery] Blood Pressure 167/83 H 166/77 H [Right Radial artery] O2 Saturation 94 93 05/02/19 11:33 Temperature 36.8 C Heart Rate [ 71 Brachial] Respiratory 18 Rate Blood Pressure [Left Brachial artery] Blood Pressure 148/72 H [Right Brachial artery] Blood Pressure [Right Radial artery] O2 Saturation 96 Oxygen O2 Source Room air I&O (Last 24 Hrs): Intake and Output Totals x24h 04/30/19 05/01/19 05/02/19 23:59 23:59 23:59 Intake Total 1876 1310 1380 Output Total 200 1225 650 Balance 1676 85 730 General: Alert, Oriented x3, Cooperative Respiratory: Chest non-tender, No respiratory distress, Rales (bibasilar, left more than right) Abdomen: Soft, No tenderness, No hepatospenomegaly, No masses Extremities: No edema, No tenderness/swelling - Results Results: Laboratory Results WBC 14.0 x10^3/uL (4.8-10.8) H 05/02/19 05:06 RBC 3.77 10^6/uL (4.20-5.40) L 05/02/19 05:06 Hgb 10.6 g/dL (12.0-16.0) L 05/02/19 05:06 Hct 32.1 % (37.0-47.0) L 05/02/19 05:06 MCV 85.1 fL (81.0-99.0) 05/02/19 05:06 MCH 28.1 pg (27.0-31.0) 05/02/19 05:06 MCHC 33.0 g/dL (32.0-36.0) 05/02/19 05:06 RDW 14.3 % (12.0-15.0) 05/02/19 05:06 Plt Count 160 10^3/uL (130-450) 05/02/19 05:06 MPV 10.1 fL (7.9-10.8) 05/02/19 05:06 Neut # (Auto) 11.0 10^3/uL (1.5-6.6) H 05/02/19 05:06 Lymph # (Auto) 0.8 10^3/uL (1.5-3.5) L 05/02/19 05:06 [place] # (Auto) 1.0 10^3/uL (0.0-1.0) 05/02/19 05:06 Eos # (Auto) 0.2 10^3/uL (0.0-0.7) 05/02/19 05:06 Baso # (Auto) 0.1 10^3/uL (0.0-0.1) 05/02/19 05:06 Absolute Nucleated RBC 0.00 x10^3/uL 05/02/19 05:06 Total Counted 100 04/29/19 05:25 Band Neuts % (Manual) 27 % (0-10) H 04/29/19 05:25 Abnorm Lymph % (Manual) 0 % 04/29/19 05:25 Nucleated RBC % 0.0 /100WBC 05/02/19 05:06 Neutrophils # (Manual) 8.5 10^3/uL (1.5-6.6) H 04/29/19 05:25 Lymphocytes # (Manual) 0.7 10^3/uL (1.5-3.5) L 04/29/19 05:25 Monocytes # (Manual) 0.7 10^3/uL (0.0-1.0) 04/29/19 05:25 Eosinophils # (Manual) 0.0 10^3/uL (0-0.7) 04/29/19 05:25 Basophils # (Manual) 0.0 10^3/uL (0-0.1) 04/29/19 05:25 Differential Comment MANUAL DIFFERENTIAL 04/29/19 05:25 Manual Slide Review Indicated 04/27/19 12:41 Platelet Estimate NORMAL (130-450,000) (NORMAL) 04/29/19 05:25 RBC Morph Micro Appear NORMAL APPEARANCE (NORMAL) 04/29/19 05:25 Whole Blood INR 1.1 (0.8-1.2) 04/27/19 09:48 Sodium 139 mmol/L (135-145) 05/02/19 05:06 Potassium 3.0 mmol/L (3.5-5.0) L 05/02/19 05:06 Chloride 106 mmol/L (101-111) 05/02/19 05:06 Carbon Dioxide 24 mmol/L (21-32) 05/02/19 05:06 Anion Gap 9.0 (6-13) 05/02/19 05:06 BUN 14 mg/dL (6-20) 05/02/19 05:06 Creatinine 0.7 mg/dL (0.4-1.0) 05/02/19 05:06 Estimated GFR (MDRD) 79 (>89) L 05/02/19 05:06 Glucose 93 mg/dL (70-100) 05/02/19 05:06 Lactic Acid 1.4 mmol/L (0.5-2.2) 04/27/19 12:41 Calcium 8.1 mg/dL (8.5-10.3) L 05/02/19 05:06 Magnesium 1.4 mg/dL (1.7-2.8) L 05/02/19 05:00 Total Bilirubin 1.1 mg/dL (0.2-1.0) H 05/02/19 05:06 AST 20 IU/L (10-42) 05/02/19 05:06 ALT 55 IU/L (10-60) 05/02/19 05:06 Alkaline Phosphatase 173 IU/L (42-121) H 05/02/19 05:06 Troponin I High Sens 39.2 pg/mL (2.3-14.8) H* 04/30/19 00:12 B-Natriuretic Peptide 654 pg/mL (5-100) H 05/02/19 05:06 Total Protein 5.0 g/dL (6.7-8.2) L 05/02/19 05:06 Albumin 2.0 g/dL (3.2-5.5) L 05/02/19 05:06 Globulin 3.0 g/dL (2.1-4.2) 05/02/19 05:06 Albumin/Globulin Ratio 0.7 (1.0-2.2) L 05/02/19 05:06 Lipase 28 U/L (22-51) 05/01/19 05:22 Carcinoembryonic Ag 1.5 ng/mL 04/28/19 09:00 CA 125 Antigen 12.1 U/mL (0.0-35.0) 04/28/19 09:00 TSH 0.20 uIU/mL (0.34-5.60) L 04/28/19 04:40 ABX Reporting Has patient been on IV antibiotics over the past 48 hours?: Yes
[2019-05-02] MEDS: SODIUM CHLORIDE FLUSH 0.9% 10 ML SYRINGE IVP PRN (17:54)
--- NOTE | 2019-05-02 21:03 | PROVIDER PROGRESS NOTE ---
Assessment/Plan - Problem List (1) HCAP (healthcare-associated pneumonia) Assessment/Plan: The initial elevated white count improved after treatment with antibiotics for the gallbladder. Then a HCAP was seen on CXRs and antibiotics were started. In the last 3 days there is been increase of WBC from 12 to 13 to 14 today. Because of this I have added better anaerobic coverage today, with iv Flagyl to her other iv antibiotics. The daughter stated that she would like patient transferred to a center with higher level of care where there is Infectious disease, Pulmonary, GI, and Cardiology specialists. I discussed this option with the patient and she would like to be transferred to [facility], and if they are full then somewhere in [place]. I will pass this request on to tomorrow's Hospitalist, which I told the pt and daughter. (2) Acute diastolic (congestive) heart failure Assessment/Plan: I explained this diagnosis to her sister who is here from [place] for the last 2 days. She needs a cardiology evaluation and clearance before undergoing surgery here. Alternative is for management at a larger center with cardiology clearance there. (3) Cholecystitis, acute Assessment/Plan: Her abdominal exam is benign. Diet is being advanced today to sift food. The plan was for outpatient management of this problem, unless she is transferred. (4) PSVT (paroxysmal supraventricular tachycardia) Assessment/Plan: She had a long episode of SVT several days ago, was started on beta-blockers. Following that she has had bursts of SVT every evening and her new morning metoprolol was made bid yesterday. This appears to have worked in suppressing the SVT. (The home Lisinopril dose was decreased in order to inbcrease B- joe). (5) Hypokalemia Assessment/Plan: This is related to daily Lasix use, which was needed when she had pulmonary edema after receiving several days of IV fluids while she was n.p.o. (6) Hypomagnesemia Assessment/Plan: As above in #5 (7) Hypertension Assessment/Plan: BP controlled on current meds. (8) Pulmonary HTN Assessment/Plan: The echo showed mild to moderate, hypertension. (9) Pelvic mass in female Assessment/Plan: This was a new finding by imaging at admission and need further eval and management, the daughter is aware. (10) Gallstone pancreatitis Assessment/Plan: Lipases are normal for several days now. (11) KIZZY (acute kidney injury) Assessment/Plan: Resolved with hydration after several days. - Current Meds Current Meds: Current Medications Generic Name Dose Route Start Last Admin Trade Name Freq PRN Reason Stop Dose Admin Clonidine HCl 0.1 mg 05/01/19 09:23 05/02/19 15:43 Catapres PO 0.1 mg BID PRN Administration Hypertensive Emergency Docusate Sodium 250 - 500 mg 05/02/19 09:00 05/02/19 09:24 Colace 250mg Capsule PO 250 mg DAILY GIANA Administration Enoxaparin Sodium 30 mg 04/30/19 10:00 05/02/19 09:23 Lovenox SUBQ 30 mg DAILY GIANA Administration Furosemide 20 mg 05/01/19 10:00 05/02/19 09:25 Lasix PO 20 mg DAILY GIANA Administration Guaifenesin 600 mg 05/02/19 14:00 05/02/19 14:43 Mucinex PO 600 mg BID GIANA Administration Hydromorphone HCl 0.5 mg 04/26/19 20:11 04/29/19 20:47 Dilaudid Inj Syringe IVP 0.5 mg Q2H PRN Administration Pain 8 to 10 Vancomycin HCl 0.75 gm/ Sodium 250 mls @ 167 mls/hr 05/01/19 22:00 05/02/19 12:15 Chloride IV Infused Q12H GIANA Infusion Piperacillin Sod/Tazobactam 100 mls @ 200 mls/hr 05/01/19 14:00 05/02/19 20:20 Sod 3.375 gm/ Sodium Chloride IV Infused Q6H GIANA Infusion Metronidazole 500 mg in 100 mls @ 100 mls/hr 05/02/19 14:00 05/02/19 16:50 Flagyl 500 Mg/100 Ml IV Infused Q8H GIANA Infusion Levothyroxine Sodium 88 mcg 05/01/19 07:00 05/02/19 06:42 Synthroid PO 88 mcg QDAC GIANA Administration Lidocaine 1 patch 04/27/19 08:41 05/01/19 16:57 Lidoderm Patch TOP 1 patch DAILY PRN Administration PAIN Lisinopril 10 mg 05/01/19 21:00 05/02/19 09:25 Zestril PO 10 mg BID GIANA Administration Metoprolol Succinate 25 mg 05/01/19 21:00 05/02/19 09:25 Toprol Xl PO 25 mg BID GIANA Administration Mineral Oil 1 applic 04/27/19 06:24 04/27/19 08:24 Cavilon TOP 1 applic PRN PRN Administration Skin Care Nystatin 1 applic 04/27/19 09:00 05/02/19 09:26 Nystop TOP 1 applic BID GIANA Administration Oxycodone HCl 5 mg 04/27/19 12:06 04/30/19 20:38 Roxicodone PO 5 mg Q4HR PRN Administration PAIN Pantoprazole Sodium 40 mg 05/01/19 07:00 05/02/19 06:41 Protonix PO 40 mg QDAC GIANA Administration Polyethylene Glycol 17 gm 05/01/19 09:00 05/02/19 09:24 Miralax PO 17 gm DAILY GIANA Administration Senna 8.6 - 17.2 mg 05/02/19 09:00 05/02/19 09:24 Senokot PO 8.6 mg DAILY GIANA Administration Sodium Chloride 10 ml 04/26/19 20:11 05/02/19 17:54 Normal Saline Flush 0.9% IVP 10 ml PRN PRN Administration NEEDED PER PROVIDER ORDERS Sodium Chloride 10 ml 04/27/19 01:00 05/02/19 16:50 Normal Saline Flush 0.9% IVP 10 ml 0100,0900,1700 GIANA Administration Spironolactone 25 mg 04/29/19 13:35 05/02/19 09:25 Aldactone PO 25 mg DAILY GIANA Administration - Lab Result Fish Bone Diagrams: 05/02/19 05:06 05/02/19 05:06 - Additional Planning My Orders: My Active Orders 05/01/19 21:00 Lisinopril [Zestril] 10 mg PO BID Metoprolol Succinate [Toprol Xl] 25 mg PO BID 05/02/19 13:56 Acapella (Flutter Valve Device [RC] .TID 05/02/19 14:00 guaiFENesin [Mucinex] 600 mg PO BID metroNIDAZOLE 500 MG/100 ML [Flagyl 500 mg/100 ml] 500 mg in 100 ml IV Q8H 05/02/19 Dinner DIET [Low Fat Diet] [DIET] Subjective - Subjective Patient Reports: Resting Comfortably, Cough Objective Vital Signs: Vital Signs - 24 hr 05/01/19 05/02/19 05/02/19 21:10 00:15 01:00 Temperature 36.9 C Heart Rate [ 75 79 Brachial] Heart Rate [ Supine] Respiratory 18 Rate Respiratory Rate [With Activity] Blood Pressure 154/71 H [Left Brachial artery] Blood Pressure [Right Brachial artery] Blood Pressure 182/93 H 167/83 H [Right Radial artery] Blood Pressure [Supine] O2 Saturation 94 O2 Saturation [ With Activity] 05/02/19 05/02/19 05/02/19 05:00 07:35 11:33 Temperature 36.9 C 36.6 C 36.8 C Heart Rate [ 71 71 71 Brachial] Heart Rate [ Supine] Respiratory 18 18 18 Rate Respiratory Rate [With Activity] Blood Pressure 196/82 H [Left Brachial artery] Blood Pressure 148/72 H [Right Brachial artery] Blood Pressure 166/77 H [Right Radial artery] Blood Pressure [Supine] O2 Saturation 94 93 96 O2 Saturation [ With Activity] 05/02/19 05/02/19 17:00 17:18 Temperature 36.9 C Heart Rate [ 67 Brachial] Heart Rate [ 70 Supine] Respiratory 20 Rate Respiratory 16 Rate [With Activity] Blood Pressure [Left Brachial artery] Blood Pressure [Right Brachial artery] Blood Pressure 176/66 H [Right Radial artery] Blood Pressure 177/79 H [Supine] O2 Saturation 98 O2 Saturation [ 95 With Activity] Oxygen O2 Source [With Activity] Room air O2 Source Room air I&O (Last 24 Hrs): Intake and Output Totals x24h 04/30/19 05/01/19 05/02/19 23:59 23:59 23:59 Intake Total 1876 1310 1532 Output Total 200 1225 650 Balance 1676 85 882 General: Alert, Oriented x3 HEENT: Mucous membr. moist/pink Neck: Supple Neuro: Alert, Non Focal Cardiovascular: Regular rate Respiratory: No respiratory distress, Rhonchi, Other (R sided rhonchi) Abdomen: Soft Extremities: No edema - Results Results: Laboratory Results WBC 14.0 x10^3/uL (4.8-10.8) H 05/02/19 05:06 RBC 3.77 10^6/uL (4.20-5.40) L 05/02/19 05:06 Hgb 10.6 g/dL (12.0-16.0) L 05/02/19 05:06 Hct 32.1 % (37.0-47.0) L 05/02/19 05:06 MCV 85.1 fL (81.0-99.0) 05/02/19 05:06 MCH 28.1 pg (27.0-31.0) 05/02/19 05:06 MCHC 33.0 g/dL (32.0-36.0) 05/02/19 05:06 RDW 14.3 % (12.0-15.0) 05/02/19 05:06 Plt Count 160 10^3/uL (130-450) 05/02/19 05:06 MPV 10.1 fL (7.9-10.8) 05/02/19 05:06 Neut # (Auto) 11.0 10^3/uL (1.5-6.6) H 05/02/19 05:06 Lymph # (Auto) 0.8 10^3/uL (1.5-3.5) L 05/02/19 05:06 [place] # (Auto) 1.0 10^3/uL (0.0-1.0) 05/02/19 05:06 Eos # (Auto) 0.2 10^3/uL (0.0-0.7) 05/02/19 05:06 Baso # (Auto) 0.1 10^3/uL (0.0-0.1) 05/02/19 05:06 Absolute Nucleated RBC 0.00 x10^3/uL 05/02/19 05:06 Total Counted 100 04/29/19 05:25 Band Neuts % (Manual) 27 % (0-10) H 04/29/19 05:25 Abnorm Lymph % (Manual) 0 % 04/29/19 05:25 Nucleated RBC % 0.0 /100WBC 05/02/19 05:06 Neutrophils # (Manual) 8.5 10^3/uL (1.5-6.6) H 04/29/19 05:25 Lymphocytes # (Manual) 0.7 10^3/uL (1.5-3.5) L 04/29/19 05:25 Monocytes # (Manual) 0.7 10^3/uL (0.0-1.0) 04/29/19 05:25 Eosinophils # (Manual) 0.0 10^3/uL (0-0.7) 04/29/19 05:25 Basophils # (Manual) 0.0 10^3/uL (0-0.1) 04/29/19 05:25 Differential Comment MANUAL DIFFERENTIAL 04/29/19 05:25 Manual Slide Review Indicated 04/27/19 12:41 Platelet Estimate NORMAL (130-450,000) (NORMAL) 04/29/19 05:25 RBC Morph Micro Appear NORMAL APPEARANCE (NORMAL) 04/29/19 05:25 Whole Blood INR 1.1 (0.8-1.2) 04/27/19 09:48 Sodium 139 mmol/L (135-145) 05/02/19 05:06 Potassium 3.0 mmol/L (3.5-5.0) L 05/02/19 05:06 Chloride 106 mmol/L (101-111) 05/02/19 05:06 Carbon Dioxide 24 mmol/L (21-32) 05/02/19 05:06 Anion Gap 9.0 (6-13) 05/02/19 05:06 BUN 14 mg/dL (6-20) 05/02/19 05:06 Creatinine 0.7 mg/dL (0.4-1.0) 05/02/19 05:06 Estimated GFR (MDRD) 79 (>89) L 05/02/19 05:06 Glucose 93 mg/dL (70-100) 05/02/19 05:06 Lactic Acid 1.4 mmol/L (0.5-2.2) 04/27/19 12:41 Calcium 8.1 mg/dL (8.5-10.3) L 05/02/19 05:06 Magnesium 1.4 mg/dL (1.7-2.8) L 05/02/19 05:00 Total Bilirubin 1.1 mg/dL (0.2-1.0) H 05/02/19 05:06 AST 20 IU/L (10-42) 05/02/19 05:06 ALT 55 IU/L (10-60) 05/02/19 05:06 Alkaline Phosphatase 173 IU/L (42-121) H 05/02/19 05:06 Troponin I High Sens 39.2 pg/mL (2.3-14.8) H* 04/30/19 00:12 B-Natriuretic Peptide 654 pg/mL (5-100) H 05/02/19 05:06 Total Protein 5.0 g/dL (6.7-8.2) L 05/02/19 05:06 Albumin 2.0 g/dL (3.2-5.5) L 05/02/19 05:06 Globulin 3.0 g/dL (2.1-4.2) 05/02/19 05:06 Albumin/Globulin Ratio 0.7 (1.0-2.2) L 05/02/19 05:06 Lipase 28 U/L (22-51) 05/01/19 05:22 Carcinoembryonic Ag 1.5 ng/mL 04/28/19 09:00 CA 125 Antigen 12.1 U/mL (0.0-35.0) 04/28/19 09:00 TSH 0.20 uIU/mL (0.34-5.60) L 04/28/19 04:40 ABX Reporting Has patient been on IV antibiotics over the past 48 hours?: Yes
[2019-05-03] MEDS: metroNIDAZOLE 500 MG/100 ML 500 MG/100 ML BAG IV SCH ×2 (00:06→06:10)
[2019-05-03] MEDS: SODIUM CHLORIDE FLUSH 0.9% 10 ML SYRINGE IVP SCH ×3 (00:06→16:40)
[2019-05-03] MEDS: PIPERACILLIN/TAZOBACTAM 3.375 GM in SODIUM CHLORIDE 0.9% MINIBAG 100 ML IV SCH ×4 (02:29→20:12)
[2019-05-03 05:44] LABS: BASOPHILS % (AUTO) 0.6 %; EOSINOPHILS % (AUTO) 1.4 %; HGB - HEMOGLOBIN 10.6 g/dL (12.0-16.0); LYMPHOCYTES % (AUTO) 5.9 %; MEAN CORPUSCULAR HEMOGLOBIN 27.4 pg (27.0-31.0); MEAN CORPUSCULAR HGB CONC 32.4 g/dL (32.0-36.0); MEAN CORPUSCULAR VOLUME 84.5 fL (81.0-99.0); MEAN PLATELET VOLUME 9.5 fL (7.9-10.8); MONOCYTES % (AUTO) 7.1 %; NEUTROPHILS % (AUTO) 77.8 %; PLT - PLATELET COUNT 182 10^3/uL (130-450); RED BLOOD COUNT 3.87 10^6/uL (4.20-5.40); RED CELL DISTRIBUTION WIDTH 14.4 % (12.0-15.0); WHITE BLOOD COUNT 14.4 x10^3/uL (4.8-10.8)
[2019-05-03 05:48] LABS: ABNORMAL LYMPHS % (MANUAL) 0 %
[2019-05-03 06:37] LABS: BAND NEUTROPHILS % (MANUAL) 1 %; EOSINOPHILS # (MANUAL) 0.1 10^3/uL (0-0.7); LYMPHOCYTES % (MANUAL) 7 %; METAMYELOCYTES % (MANUAL) 1 %; MYELOCYTES % (MANUAL) 2 %
[2019-05-03 06:38] LABS: DIFFERENTIAL COMMENT MANUAL DIFFERENTIAL; PLATELET ESTIMATE, MANUAL NORMAL (130-450,000) (NORMAL); PLATELET MORPHOLOGY NORMAL APPEARANCE (NORMAL); RBC MORPHOLOGY (MULTIPLE) NORMAL APPEARANCE (NORMAL)
[2019-05-03] MEDS: LEVOTHYROXINE 88 MCG TABLET PO SCH (06:39)
[2019-05-03] MEDS: PANTOPRAZOLE 40 MG TABLET PO SCH (06:39)
[2019-05-03] MEDS ORDERED: hydrALAZINE INJ 20 MG/ML VIAL IVP PRN (07:22)
[2019-05-03] MEDS ORDERED: MAGNESIUM SULFATE 2 GRAM 2 GM/50 ML BAG IV SCH ×2 (07:58→08:00)
[2019-05-03 07:59] LABS: ALBUMIN 2.1 g/dL (3.2-5.5); ALBUMIN/GLOBULIN RATIO 0.7 (1.0-2.2); CREATININE 0.7 mg/dL (0.4-1.0)
[2019-05-03] MEDS ORDERED: MAGNESIUM OXIDE 400 MG TABLET PO SCH (08:00)
[2019-05-03] MEDS ORDERED: POTASSIUM CHLORIDE 20 MEQ TABLET PO SCH (08:03)
[2019-05-03] MEDS: SACCHAROMYCES BOULARDII 250 MG CAPSULE PO SCH ×2 (09:02→16:43)
[2019-05-03] MEDS: ENOXAPARIN 30 MG/0.3 ML SYRINGE SUBQ SCH (09:04)
[2019-05-03] MEDS: DOCUSATE SODIUM 250 MG CAPSULE PO SCH (09:04)
[2019-05-03] MEDS: guaiFENesin 600 MG TABLET PO SCH ×2 (09:05→20:25)
[2019-05-03] MEDS: LISINOPRIL 20 MG TABLET PO SCH ×2 (09:05→20:25)
[2019-05-03] MEDS: FUROSEMIDE 20 MG TABLET PO SCH ×2 (09:05→20:25)
[2019-05-03] MEDS: SPIRONOLACTONE 25 MG TABLET PO SCH (09:06)
[2019-05-03] MEDS: SENNA 8.6 MG TABLET PO SCH (09:06)
[2019-05-03] MEDS: METOPROLOL SUCCINATE 25 MG TABLET PO SCH ×2 (09:06→20:25)
[2019-05-03] MEDS: POLYETHYLENE GLYCOL 3350 17 GM PACKET PO SCH (09:06)
[2019-05-03] MEDS: NYSTATIN POWDER 15 GM TOP SCH (09:07)
[2019-05-03] MEDS: ACYCLOVIR 200 MG CAPSULE PO SCH ×3 (09:19→18:40)
[2019-05-03] MEDS: VANCOMYCIN INJ 0.75 GM in SODIUM CHLORIDE 0.9% 250 ML IV SCH (10:10)
[2019-05-03] MEDS: SODIUM CHLORIDE FLUSH 0.9% 10 ML SYRINGE IVP PRN ×2 (13:16→20:12)
--- NOTE | 2019-05-03 16:01 | DISCHARGE SUMMARY ---
"Discharge Summary Admit Date: 04/26/19 Discharge Date: 05/03/19 Discharging Provider: PROCTOR Primary Care Provider: Shayna Zarate Condition at Discharge: Serious Discharge Disposition: 02 Transfer Acute Care Hosp Discharge Facility Name: [facility] - DIAGNOSES Admission Diagnoses: (1) Gallstone pancreatitis (2) Leukocytosis (3) Hypertension (4) Hypothyroidism (5) GERD (gastroesophageal reflux disease) (6) Osteoporosis (7) Chronic back pain (8) Hypokalemia Discharge Diagnoses with Status of Each Condition: (1) HCAP (healthcare-associated pneumonia) pt was treated with antibiotics in hospital. pt and her daughter request transfer for high level care. IPt was transferred to [facility]. [facility] has no bed available. I reported pt's condition to [facility] hospitalist. pt was accepted by hospitalist in [facility] (2) Acute diastolic (congestive) heart failure pt was transferred to [facility] for high level care. I reported pt's condition to [facility] credit card associate. pt was accepted by credit card associate in [facility] (3) Cholecystitis, acute pt was consulted with GI surgeon, Dr. Gonzales. pt has no surgery done at this hospital due to high risk per surgeon's review. I reported pt's condition to [facility] to surgeon, pt was accepted by surgeon in [facility] (4) PSVT (paroxysmal supraventricular tachycardia) pt was transferred to [facility] for high level care. I reported pt's condition to [facility] credit card associate. pt was accepted by credit card associate in [facility] (5) Hypokalemia placed (6) Hypomagnesemia placed (7) Hypertension pt has new meds Metoprolol, Spironolactone, and Lasix. Spironolactone was increased to bid 25 mg. PRN hydralazine and Clonidine (8) Pulmonary HTN pt was transferred to [facility] for high level care. I reported pt's condition to [facility] credit card associate. pt was accepted by credit card associate in [facility] (9) Pelvic mass in female pt was consulted with OBGN. US reveals likely benign cystic mass, report to [facility] (10) Gallstone pancreatitis pt was consulted with GI surgeon, Dr. Gonzales. pt has no surgery done at this hospital due to high risk per surgeon's review. I reported pt's condition to [facility] to surgeon, pt was accepted by surgeon in [facility] (11) KIZZY (acute kidney injury) resolved - HPI History of Present Illness: refer from Dr. Ibarra' HPI on 04/26/19 Patient seen and examined on 04/26/19 around 21:00pm Patient is an 88 y/o female who presented to the ED with complain of epigastric pain which start this morning when she was having breakfast. She reports vomiting about 4 times today. She did not have any problems with dinner last night. She has had similar symptoms in the past and it was managed medically. She denied chest pain, dyspnea, fever or chills. She has chronic back pain. She rated her pain 10/10 at onset and currently 7/10. In the ED she was found to have a lipase of 1600. Abdominal US showed sludge in gallbladder, nonspecific gallbladder wall thickening and pericholecystic fluid. As a result she was presented for admission for further management. - CONSULTS | PROCEDURES Consultations: surgoen Dr.Garth Gonzales, and OBGN Dr. Ramirez Procedures: no procedure done - HOSPITAL COURSE Hospital Course: pt was admitted for nausea, vomiting and abdominal pain. pt was found to have pancreatitis, and acute cholecystitis per CT of abdomen. pt then developed KIZZY, respiratory distress, pt was found to have pneumonia, and diastoli heart failure and pulmonary HTN, and PSVT. Pt has no surgery per surgeon's review of high risk. pt also was found to have pelvic mass. pt was consulted with OBGY. US reveals likely benign cystic mass. pt's WBC continue running high even pt has fully treated with antibiotics. pt and pt's daughter request to be transfered to high level of care. [facility] report there was no bed available. Pt then was accepted by [facility]. pt was transferred to [facility] for high level of care. the detail hospital course is as the below: 1) HCAP (healthcare-associated pneumonia) pt was treated with antibiotics in hospital. pt and her daughter request transfer for high level care. IPt was transferred to [facility]. [facility] has no bed available. I reported pt's condition to [facility] hospitalist. pt was accepted by hospitalist in [facility] (2) Acute diastolic (congestive) heart failure pt was transferred to [facility] for high level care. I reported pt's condition to [facility] credit card associate. pt was accepted by credit card associate in [facility] (3) Cholecystitis, acute pt was consulted with GI surgeon, Dr. Gonzales. pt has no surgery done at this hospital due to high risk per surgeon's review. I reported pt's condition to [facility] to surgeon, pt was accepted by surgeon in [facility] (4) PSVT (paroxysmal supraventricular tachycardia) pt was transferred to [facility] for high level care. I reported pt's condition to [facility] credit card associate. pt was accepted by credit card associate in [facility] (5) Hypokalemia placed (6) Hypomagnesemia placed (7) Hypertension pt has new meds Metoprolol, Spironolactone, and Lasix. Spironolactone was increased to bid 25 mg. PRN hydralazine and Clonidine (8) Pulmonary HTN pt was transferred to [facility] for high level care. I reported pt's condition to [facility] credit card associate. pt was accepted by credit card associate in [facility] (9) Pelvic mass in female pt was consulted with OBGN. US reveals likely benign cystic mass, report to [facility] (10) Gallstone pancreatitis pt was consulted with GI surgeon, Dr. Gonzales. pt has no surgery done at this hospital due to high risk per surgeon's review. I reported pt's condition to [facility] to surgeon, pt was accepted by surgeon in [facility] (11) KIZZY (acute kidney injury) resolved - ALLERGIES Allergies/Adverse Reactions: Allergies Allergy/AdvReac Type Severity Reaction Status Date / Time No Known Drug Allergies Allergy Verified 04/26/19 17:19 - MEDICATIONS Home Medications: Ambulatory Orders Medication Instructions Recorded Confirmed Multivitamin [Multivitamins] 1 each PO DAILY 12/13/17 04/27/19 Omeprazole [PriLOSEC] 20 mg PO DAILY 12/13/17 04/27/19 Calcium Carbonate/Vitamin D3 1 tab PO BID 12/14/17 04/27/19 [Calcium 600 + Vit D 400 Tablet] Hydrochlorothiazide 12.5 mg PO DAILY 12/14/17 04/27/19 Levothyroxine [Synthroid] 100 mcg PO QDAC 12/14/17 04/27/19 Lisinopril 20 mg PO BID 12/14/17 04/27/19 - PHYSICAL EXAM AT DISCHARGE General Appearance: positive: No acute distress, Alert. negative: Lethargic Eyes Bilateral: positive: Normal inspection, PERRL, No lid inflammation, Conjunctivae nml ENT: positive: ENT inspection nml, Pharynx nml, No signs of dehydration. negative: Purulent nasal drainage, Pharyngeal erythema, Oral lesions Neck: positive: Nml inspection, Thyroid nml, No JVD, Trachea midline. negative: Thyromegaly, Lymphadenopathy (R), Lymphadenopathy (L), Stiff neck, Swelling/bruising, Tracheal deviation Respiratory: positive: Chest non-tender, No respiratory distress. negative: Wheezes, Rales Cardiovascular: positive: Regular rate & rhythm, No murmur, No gallop. negative: Irregularly irregular, Extrasystoles, Tachycardia, Bradycardia, JVD present, Systolic murmur, Diastolic murmur Peripheral Pulses: positive: 2+ Abdomen: positive: Non-tender, No organomegaly, Nml bowel sounds, No distention. negative: Tenderness, Guarding, Rebound Back: positive: Nml inspection. negative: CVA tenderness (R), CVA tenderness (L) Skin: positive: Color nml, No rash, Warm, Dry. negative: Cyanosis, Diaphoresis, Pallor Extremities: positive: Non-tender, Nml appearance. negative: Calf tenderness, Joint swelling, Steve's sign/cords Neurologic/Psychiatric: positive: Oriented x3, Sensation nml, Mood/affect nml. negative: Weakness, Sensory loss, Facial droop, Slurred/abnml speech, Depressed mood/affect - LABS Result Diagrams: 05/03/19 05:28 05/03/19 05:28 - FOLLOW UP Follow Up: pt was transferred to [facility] for high level care - TIME SPENT Time Spent in Discharge (Minutes): 60"
[2019-05-03 20:18] VITALS: BP 171/69
[2019-05-03] MEDS ORDERED: SPIRONOLACTONE 25 MG TABLET PO SCH (21:00)
== END 2019-05-03 20:43 | disposition short-term general hospital (02) | DRG 438 ==
LOC: EDUNIT# → ED 17:11 → MS2 20:11
PROVIDERS: ADMIT Internal Medicine; ATTEND Nurse Practitioner Gerontology
DX: K85.10 Biliary acute pancreatitis without necrosis or infection (principal); I10 Essential (primary) hypertension; J18.9 Pneumonia, unspecified organism; I50.31 Acute diastolic (congestive) heart failure; K80.00 Calculus of gallbladder with acute cholecystitis without obstruction; I47.1 Supraventricular tachycardia; N17.9 Acute kidney failure, unspecified; I11.0 Hypertensive heart disease with heart failure; Y95 Nosocomial condition; E87.6 Hypokalemia; E83.42 Hypomagnesemia; I27.29 Other secondary pulmonary hypertension; E03.9 Hypothyroidism, unspecified; R19.00 Intra-abdominal and pelvic swelling, mass and lump, unspecified site; R32 Unspecified urinary incontinence; K21.9 Gastro-esophageal reflux disease without esophagitis; G89.29 Other chronic pain; M54.9 Dorsalgia, unspecified; M81.0 Age-related osteoporosis without current pathological fracture; M19.90 Unspecified osteoarthritis, unspecified site; H53.2 Diplopia; H91.90 Unspecified hearing loss, unspecified ear; Z90.710 Acquired absence of both cervix and uterus
CPT/HCPCS: 36415; 71045; 71046; 74176; 76705; 76830; 76856; 80053; 80202; 82378; 83605; 83690; 83735; 83880; 84439; 84443; 84484; 85025; 85610; 86304; 93005; 93306; 96374; 99285; A6250; A9270; J1170; J1650; J3370; J7040